=== PATIENT | female | born 1940 | race Caucasian/White ===

== ENCOUNTER 2020-11-23 16:35 | Inpatient (IN) ==
[2020-11-23] MEDS ORDERED: 0.9 % SODIUM CHLORIDE 1,000 ML IV ONE (16:55)
--- NOTE | 2020-11-23 17:03 | Emergency Department Note ---
HPI General Chief complaint: Cold/Flu Symptoms Stated complaint: covid symptoms, hypoxia Time Seen by Provider: 11/23/20 16:38 Source: patient Mode of arrival: ambulatory Limitations: no limitations History of Present Illness HPI Narrative: Narrative: 80-year-old female presents emergency department with concerns of shortness of breath. She was seen by her primary care provider today who performed a CT of her chest which showed disseminated groundglass opacities. She had received her 1st COVID-19 vaccination on 11/07/2020. Patient reports that since then she has feels that she is slowly declining more and more and getting progressively short of breath. And the shortness of breath is worse with exertion. She endorses nonproductive cough. She denies headache, changes in vision(although she has been treated by Dr. Garcia for quite some time for some changes to her vision but nothing acute in the last 2 weeks) fever, abdominal pain, nausea, vomiting, chest pain, diarrhea. Related Data Previous Rx's Medication Instructions Recorded ascorbate calcium (vitamin C) 500 500 mg PO QDAY #90 tab 11/19/20 mg tablet ferrous sulfate 325 mg (65 mg 325 mg PO QDAY #90 tab 11/19/20 iron) tablet Allergies Allergy/AdvReac Type Severity Reaction Status Date / Time No Known Drug Allergies Allergy Verified 11/16/20 13:30 Review of Systems ROS ROS Narrative: Narrative: She denies headache, fever change in vision, chest pain, abdominal pain, nausea, vomiting, diarrhea. All systems ED: reviewed and negative except as stated. [facility] Narrative Patient History Narrative: Narrative: Medical/Surgical/Family History All Active Problems (Updated 11/23/20 @ 19:43 by Rashad Menchaca PA-C) Hypoxia (Acute) Viral pneumonia (Acute) Elevated TSH (Acute) Bilateral pulmonary infiltrates on chest x-ray (Acute) Memory impairment (Acute) Low oxygen saturation (Acute) Depression (Acute) Encounter for post surgical wound check (Acute) Cellulitis of left hand (Acute) Sprain of collateral ligament of right knee (Acute) Closed fracture of tibial plateau (Acute) Medical History Cellulitis of left hand Encounter for post surgical wound check Surgical History H/O heart surgery (~1963) Family History Father , age 55 Lung cancer, Onset Age: 55 smoker Social History Smoking Status: Never smoker Alcohol Intake Frequency: does not drink Substance Use: does not use Exam Narrative Narrative: Narrative: General Limitations: no limitations Head Head: Present atraumatic, normocephalic and normal inspection Eye Eye: Present normal appearance and EOMI ENT ENT: Present other (Oropharynx normal. Patient has dry mucous membranes.) Respiratory Respiratory: Present other (Diffuse Rales. While on 2 L O2 she has normal respiratory rate and is not in any acute respiratory distress.) Cardiovascular Cardiovascular: Present regular rate, normal rhythm and normal heart sounds Adbominal Abdominal: Present soft and other (Nondistended, no organomegaly no rebound tenderness no guarding.) Neurological Neurological: Present alert and oriented X3 Psychiatric Psychiatric: Present anxious Skin Skin: Present warm (WNL), dry and normal color Course Vital Signs Vital signs: Vital Signs Temperature 98.6 F 11/23/20 16:36 Pulse Rate 75 11/23/20 16:36 Respiratory Rate 22 11/23/20 16:36 Blood Pressure 138/80 11/23/20 16:36 Pulse Oximetry (%) 55 L 11/23/20 16:36 Temperature 98.6 F 11/23/20 16:36 Pulse Rate 53 L 11/23/20 19:16 Respiratory Rate 25 H 11/23/20 19:16 Blood Pressure 120/57 11/23/20 19:16 Pulse Oximetry (%) 98 11/23/20 19:16 [facility] MDM Narrative Medical decision making narrative: Narrative: CT of the chest today showed:IMPRESSION: Disseminated severe groundglass opacities throughout both lungs concerning for multifocal infection i.e. viral pneumonia (cannot exclude COVID infection). Above findings are superimposed on mild pulmonary edema and moderate symmetric bronchiectasis. Cardiomegaly is noted. 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 Interpreted and Authenticated by: Serg Casiano M.D. Labs reviewed, no sign of bacterial infection, rapid Covid negative. A respiratory panel 1 and 2 and a PCR Covid send outs ordered. Normal pro-BMP. This still could be Covid pneumonia but along with the patient's severe hypoxia patient will be admitted for further evaluation and treatment. I have started remdesivir and dexamethasone here in the emergency department. Dr. Barnett has agreed to admit the patient. Lab Data Result diagrams: 11/23/20 17:17 11/23/20 17:17 Labs: Lab Results 11/23/20 11/23/20 11/23/20 Range/Units 17:17 17:17 17:17 WBC (4.5-11.0) K/mcL RBC (4.00-5.20) M/mcL Hgb (12.0-15.0) g/dL Hct (36.0-48.0) % MCV (80.0-100.0) fL MCH (26.0-34.0) pg MCHC (31.0-36.0) g/dL RDW (11.5-14.5) % Plt Count (140-440) K/mcL MPV (7.4-10.4) fL Neut % (Auto) (38.0-78.0) % Lymph % (Auto) (15.0-49.0) % Henderson % (Auto) (1.0-12.0) % Eos % (Auto) (0.0-7.0) % Baso % (Auto) (0.0-2.0) % Lymph # (Auto) (1.50-4.80) K/mcL Henderson # (Auto) (0.10-0.90) K/mcL Eos # (Auto) (0.00-0.70) K/mcL Baso # (Auto) (0.00-0.20) K/mcL Absolute Neutrophils (1.80-8.00) K/mcL ABG Methemoglobin (0.4-1.5) % VBG pH U VBG pCO2 mmHg VBG pO2 mmHg VBG HCO3 mmol/L VBG Total CO2 mmol/L VBG O2 Saturation % VBG Base Excess (-2-3) VBG Lactic Acid 1.4 (0.5-2.0) mmol/L Carboxyhemoglobin (0.0-1.5) % THgb Total Hemoglobin (13.5-16.5) gm/Dl Sodium 137 (133-145) mmol/L Potassium 3.8 (3.3-5.1) mmol/L Chloride 101 (96-108) mmol/L Carbon Dioxide 28 (22-30) mmol/L Anion Gap 8.0 (8.0-16.0) BUN 24 H (8-23) mg/dL Creatinine 0.9 (0.6-1.1) mg/dL GFR Calculation 60 Glucose 116 H (70-105) mg/dL Calcium 8.9 (8.6-10.4) mg/dL Magnesium 2.2 (1.6-2.5) mg/dL Total Bilirubin 0.3 (0.1-1.0) mg/dL AST 19 (<32) U/L ALT < 5 (<40) U/L Alkaline Phosphatase 45 (39-117) U/L Total Creatine Kinase 167 (24-170) U/L NT-Pro-B Natriuret Pep 229.2 (<450.0) pg/mL Total Protein 6.9 (5.9-8.4) gm/dL Albumin 3.1 L (3.2-5.2) gm/dL Globulin 3.8 H (2.2-3.7) gm/dL Albumin/Globulin Ratio 0.8 L (1.0-2.3) Lipase 38 (7-60) U/L Procalcitonin 0.14 H (<0.10) ng/mL 11/23/20 11/23/20 Range/Units 17:17 17:17 WBC 7.7 (4.5-11.0) K/mcL RBC 3.11 L (4.00-5.20) M/mcL Hgb 9.9 L (12.0-15.0) g/dL Hct 31.4 L (36.0-48.0) % MCV 101.0 H (80.0-100.0) fL MCH 31.8 (26.0-34.0) pg MCHC 31.5 (31.0-36.0) g/dL RDW 14.2 (11.5-14.5) % Plt Count 346 (140-440) K/mcL MPV 9.4 (7.4-10.4) fL Neut % (Auto) 82.2 H (38.0-78.0) % Lymph % (Auto) 8.3 L (15.0-49.0) % Henderson % (Auto) 6.5 (1.0-12.0) % Eos % (Auto) 2.6 (0.0-7.0) % Baso % (Auto) 0.4 (0.0-2.0) % Lymph # (Auto) 0.64 L (1.50-4.80) K/mcL Henderson # (Auto) 0.50 (0.10-0.90) K/mcL Eos # (Auto) 0.20 (0.00-0.70) K/mcL Baso # (Auto) 0.03 (0.00-0.20) K/mcL Absolute Neutrophils 6.35 (1.80-8.00) K/mcL ABG Methemoglobin 0.3 L (0.4-1.5) % VBG pH 7.43 U VBG pCO2 44.6 mmHg VBG pO2 41.1 mmHg VBG HCO3 28.9 mmol/L VBG Total CO2 30.3 mmol/L VBG O2 Saturation 67.6 % VBG Base Excess 4 H (-2-3) VBG Lactic Acid (0.5-2.0) mmol/L Carboxyhemoglobin 6.7 H (0.0-1.5) % THgb Total Hemoglobin 10.0 L (13.5-16.5) gm/Dl Sodium (133-145) mmol/L Potassium (3.3-5.1) mmol/L Chloride (96-108) mmol/L Carbon Dioxide (22-30) mmol/L Anion Gap (8.0-16.0) BUN (8-23) mg/dL Creatinine (0.6-1.1) mg/dL GFR Calculation Glucose (70-105) mg/dL Calcium (8.6-10.4) mg/dL Magnesium (1.6-2.5) mg/dL Total Bilirubin (0.1-1.0) mg/dL AST (<32) U/L ALT (<40) U/L Alkaline Phosphatase (39-117) U/L Total Creatine Kinase (24-170) U/L NT-Pro-B Natriuret Pep (<450.0) pg/mL Total Protein (5.9-8.4) gm/dL Albumin (3.2-5.2) gm/dL Globulin (2.2-3.7) gm/dL Albumin/Globulin Ratio (1.0-2.3) Lipase (7-60) U/L Procalcitonin (<0.10) ng/mL ED POC Tests ED POC Tests: ALICJA - SARS Antigen Negative EKG Data EKG #1: EKG results narrative: ECG shows possible sinus rhythm at 62 beats a minute. Normal axis, cannot determine FL interval, narrow QRS normal QTC. There are no signs of gout, Quctm-Dodhcjtom-Kllgk or HOCM. No dagger Q waves. There is no ST segment deviations or hyperacute T waves. Interpretation is possible sinus rhythm but low voltage. EKG #2: EKG results narrative: Second ECG is a slow down to the millimeters a second. Sinus bradycardia at 58 beats a minute. There is identifiable P waves with borderline first-degree AV block. Normal axis, otherwise there is no ST segment deviations or hyperacute T waves or other signs of ischemia. My interpretation is sinus bradycardia. Discharge Plan Patient/Caregiver Discharge Instructions Pt seen by STREET SUPERVISOR/PA only: Yes Clinical Impression: Hypoxia, Viral pneumonia Patient Disposition: Xfer As Inpt ([facility]) Condition: Fair Follow up with: Zita Forde PA-C [Primary Care Provider] - Prescriptions: No Action ferrous sulfate [Feosol] 325 mg (65 mg iron) tablet 325 mg PO QDAY Qty: 90 RF: 1 ascorbate calcium (vitamin C) 500 mg tablet 500 mg PO QDAY Qty: 90 RF: 1
[2020-11-23 17:56] LABS: ABG Methemoglobin 0.3 % (0.4-1.5); VBG Base Excess 4 (-2-3); VBG HCO3 28.9 mmol/L; VBG Oxygen Saturation 67.6 %; VBG PCO2 44.6 mmHg; VBG PH 7.43 U; VBG PO2 41.1 mmHg; VBG Total CO2 30.3 mmol/L
[2020-11-23 18:04] LABS: Basophils # (Auto) 0.03 K/mcL (0.00-0.20); Basophils % (Auto) 0.4 % (0.0-2.0); Eosinophils % (Auto) 2.6 % (0.0-7.0); Hematocrit 31.4 % (36.0-48.0); Hemoglobin 9.9 g/dL (12.0-15.0); Lymphocytes # (Auto) 0.64 K/mcL (1.50-4.80); Lymphocytes % (Auto) 8.3 % (15.0-49.0); Mean Corpuscular HGB Conc 31.5 g/dL (31.0-36.0); Mean Platelet Volume 9.4 fL (7.4-10.4); Monocytes % (Auto) 6.5 % (1.0-12.0); Neutrophils % (Auto) 82.2 % (38.0-78.0); Platelet Count 346 K/mcL (140-440); RBC 3.11 M/mcL (4.00-5.20); Red Cell Distribution Width 14.2 % (11.5-14.5); WBC 7.7 K/mcL (4.5-11.0)
[2020-11-23 18:22] LABS: proBNP 229.2 pg/mL (<450.0)
[2020-11-23 18:25] LABS: ALT/SGPT < 5 U/L (<40); AST/SGOT 19 U/L (<32); Albumin 3.1 gm/dL (3.2-5.2); Albumin/Globulin Ratio 0.8 (1.0-2.3); Alkaline Phosphatase 45 U/L (39-117); Bilirubin,Total 0.3 mg/dL (0.1-1.0); Blood Urea Nitrogen 24 mg/dL (8-23); Calcium 8.9 mg/dL (8.6-10.4); Carbon Dioxide 28 mmol/L (22-30); Chloride 101 mmol/L (96-108); Creatine Kinase 167 U/L (24-170); Globulin 3.8 gm/dL (2.2-3.7); Glomerular Filtration Rate 60; Glucose 116 mg/dL (70-105)
[2020-11-23] MEDS ORDERED: DEXAMETHASONE 10 MG/ML VIAL IV ONE (19:27)
[2020-11-23] MEDS ORDERED: REMDESIVIR 200 MG in 0.9 % SODIUM CHLORIDE 250 ML IV ONE ×2 (19:27→20:57)
--- NOTE | 2020-11-23 20:15 | Internal Med History&Physical ---
HPI History of Present Illness Patient information: Note initiated : 11/23/20 at 8:10 pm Service Date, if different from initiated Date: [] Patient: Mouna Jorgensen a 80 y/o F admitted on for covid symptoms, hypoxia. Chief Complaint: Shortness of breath History of present illness: Ms. Jorgensen is a 80 year old F with no significant prior medical history who presents to the ER with 3 weeks onset of worsening shortness of breath, malaise, weakness and loss of appetite. Patient had a short of Covid vaccine 3 weeks ago and following that she has noticed increasing malaise and a gradual decline in general functionality. 2 weeks prior to presentation started experiencing exertional shortness of breath which has progressed very and even minimal activity would lead to dyspnea. She was evaluated at primary care physician's office with a CT chest that showed multifocal chest infiltrates. She was directed to the ER for further evaluation Initial work-up was consistent with hypoxia spray failure requiring 6 L oxygen. Patient was started on remdesivir/dexamethasone after Covid test was ordered. Hospitalist service was consulted At the time of my evaluation patient is alert and was able to answer most the questions. She denies hemoptysis/diarrhea, dysuria endorses to myalgia weakness and generalized malaise and loss of appetite. She denies dysuria, diarrhea, headache, neck stiffness or photophobia. Review of systems A 10 point review system was performed and is negative except for ones discussed above PFSH PFSH All Active Problems (Updated 11/23/20 @ 19:43 by Rashad Menchaca PA-C) Hypoxia (Acute) Viral pneumonia (Acute) Elevated TSH (Acute) Bilateral pulmonary infiltrates on chest x-ray (Acute) Memory impairment (Acute) Low oxygen saturation (Acute) Depression (Acute) Encounter for post surgical wound check (Acute) Cellulitis of left hand (Acute) Sprain of collateral ligament of right knee (Acute) Closed fracture of tibial plateau (Acute) Medical History Cellulitis of left hand Encounter for post surgical wound check Surgical History H/O heart surgery (~1963) Family History Father , age 55 Lung cancer, Onset Age: 55 smoker Social History adopted: No caregiver/support person: No foster care: No household members: spouse lives independently: Yes marital status: education level: college smoking status: Never smoker alcohol intake frequency: does not drink substance use type: does not use MEDS/ALLERGIES Home Medications and Allergies Home Medications Medication Instructions Recorded Confirmed Type ascorbate calcium (vitamin C) 500 500 mg PO QDAY #90 tab 11/19/20 11/23/20 Rx mg tablet ferrous sulfate 325 mg (65 mg 325 mg PO QDAY #90 tab 11/19/20 11/23/20 Rx iron) tablet Allergies Allergy/AdvReac Type Severity Reaction Status Date / Time No Known Drug Allergies Allergy Verified 11/16/20 13:30 EXAM Constitutional Vitals: Temp Pulse Resp BP Pulse Ox 98.6 F 58 L 22 137/60 96 11/23/20 16:36 11/23/20 19:46 11/23/20 19:46 11/23/20 19:46 11/23/20 19:46 Thin and frail elderly Head normocephalic Oral cavity moist No ear nose discharge Eye movement symmetrical Neck supple no lymphadenopathy S1-S2 occasionally irregular Minimally labored breathing Nondistended nontender abdomen Lower extremity no cyanosis clubbing or joint swelling Skin no suspicious lesion Psych anxious but alert cooperative Neuro normal higher function DATA Data Completed and Pending Labs: Labs from last 24 hours 11/23/20 11/23/20 11/23/20 17:17 17:17 17:17 WBC 7.7 RBC 3.11 L Hgb 9.9 L Hct 31.4 L MCV 101.0 H MCH 31.8 MCHC 31.5 RDW 14.2 Plt Count 346 MPV 9.4 Neut % (Auto) 82.2 H Lymph % (Auto) 8.3 L Park % (Auto) 6.5 Eos % (Auto) 2.6 Baso % (Auto) 0.4 Lymph # (Auto) 0.64 L [place] # (Auto) 0.50 Eos # (Auto) 0.20 Baso # (Auto) 0.03 Absolute Neutrophils 6.35 ABG Methemoglobin 0.3 L VBG pH 7.43 VBG pCO2 44.6 VBG pO2 41.1 VBG HCO3 28.9 VBG Total CO2 30.3 VBG O2 Saturation 67.6 VBG Base Excess 4 H VBG Lactic Acid Carboxyhemoglobin 6.7 H Total Hemoglobin 10.0 L Sodium Potassium Chloride Carbon Dioxide Anion Gap BUN Creatinine GFR Calculation Glucose Calcium Magnesium Total Bilirubin AST ALT Alkaline Phosphatase Total Creatine Kinase NT-Pro-B Natriuret Pep Total Protein Albumin Globulin Albumin/Globulin Ratio Lipase Procalcitonin 0.14 H 11/23/20 11/23/20 17:17 17:17 WBC RBC Hgb Hct MCV MCH MCHC RDW Plt Count MPV Neut % (Auto) Lymph % (Auto) Park % (Auto) Eos % (Auto) Baso % (Auto) Lymph # (Auto) [place] # (Auto) Eos # (Auto) Baso # (Auto) Absolute Neutrophils ABG Methemoglobin VBG pH VBG pCO2 VBG pO2 VBG HCO3 VBG Total CO2 VBG O2 Saturation VBG Base Excess VBG Lactic Acid 1.4 Carboxyhemoglobin Total Hemoglobin Sodium 137 Potassium 3.8 Chloride 101 Carbon Dioxide 28 Anion Gap 8.0 BUN 24 H Creatinine 0.9 GFR Calculation 60 Glucose 116 H Calcium 8.9 Magnesium 2.2 Total Bilirubin 0.3 AST 19 ALT < 5 Alkaline Phosphatase 45 Total Creatine Kinase 167 NT-Pro-B Natriuret Pep 229.2 Total Protein 6.9 Albumin 3.1 L Globulin 3.8 H Albumin/Globulin Ratio 0.8 L Lipase 38 Procalcitonin A/P Narrative A/P Narrative: * Acute hypoxic respiratory failure-start supplemental oxygen and treatment of primary etiology. * Multifocal pneumonia possibly atypical, rule out Covid/bacterial pneumonia. Start empiric antibiotics/remdesivir/dexamethasone. * Protein calorie malnutrition/weakness and loss of appetite likely secondary to acute viral infection. Type intervention * Full code * Prophylaxis Heparin Plan * Inpatient admission * Noninvasive ventilation if indicated * Remdesivir dexamethasone/thrombosis prophylaxis/empiric antibiotics * Serial inflammatory markers * PT OT nutrition support Time Spent With Patient Time: Total time spent is greater than 50% in coordination of care (as documented) at patient's floor/unit and/or counseling patient:
[2020-11-23] MEDS ORDERED: MAGNESIUM SULFATE 2 GM/50 ML BAG IV PRN (20:57)
[2020-11-23] MEDS ORDERED: ALBUTEROL SULFATE 200 PUFF INHALER INH PRN (20:57)
[2020-11-23] MEDS ORDERED: POTASSIUM CHLORIDE 40 MEQ in DEXTROSE 5% IN WATER 500 ML IV PRN (20:57)
[2020-11-23] MEDS ORDERED: ONDANSETRON 4 MG/2 ML VIAL IV PRN (20:57)
[2020-11-23] MEDS ORDERED: guaiFENesin/CODEINE 10 ML UDC PO PRN (20:57)
[2020-11-23] MEDS ORDERED: ACETAMINOPHEN 325 MG TABLET PO PRN (20:57)
[2020-11-23] MEDS ORDERED: BISACODYL 10 MG SUPP.RECT PR PRN (20:57)
[2020-11-23] MEDS ORDERED: POTASSIUM CHLORIDE 20 MEQ PACKET PO PRN (20:57)
[2020-11-23] MEDS ORDERED: ONDANSETRON 4 MG ODT TABLET SL PRN (20:57)
[2020-11-23] MEDS ORDERED: MELATONIN 3 MG TABLET PO PRN (20:57)
[2020-11-23] MEDS ORDERED: ACETAMINOPHEN 650 MG/65 ML BAG IV PRN (20:57)
[2020-11-23] MEDS ORDERED: NEUTRA PHOS 1 PACKET PO PRN (20:57)
[2020-11-23] MEDS ORDERED: POLYETHYLENE GLYCOL 3350 17 GM PACKET PO PRN (20:57)
[2020-11-23] MEDS: DOCUSATE SODIUM 100 MG CAPSULE PO SCH (21:47)
[2020-11-23] MEDS: SENNOSIDES/DOCUSATE SODIUM 1 TAB TABLET PO SCH (21:48)
[2020-11-23] MEDS: cefTRIAXone 2 GM in DEXTROSE 5% IN WATER 50 ML IV SCH (22:25)
[2020-11-23] MEDS: 0.9 % SODIUM CHLORIDE 1,000 ML IV SCH (22:26)
[2020-11-23] MEDS: 0.9 % SODIUM CHLORIDE 10 ML SYRINGE IV SCH (22:30)
[2020-11-23] MEDS: HEPARIN 5,000 UNIT/ML VIAL SQ SCH (22:30)
[2020-11-23] MEDS ORDERED: cefTRIAXone 2 GM VIAL ONE (22:31)
[2020-11-23] MEDS: AZITHROMYCIN 500 MG in DEXTROSE 5% IN WATER 250 ML IV SCH (23:59)
[2020-11-24] MEDS: 0.9 % SODIUM CHLORIDE 10 ML SYRINGE IV SCH ×3 (05:55→21:41)
[2020-11-24 06:23] LABS: Basophils # (Auto) 0.02 K/mcL (0.00-0.20); Basophils % (Auto) 0.3 % (0.0-2.0); Eosinophils # (Auto) 0.01 K/mcL (0.00-0.70); Eosinophils % (Auto) 0.2 % (0.0-7.0); Hematocrit 31.9 % (36.0-48.0); Hemoglobin 9.9 g/dL (12.0-15.0); Lymphocytes # (Auto) 0.44 K/mcL (1.50-4.80); Lymphocytes % (Auto) 7.5 % (15.0-49.0); Mean Cell Volume 101.3 fL (80.0-100.0); Mean Platelet Volume 9.8 fL (7.4-10.4); Monocytes # (Auto) 0.08 K/mcL (0.10-0.90); Monocytes % (Auto) 1.4 % (1.0-12.0); Neutrophils % (Auto) 90.6 % (38.0-78.0); Platelet Count 315 K/mcL (140-440); RBC 3.15 M/mcL (4.00-5.20); Red Cell Distribution Width 14.1 % (11.5-14.5); WBC 5.9 K/mcL (4.5-11.0)
[2020-11-24 06:48] LABS: ALT/SGPT < 5 U/L (<40); AST/SGOT 17 U/L (<32); Albumin 2.8 gm/dL (3.2-5.2); Albumin/Globulin Ratio 0.8 (1.0-2.3); Alkaline Phosphatase 43 U/L (39-117); Bilirubin,Direct < 0.2 mg/dL (0-0.3); Bilirubin,Total 0.2 mg/dL (0.1-1.0); Blood Urea Nitrogen 19 mg/dL (8-23); Calcium 8.2 mg/dL (8.6-10.4); Carbon Dioxide 28 mmol/L (22-30); Chloride 108 mmol/L (96-108); Globulin 3.5 gm/dL (2.2-3.7); Glomerular Filtration Rate 81; Glucose 122 mg/dL (70-105); Lactate Dehydrogenase 409 U/L (135-225); Phosphorous 3.4 mg/dL (2.5-4.5); Triglycerides 93 mg/dL (<150); Uric Acid 3.3 mg/dL (2.5-8.0)
[2020-11-24 06:58] LABS: Appearance,Urine Clear (Clear); Bilirubin,Urine Negative (Negative); Color,Urine Yellow; Culture Indicated,Urine No; Glucose,Urine (UA) Negative (Negative); Ketones,Urine Negative (Negative); Leukocyte Esterase,Urine Negative /ug (Negative); Mucus,Urine MANY /hpf; Nitrate,Urine Negative (Negative); Specific Gravity,Urine >= 1.030 (1.000-1.035); Urine Amorphous Crystals FEW /hpf; Urine Blood Negative ery/mcL (Negative); Urine Hyaline Cast 4 /lph (0-2); Urine RBC 1 /hpf (0-3); Urine Squamous Epithelial Cell 5 /hpf (0-4); Urine Transitional Epi Cells < 1 /hpf (0-2); Urine WBC 3 /hpf (0-4); Urobilinogen,Urine Normal
[2020-11-24] MEDS: HEPARIN 5,000 UNIT/ML VIAL SQ SCH ×2 (08:31→21:40)
[2020-11-24] MEDS: MULTIVIT,THER IRON,CA,FA & MIN 1 TABLET PO SCH (08:31)
[2020-11-24] MEDS: ASCORBIC ACID 500 MG TABLET PO SCH (08:31)
[2020-11-24] MEDS: DOCUSATE SODIUM 100 MG CAPSULE PO SCH ×2 (08:32→21:40)
[2020-11-24] MEDS: DEXAMETHASONE 4 MG TABLET PO SCH (08:32)
[2020-11-24] MEDS: FERROUS SULFATE 325 MG TABLET PO SCH (08:35)
--- NOTE | 2020-11-24 08:57 | Internal Med Progress Note ---
SUBJECTIVE Subjective Patient information: Note initiated : 11/24/20 at 8:53 am Service Date, if different from initiated Date: [] Patient: Mouna Jorgensen 80 y/o F admitted on 11/23/20 for covid symptoms, hypoxia. Chief Complaint: Interval history: History of present illness: Ms. Jorgensen is a 80 year old F with no significant prior medical history who presents to the ER with 3 weeks onset of worsening shortness of breath, malaise, weakness and loss of appetite. Patient had a short of Covid vaccine 3 weeks ago and following that she has noticed increasing malaise and a gradual decline in general functionality. 2 weeks prior to presentation started experiencing exertional shortness of breath which has progressed very and even minimal activity would lead to dyspnea. She was evaluated at primary care physician's office with a CT chest that showed multifocal chest infiltrates. She was directed to the ER for further evaluation Initial work-up was consistent with hypoxia spray failure requiring 6 L oxygen. Patient was started on remdesivir/dexamethasone after Covid test was ordered. Hospitalist service was consulted At the time of my evaluation patient is alert and was able to answer most the questions. She denies hemoptysis/diarrhea, dysuria endorses to myalgia weakness and generalized malaise and loss of appetite. She denies dysuria, diarrhea, headache, neck stiffness or photophobia. 11/24-patient seen in room this morning. No overnight events. Looks a lot better. Denies fever chills nausea vomiting. No additional concerns per nursing staff. Down from 6 to 3 L oxygen this morning. No overnight telemetry events. Afebrile. On remdesivir/dexamethasone. Covid PCR pending. Continue contact precaution. Constitutional Vitals: Vital Signs Temp Pulse Resp BP Pulse Ox 98 F 44 L 18 92/52 95 11/24/20 08:01 11/24/20 06:01 11/24/20 08:01 11/24/20 08:01 11/24/20 08:01 Period Temp Pulse Resp BP Sys/Landeros Pulse Ox Last 24 Hr 97.0 F-99.3 F 44-75 13-26 92-157/50-85 55-100 Intake and Output 11/23/20 11/24/20 11/24/20 21:59 05:59 13:59 Intake Total 1250 50 250 Output Total 100 150 Balance 1150 -100 250 Weight 43.409 kg Feels a lot better, nonlabored breathing On status oxygen Frail and thin elderly No telemetry events Intake & Output: Intake & Output 11/23/20 11/24/20 11/24/20 21:59 05:59 13:59 Intake Total 1250 50 250 Output Total 100 150 Balance 1150 -100 250 Weight 43.409 kg Intake: IV 1250 50 250 Sodium Chloride 0.9% 1,000 ml @ 1000 Wide Open IV .Q0M ONE Rx#: [id number] Zithromax 500 mg In Dextrose 5% 250 in Water 250 ml @ 250 mls/hr IV Q24H [facility] Rx#:[id number] Veklury 200 mg In Sodium 250 Chloride 0.9% 250 ml @ 500 mls/ hr IV ONCE ONE Rx#:[id number] Rocephin 2 gm In Dextrose 5% in 50 Water 50 ml @ 100 mls/hr IV Q24H [facility] Rx#:[id number] Output: Void Amount 100 150 Other: Urine Appearance Clear Clear Urine Color Bright Yellow Dark Yellow Urine Odor Normal Strong OBJ DATA Labs CBC & Chem 7: 11/24/20 05:31 11/24/20 05:31 Labs: Abnormal Lab Results 11/24/20 11/24/20 11/24/20 06:00 05:32 05:31 RBC Hgb Hct MCV Neut % (Auto) Lymph % (Auto) Lymph # (Auto) [place] # (Auto) ABG Methemoglobin VBG Base Excess Carboxyhemoglobin Total Hemoglobin BUN Glucose 122 H Calcium 8.2 L Lactate Dehydrogenase 409 H Albumin 2.8 L Globulin Albumin/Globulin Ratio 0.8 L Procalcitonin 0.15 H Urine Protein 30 mg/dl A Ur Squamous Epith Cells 5 H Amorphous Crystals Few A Hyaline Casts 4 H Urine Mucus Many A 11/24/20 11/23/20 11/23/20 05:31 17:17 17:17 RBC 3.15 L 3.11 L Hgb 9.9 L 9.9 L Hct 31.9 L 31.4 L MCV 101.3 H 101.0 H Neut % (Auto) 90.6 H 82.2 H Lymph % (Auto) 7.5 L 8.3 L Lymph # (Auto) 0.44 L 0.64 L [place] # (Auto) 0.08 L ABG Methemoglobin 0.3 L VBG Base Excess 4 H Carboxyhemoglobin 6.7 H Total Hemoglobin 10.0 L BUN Glucose Calcium Lactate Dehydrogenase Albumin Globulin Albumin/Globulin Ratio Procalcitonin Urine Protein Ur Squamous Epith Cells Amorphous Crystals Hyaline Casts Urine Mucus 11/23/20 11/23/20 17:17 17:17 RBC Hgb Hct MCV Neut % (Auto) Lymph % (Auto) Lymph # (Auto) [place] # (Auto) ABG Methemoglobin VBG Base Excess Carboxyhemoglobin Total Hemoglobin BUN 24 H Glucose 116 H Calcium Lactate Dehydrogenase Albumin 3.1 L Globulin 3.8 H Albumin/Globulin Ratio 0.8 L Procalcitonin 0.14 H Urine Protein Ur Squamous Epith Cells Amorphous Crystals Hyaline Casts Urine Mucus Meds: Medications Acetaminophen (Acetaminophen 325 Mg Tablet) 650 mg PO Q4-6HP PRN; Protocol PRN Reason: Per Pain Protocol/Fever > 101 Albuterol Sulfate (Albuterol Sulfate 200 Puff Inhaler) 1 - 2 puff INH Q4HP PRN PRN Reason: Shortness Of Breath Ascorbic Acid (Ascorbic Acid 500 Mg Tablet) 500 mg PO DAILY [facility] Last Admin: 11/24/20 08:31 Dose: 500 mg Documented by: Bisacodyl (Bisacodyl 10 Mg Supp.Rect) 10 mg [place] Q2-3DAYS PRN PRN Reason: Constipation Dexamethasone (Dexamethasone 4 Mg Tablet) 6 mg PO DAILY [facility] Last Admin: 11/24/20 08:32 Dose: 6 mg Documented by: Docusate Sodium (Docusate Sodium 100 Mg Capsule) 100 mg PO BID [facility] Last Admin: 11/24/20 08:32 Dose: Not Given Documented by: Ferrous Sulfate (Ferrous Sulfate 325 Mg Tablet) 325 mg PO QDAY [facility] Last Admin: 11/24/20 08:35 Dose: 325 mg Documented by: Guaifenesin/Codeine Phosphate (Guaifenesin/Codeine 10 Ml Udc) 10 ml PO Q4HP PRN PRN Reason: Cough Heparin Sodium (Porcine) (Heparin 5,000 Unit/Ml Vial) 5,000 unit SQ Q12 [facility] Last Admin: 11/24/20 08:31 Dose: 5,000 unit Documented by: Azithromycin 500 mg/ Dextrose 250 mls @ 250 mls/hr IV Q24H [facility]; Protocol Stop: 11/25/20 23:59 Last Infusion: 11/24/20 08:33 Dose: Infused Documented by: Potassium Chloride 40 meq/ (Dextrose) 520 mls @ 130 mls/hr IV UD PRN PRN Reason: K+ = or < 3.5 Acetaminophen (Ofirmev) 650 mg in 65 mls @ 130 mls/hr IV Q6HP PRN; Protocol PRN Reason: Per Pain Protocol/Fever > 101 Magnesium Sulfate (Magnesium Sulfate) 2 gm in 50 mls @ 50 mls/hr IV UD PRN PRN Reason: MG = or < 1.7 Sodium Chloride (Sodium Chloride 0.9%) 1,000 mls @ 50 mls/hr IV .Q20H [facility] Stop: 11/26/20 08:56 Last Admin: 11/23/20 22:26 Dose: 50 mls/hr Documented by: Ceftriaxone Sodium 2 gm/ (Dextrose) 50 mls @ 100 mls/hr IV Q24H [facility]; Protocol Last Infusion: 11/23/20 22:55 Dose: Infused Documented by: Iron Carb/Multivit/[place]/Folic Acid (Multivit,Ther Iron,Ca,Fa & Min 1 Tablet) 1 tab PO DAILY [facility] Last Admin: 11/24/20 08:31 Dose: 1 tab Documented by: Melatonin (Melatonin 3 Mg Tablet) 3 mg PO HSP PRN PRN Reason: Insomnia Ondansetron HCl (Ondansetron 4 Mg Odt Tablet) 4 mg SL Q4-6HP PRN; Protocol PRN Reason: Nausea And Vomiting Ondansetron HCl (Ondansetron 4 Mg/2 Ml Vial) 4 mg IV Q4-6HP PRN; Protocol PRN Reason: Nausea And Vomiting Polyethylene Glycol (Polyethylene Glycol 3350 17 Gm Packet) 17 gm PO DAILYP PRN PRN Reason: Constipation Potassium Chloride (Potassium Chloride 20 Meq Packet) 40 meq PO DAILYP PRN PRN Reason: K+ < 3.5 Potassium/Phosphorus/Sodium (Neutra Phos 1 Packet) 2 packet PO DAILY PRN PRN Reason: PHOS <2.5 Senna/Docusate Sodium (Sennosides/Docusate Sodium 1 Tab Tablet) 1 tab PO HS [facility] Last Admin: 11/23/20 21:48 Dose: Not Given Documented by: Sodium Chloride (0.9 % Sodium Chloride 10 Ml Syringe) 10 ml IV Q8 [facility] Last Admin: 11/24/20 05:55 Dose: 10 ml Documented by: ABG Interpretation ABG results: 11/23/20 17:17 ABG Methemoglobin 0.3 L VBG pH 7.43 VBG pCO2 44.6 VBG pO2 41.1 VBG HCO3 28.9 VBG Total CO2 30.3 VBG O2 Saturation 67.6 VBG Base Excess 4 H A/P Narrative A/P Narrative: * Acute hypoxic respiratory failure-clinically improving now down to 3 L oxygen from 6. Multifocal bilateral infiltrates consistent with viral pneumonia. Continue treatment of primary etiology. * Multifocal pneumonia possibly atypical versus viral. Await COVID-19 testing. On remdesivir day 2/atypical bacterial coverage * Protein calorie malnutrition/weakness and loss of appetite likely secondary to acute viral infection. Type intervention * Full code * Prophylaxis Heparin Plan * Continue supplemental oxygen and wean as tolerated * await COVID-19 testing * Remdesivir dexamethasone/thrombosis prophylaxis/empiric antibiotics * Serial inflammatory markers * PT OT nutrition support * Thrombosis prophylaxis * Discharge planning Time Spent With Patient Time: Total time spent is greater than 50% in coordination of care (as documented) at patient's floor/unit and/or counseling patient: QUALITY VTE Deep Vein Thrombosis/Pulmonary Embolism Present on Admission: No
[2020-11-24] MEDS ORDERED: REMDESIVIR 100 MG in 0.9 % SODIUM CHLORIDE 250 ML IV SCH ×2 (11:00→21:00)
[2020-11-24] MEDS: cefTRIAXone 2 GM in DEXTROSE 5% IN WATER 50 ML IV SCH (14:00)
[2020-11-24] MEDS: AZITHROMYCIN 500 MG in DEXTROSE 5% IN WATER 250 ML IV SCH (16:35)
[2020-11-24] MEDS: 0.9 % SODIUM CHLORIDE 1,000 ML IV SCH (16:36)
[2020-11-24] MEDS: SENNOSIDES/DOCUSATE SODIUM 1 TAB TABLET PO SCH (21:40)
[2020-11-25] MEDS: 0.9 % SODIUM CHLORIDE 10 ML SYRINGE IV SCH ×3 (04:59→21:40)
[2020-11-25 07:03] LABS: Basophils # (Auto) 0.03 K/mcL (0.00-0.20); Basophils % (Auto) 0.3 % (0.0-2.0); Eosinophils # (Auto) 0.05 K/mcL (0.00-0.70); Eosinophils % (Auto) 0.5 % (0.0-7.0); Hematocrit 29.7 % (36.0-48.0); Hemoglobin 9.3 g/dL (12.0-15.0); Lymphocytes # (Auto) 0.91 K/mcL (1.50-4.80); Lymphocytes % (Auto) 8.8 % (15.0-49.0); Mean Cell Volume 101.7 fL (80.0-100.0); Mean Corpuscular HGB Conc 31.3 g/dL (31.0-36.0); Mean Platelet Volume 9.9 fL (7.4-10.4); Monocytes # (Auto) 0.55 K/mcL (0.10-0.90); Monocytes % (Auto) 5.3 % (1.0-12.0); Neutrophils % (Auto) 85.1 % (38.0-78.0); Platelet Count 346 K/mcL (140-440); RBC 2.92 M/mcL (4.00-5.20); Red Cell Distribution Width 14.1 % (11.5-14.5); WBC 10.4 K/mcL (4.5-11.0)
[2020-11-25 07:14] LABS: ALT/SGPT < 5 U/L (<40); AST/SGOT 20 U/L (<32); Alkaline Phosphatase 40 U/L (39-117); Bilirubin,Direct < 0.2 mg/dL (0-0.3); Bilirubin,Total < 0.2 mg/dL (0.1-1.0); Blood Urea Nitrogen 22 mg/dL (8-23); Calcium 8.6 mg/dL (8.6-10.4); Carbon Dioxide 28 mmol/L (22-30); Chloride 106 mmol/L (96-108); Globulin 3.1 gm/dL (2.2-3.7); Glomerular Filtration Rate 81; Glucose 80 mg/dL (70-105); Lactate Dehydrogenase 381 U/L (135-225); Phosphorous 2.5 mg/dL (2.5-4.5); Triglycerides 85 mg/dL (<150); Uric Acid 3.4 mg/dL (2.5-8.0)
--- NOTE | 2020-11-25 07:58 | XRay Report ---
CLINICAL INFORMATION: Dyspnea COMPARISON: Two view chest 11/16/2020 FINDINGS: Moderate cardiomegaly show slight progression. Mediastinum is unremarkable. Pulmonary vessels are now moderately congested. There is marked diffuse interstitial /alveolar edema or, less likely, infiltrate throughout both lungs with right midlung sparing. No effusion IMPRESSION: Moderate diffuse airspace disease throughout both lungs likely represents atypically distributed edema from CHF. This has progressed considerably since exam over one week ago. Underlying aspiration, pneumonia or ARDS is possible but less likely Interpreted and Authenticated by: Felipe Juarez 11/25/20
[2020-11-25] MEDS: DOCUSATE SODIUM 100 MG CAPSULE PO SCH ×2 (08:14→21:40)
[2020-11-25] MEDS: ASCORBIC ACID 500 MG TABLET PO SCH (08:14)
[2020-11-25] MEDS: DEXAMETHASONE 4 MG TABLET PO SCH (08:14)
[2020-11-25] MEDS: MULTIVIT,THER IRON,CA,FA & MIN 1 TABLET PO SCH (08:14)
[2020-11-25] MEDS: cefTRIAXone 2 GM in DEXTROSE 5% IN WATER 50 ML IV SCH (08:14)
[2020-11-25] MEDS: HEPARIN 5,000 UNIT/ML VIAL SQ SCH ×2 (08:14→21:44)
[2020-11-25] MEDS: FERROUS SULFATE 325 MG TABLET PO SCH (08:16)
[2020-11-25] MEDS: AZITHROMYCIN 500 MG in DEXTROSE 5% IN WATER 250 ML IV SCH (09:01)
--- NOTE | 2020-11-25 12:40 | Internal Med Progress Note ---
SUBJECTIVE Subjective Patient information: Note initiated : 11/25/20 at 12:37 pm Service Date, if different from initiated Date: [] Patient: Mouna Jorgensen 80 y/o F admitted on 11/23/20 for covid symptoms, hypoxia. Chief Complaint: [] Interval history: History of present illness: Ms. Jorgensen is a 80 year old F with no significant prior medical history who presents to the ER with 3 weeks onset of worsening shortness of breath, malaise, weakness and loss of appetite. Patient had a short of Covid vaccine 3 weeks ago and following that she has noticed increasing malaise and a gradual decline in general functionality. 2 weeks prior to presentation started experiencing exertional shortness of breath which has progressed very and even minimal activity would lead to dyspnea. She was evaluated at primary care physician's office with a CT chest that showed multifocal chest infiltrates. She was directed to the ER for further evaluation Initial work-up was consistent with hypoxia spray failure requiring 6 L oxygen. Patient was started on remdesivir/dexamethasone after Covid test was ordered. Hospitalist service was consulted At the time of my evaluation patient is alert and was able to answer most the questions. She denies hemoptysis/diarrhea, dysuria endorses to myalgia weakness and generalized malaise and loss of appetite. She denies dysuria, diarrhea, headache, neck stiffness or photophobia. 11/24-patient seen in room this morning. No overnight events. Looks a lot better. Denies fever chills nausea vomiting. No additional concerns per nursing staff. Down from 6 to 3 L oxygen this morning. No overnight telemetry events. Afebrile. On remdesivir/dexamethasone. Covid PCR pending. Continue contact precaution. 11/25-patient doing well. Improved shortness of breath. T-max 99.4. White count 10.4 Covid negative. Remdesivir discontinued. Continuing antibiotics for pneumonia. On 5 L oxygen. Constitutional Vitals: Vital Signs Temp Pulse Resp BP Pulse Ox 97.6 F 48 L 16 114/78 100 11/25/20 12:01 11/25/20 12:15 11/25/20 12:01 11/25/20 12:01 11/25/20 12:15 Period Temp Pulse Resp BP Sys/Landeros Pulse Ox Last 24 Hr 97.2 F-99.1 F 44-58 15-24 93-125/49-78 87-100 Intake and Output 11/24/20 11/25/20 11/25/20 20:59 05:59 13:59 Intake Total 0 Output Total Balance 0 Weight alert oriented, Nonlabored breathing currently on 5 L oxygen thin and frail elderly BMI 18 No lymphedema Intake & Output: Intake & Output 11/24/20 11/25/20 11/25/20 20:59 05:59 13:59 Intake Total 0 Output Total Balance 0 Weight Intake: IV Sodium Chloride 0.9% 1,000 ml @ 50 mls/hr IV .Q20H PAT Rx#: [id number] Zithromax 500 mg In Dextrose 5% in Water 250 ml @ 250 mls/hr IV Q24H PAT Rx#:[id number] Rocephin 2 gm In Dextrose 5% in Water 50 ml @ 100 mls/hr IV Q24H PAT Rx#:[id number] Oral 0 Output: Void Amount Other: Urine Appearance Urine Color Urine Odor # Voids 1 # Bowel Movements 1 OBJ DATA Labs CBC & Chem 7: 11/25/20 05:04 11/25/20 05:04 Labs: Abnormal Lab Results 11/25/20 11/25/20 11/24/20 05:04 05:04 06:00 RBC 2.92 L Hgb 9.3 L Hct 29.7 L MCV 101.7 H Neut % (Auto) 85.1 H Lymph % (Auto) 8.8 L Lymph # (Auto) 0.91 L [place] # (Auto) Absolute Neutrophils 8.83 H ABG Methemoglobin VBG Base Excess Carboxyhemoglobin Total Hemoglobin BUN Glucose Calcium Lactate Dehydrogenase 381 H Albumin 3.0 L Globulin Albumin/Globulin Ratio Procalcitonin Urine Protein 30 mg/dl A Ur Squamous Epith Cells 5 H Amorphous Crystals Few A Hyaline Casts 4 H Urine Mucus Many A 11/24/20 11/24/20 11/24/20 05:32 05:31 05:31 RBC 3.15 L Hgb 9.9 L Hct 31.9 L MCV 101.3 H Neut % (Auto) 90.6 H Lymph % (Auto) 7.5 L Lymph # (Auto) 0.44 L [place] # (Auto) 0.08 L Absolute Neutrophils ABG Methemoglobin VBG Base Excess Carboxyhemoglobin Total Hemoglobin BUN Glucose 122 H Calcium 8.2 L Lactate Dehydrogenase 409 H Albumin 2.8 L Globulin Albumin/Globulin Ratio 0.8 L Procalcitonin 0.15 H Urine Protein Ur Squamous Epith Cells Amorphous Crystals Hyaline Casts Urine Mucus 11/23/20 11/23/20 11/23/20 17:17 17:17 17:17 RBC 3.11 L Hgb 9.9 L Hct 31.4 L MCV 101.0 H Neut % (Auto) 82.2 H Lymph % (Auto) 8.3 L Lymph # (Auto) 0.64 L [place] # (Auto) Absolute Neutrophils ABG Methemoglobin 0.3 L VBG Base Excess 4 H Carboxyhemoglobin 6.7 H Total Hemoglobin 10.0 L BUN Glucose Calcium Lactate Dehydrogenase Albumin Globulin Albumin/Globulin Ratio Procalcitonin 0.14 H Urine Protein Ur Squamous Epith Cells Amorphous Crystals Hyaline Casts Urine Mucus 11/23/20 17:17 RBC Hgb Hct MCV Neut % (Auto) Lymph % (Auto) Lymph # (Auto) [place] # (Auto) Absolute Neutrophils ABG Methemoglobin VBG Base Excess Carboxyhemoglobin Total Hemoglobin BUN 24 H Glucose 116 H Calcium Lactate Dehydrogenase Albumin 3.1 L Globulin 3.8 H Albumin/Globulin Ratio 0.8 L Procalcitonin Urine Protein Ur Squamous Epith Cells Amorphous Crystals Hyaline Casts Urine Mucus Meds: Medications Acetaminophen (Acetaminophen 325 Mg Tablet) 650 mg PO Q4-6HP PRN; Protocol PRN Reason: Per Pain Protocol/Fever > 101 Albuterol Sulfate (Albuterol Sulfate 200 Puff Inhaler) 1 - 2 puff INH Q4HP PRN PRN Reason: Shortness Of Breath Ascorbic Acid (Ascorbic Acid 500 Mg Tablet) 500 mg PO DAILY ON LICENSE OF [facility] Last Admin: 11/25/20 08:14 Dose: 500 mg Documented by: Bisacodyl (Bisacodyl 10 Mg Supp.Rect) 10 mg AR Q2-3DAYS PRN PRN Reason: Constipation Docusate Sodium (Docusate Sodium 100 Mg Capsule) 100 mg PO BID ON LICENSE OF [facility] Last Admin: 11/25/20 08:14 Dose: 100 mg Documented by: Ferrous Sulfate (Ferrous Sulfate 325 Mg Tablet) 325 mg PO QDAY ON LICENSE OF [facility] Last Admin: 11/25/20 08:16 Dose: 325 mg Documented by: Guaifenesin/Codeine Phosphate (Guaifenesin/Codeine 10 Ml Udc) 10 ml PO Q4HP PRN PRN Reason: Cough Heparin Sodium (Porcine) (Heparin 5,000 Unit/Ml Vial) 5,000 unit SQ Q12 ON LICENSE OF [facility] Last Admin: 11/25/20 08:14 Dose: 5,000 unit Documented by: Azithromycin 500 mg/ Dextrose 250 mls @ 250 mls/hr IV Q24H ON LICENSE OF [facility]; Protocol Stop: 11/25/20 23:59 Last Admin: 11/25/20 09:01 Dose: 100 mls/hr Documented by: Potassium Chloride 40 meq/ (Dextrose) 520 mls @ 130 mls/hr IV UD PRN PRN Reason: K+ = or < 3.5 Acetaminophen (Ofirmev) 650 mg in 65 mls @ 130 mls/hr IV Q6HP PRN; Protocol PRN Reason: Per Pain Protocol/Fever > 101 Magnesium Sulfate (Magnesium Sulfate) 2 gm in 50 mls @ 50 mls/hr IV UD PRN PRN Reason: MG = or < 1.7 Sodium Chloride (Sodium Chloride 0.9%) 1,000 mls @ 50 mls/hr IV .Q20H ON LICENSE OF [facility] Stop: 11/26/20 08:56 Last Admin: 11/24/20 16:36 Dose: 50 mls/hr Documented by: Ceftriaxone Sodium 2 gm/ (Dextrose) 50 mls @ 100 mls/hr IV Q24H ON LICENSE OF [facility]; Protocol Last Admin: 11/25/20 08:14 Dose: 100 mls/hr Documented by: Iron Carb/Multivit/Research Assistant Member/Folic Acid (Multivit,Ther Iron,Ca,Fa & Min 1 Tablet) 1 tab PO DAILY ON LICENSE OF [facility] Last Admin: 11/25/20 08:14 Dose: 1 tab Documented by: Melatonin (Melatonin 3 Mg Tablet) 3 mg PO HSP PRN PRN Reason: Insomnia Ondansetron HCl (Ondansetron 4 Mg Odt Tablet) 4 mg SL Q4-6HP PRN; Protocol PRN Reason: Nausea And Vomiting Ondansetron HCl (Ondansetron 4 Mg/2 Ml Vial) 4 mg IV Q4-6HP PRN; Protocol PRN Reason: Nausea And Vomiting Polyethylene Glycol (Polyethylene Glycol 3350 17 Gm Packet) 17 gm PO DAILYP PRN PRN Reason: Constipation Potassium Chloride (Potassium Chloride 20 Meq Packet) 40 meq PO DAILYP PRN PRN Reason: K+ < 3.5 Potassium/Phosphorus/Sodium (Neutra Phos 1 Packet) 2 packet PO DAILY PRN PRN Reason: PHOS <2.5 Senna/Docusate Sodium (Sennosides/Docusate Sodium 1 Tab Tablet) 1 tab PO HS ON LICENSE OF [facility] Last Admin: 11/24/20 21:40 Dose: Not Given Documented by: Sodium Chloride (0.9 % Sodium Chloride 10 Ml Syringe) 10 ml IV Q8 ON LICENSE OF [facility] Last Admin: 11/25/20 04:59 Dose: Not Given Documented by: ABG Interpretation ABG results: 11/23/20 17:17 ABG Methemoglobin 0.3 L VBG pH 7.43 VBG pCO2 44.6 VBG pO2 41.1 VBG HCO3 28.9 VBG Total CO2 30.3 VBG O2 Saturation 67.6 VBG Base Excess 4 H A/P Narrative A/P Narrative: * Acute hypoxic respiratory failure- Multifocal bilateral infiltrates consistent with viral pneumonia. On 5 L oxygen * Multifocal pneumonia likely community-acquired. Covid negative. DC remdesivir dexamethasone. Continue antibiotic coverage. * Protein calorie malnutrition/weakness with BMI 18-continue dietary interventions * Full code * Prophylaxis Heparin Plan * Continue supplemental oxygen and wean as tolerated * DC'd remdesivir/dexamethasone and continue antibiotics * PT OT nutrition support * Thrombosis prophylaxis * Discharge planning per case management Time Spent With Patient Time: Total time spent is greater than 50% in coordination of care (as documented) at patient's floor/unit and/or counseling patient: QUALITY VTE Deep Vein Thrombosis/Pulmonary Embolism Present on Admission: No
[2020-11-25] MEDS: 0.9 % SODIUM CHLORIDE 1,000 ML IV SCH (17:22)
[2020-11-25] MEDS: SENNOSIDES/DOCUSATE SODIUM 1 TAB TABLET PO SCH (21:40)
[2020-11-26] MEDS: 0.9 % SODIUM CHLORIDE 10 ML SYRINGE IV SCH ×3 (05:34→20:27)
[2020-11-26 06:29] LABS: Basophils # (Auto) 0.01 K/mcL (0.00-0.20); Basophils % (Auto) 0.1 % (0.0-2.0); Eosinophils # (Auto) 0.03 K/mcL (0.00-0.70); Eosinophils % (Auto) 0.3 % (0.0-7.0); Hematocrit 32.4 % (36.0-48.0); Hemoglobin 10.1 g/dL (12.0-15.0); Lymphocytes # (Auto) 0.72 K/mcL (1.50-4.80); Lymphocytes % (Auto) 7.4 % (15.0-49.0); Mean Cell Volume 100.9 fL (80.0-100.0); Mean Corpuscular HGB Conc 31.2 g/dL (31.0-36.0); Mean Platelet Volume 9.8 fL (7.4-10.4); Monocytes # (Auto) 0.47 K/mcL (0.10-0.90); Monocytes % (Auto) 4.9 % (1.0-12.0); Neutrophils % (Auto) 87.3 % (38.0-78.0); Platelet Count 355 K/mcL (140-440); RBC 3.21 M/mcL (4.00-5.20); Red Cell Distribution Width 14.4 % (11.5-14.5); WBC 9.7 K/mcL (4.5-11.0)
[2020-11-26 06:55] LABS: ALT/SGPT < 5 U/L (<40); AST/SGOT 22 U/L (<32); Albumin 2.6 gm/dL (3.2-5.2); Albumin/Globulin Ratio 0.8 (1.0-2.3); Alkaline Phosphatase 43 U/L (39-117); Bilirubin,Direct < 0.2 mg/dL (0-0.3); Bilirubin,Total < 0.2 mg/dL (0.1-1.0); Blood Urea Nitrogen 16 mg/dL (8-23); Calcium 8.2 mg/dL (8.6-10.4); Carbon Dioxide 29 mmol/L (22-30); Chloride 106 mmol/L (96-108); Globulin 3.2 gm/dL (2.2-3.7); Glomerular Filtration Rate 85; Glucose 80 mg/dL (70-105); Lactate Dehydrogenase 350 U/L (135-225); Phosphorous 2.5 mg/dL (2.5-4.5); Triglycerides 114 mg/dL (<150)
[2020-11-26] MEDS: HEPARIN 5,000 UNIT/ML VIAL SQ SCH ×2 (08:42→20:27)
[2020-11-26] MEDS: FERROUS SULFATE 325 MG TABLET PO SCH (08:42)
[2020-11-26] MEDS: cefTRIAXone 2 GM in DEXTROSE 5% IN WATER 50 ML IV SCH (08:42)
[2020-11-26] MEDS: ASCORBIC ACID 500 MG TABLET PO SCH (08:42)
[2020-11-26] MEDS: MULTIVIT,THER IRON,CA,FA & MIN 1 TABLET PO SCH (08:42)
[2020-11-26] MEDS: DOCUSATE SODIUM 100 MG CAPSULE PO SCH ×2 (08:42→20:27)
[2020-11-26] MEDS ORDERED: NEUTRA PHOS 1 PACKET PO PRN (12:32)
[2020-11-26] MEDS ORDERED: ONDANSETRON 4 MG/2 ML VIAL IV PRN (12:32)
[2020-11-26] MEDS ORDERED: POTASSIUM CHLORIDE 20 MEQ PACKET PO PRN (12:32)
[2020-11-26] MEDS ORDERED: guaiFENesin/CODEINE 10 ML UDC PO PRN (12:32)
[2020-11-26] MEDS ORDERED: ONDANSETRON 4 MG ODT TABLET SL PRN (12:32)
[2020-11-26] MEDS ORDERED: ALBUTEROL SULFATE 200 PUFF INHALER INH PRN (12:32)
[2020-11-26] MEDS ORDERED: BISACODYL 10 MG SUPP.RECT PR PRN (12:32)
[2020-11-26] MEDS ORDERED: MELATONIN 3 MG TABLET PO PRN (12:32)
[2020-11-26] MEDS ORDERED: POTASSIUM CHLORIDE 40 MEQ in DEXTROSE 5% IN WATER 500 ML IV PRN (12:32)
[2020-11-26] MEDS ORDERED: ACETAMINOPHEN 325 MG TABLET PO PRN (12:32)
[2020-11-26] MEDS ORDERED: MAGNESIUM SULFATE 2 GM/50 ML BAG IV PRN (12:32)
[2020-11-26] MEDS ORDERED: POLYETHYLENE GLYCOL 3350 17 GM PACKET PO PRN (12:32)
[2020-11-26] MEDS ORDERED: ACETAMINOPHEN 650 MG/65 ML BAG IV PRN (12:32)
--- NOTE | 2020-11-26 13:45 | Internal Med Progress Note ---
SUBJECTIVE Subjective Patient information: Note initiated : 11/26/20 at 1:42 pm Service Date, if different from initiated Date: [] Patient: Mouna Jorgensen 80 y/o F admitted on 11/23/20 for covid symptoms, hypoxia. Chief Complaint: [] Interval history: History of present illness: Ms. Jorgensen is a 80 year old F with no significant prior medical history who presents to the ER with 3 weeks onset of worsening shortness of breath, malaise, weakness and loss of appetite. Patient had a short of Covid vaccine 3 weeks ago and following that she has noticed increasing malaise and a gradual decline in general functionality. 2 weeks prior to presentation started experiencing exertional shortness of breath which has progressed very and even minimal activity would lead to dyspnea. She was evaluated at primary care physician's office with a CT chest that showed multifocal chest infiltrates. She was directed to the ER for further evaluation Initial work-up was consistent with hypoxia spray failure requiring 6 L oxygen. Patient was started on remdesivir/dexamethasone after Covid test was ordered. Hospitalist service was consulted At the time of my evaluation patient is alert and was able to answer most the questions. She denies hemoptysis/diarrhea, dysuria endorses to myalgia weakness and generalized malaise and loss of appetite. She denies dysuria, diarrhea, headache, neck stiffness or photophobia. 11/24-patient seen in room this morning. No overnight events. Looks a lot better. Denies fever chills nausea vomiting. No additional concerns per nursing staff. Down from 6 to 3 L oxygen this morning. No overnight telemetry events. Afebrile. On remdesivir/dexamethasone. Covid PCR pending. Continue contact precaution. 11/25-patient doing well. Improved shortness of breath. T-max 99.4. White count 10.4 Covid negative. Remdesivir discontinued. Continuing antibiotics for pneumonia. On 5 L oxygen. 11/26-patient required up to 8 L oxygen yesterday however down to 2.5 this morning. Feels a lot better. On antibiotic coverage. Continue therapies. White count 9.7, echocardiogram results pending. Continuing dietary intervention. Transfer to medical floor today. Constitutional Vitals: Vital Signs Temp Pulse Resp BP Pulse Ox 97.6 F 43 L 22 135/54 96 11/26/20 04:01 11/26/20 13:00 11/26/20 13:00 11/26/20 13:00 11/26/20 13:00 Period Temp Pulse Resp BP Sys/Landeros Pulse Ox Last 24 Hr 97.6 F-98.6 F 42-55 16-22 102-135/50-58 91-100 Intake and Output 11/25/20 11/26/20 11/26/20 21:59 05:59 13:59 Intake Total 540 Output Total 150 150 50 Balance 390 -150 -50 Weight 44.815 kg alert oriented Nonlabored breathing Telemetry no events On 2.5 L oxygen Intake & Output: Intake & Output 11/25/20 11/26/20 11/26/20 21:59 05:59 13:59 Intake Total 540 Output Total 150 150 50 Balance 390 -150 -50 Weight 44.815 kg Intake: IV 300 Zithromax 500 mg In Dextrose 5% 250 in Water 250 ml @ 250 mls/hr IV Q24H PAT Rx#:[id number] Rocephin 2 gm In Dextrose 5% in 50 Water 50 ml @ 100 mls/hr IV Q24H PAT Rx#:[id number] Oral 240 Output: Void Amount 150 150 50 Other: Meal Lunch Percent of Meal Consumed 0% Urine Appearance Clear Clear Urine Color Dark Yellow Dark Yellow Light [place] Urine Odor Strong Strong Normal OBJ DATA Labs CBC & Chem 7: 11/26/20 05:12 11/26/20 05:12 Labs: Abnormal Lab Results 11/26/20 11/26/20 11/25/20 05:12 05:12 05:04 RBC 3.21 L Hgb 10.1 L Hct 32.4 L MCV 100.9 H Neut % (Auto) 87.3 H Lymph % (Auto) 7.4 L Lymph # (Auto) 0.72 L [place] # (Auto) Absolute Neutrophils 8.44 H ABG Methemoglobin VBG Base Excess Carboxyhemoglobin Total Hemoglobin Anion Gap 4.0 L BUN Glucose Calcium 8.2 L Lactate Dehydrogenase 350 H 381 H Total Protein 5.8 L Albumin 2.6 L 3.0 L Globulin Albumin/Globulin Ratio 0.8 L Procalcitonin Urine Protein Ur Squamous Epith Cells Amorphous Crystals Hyaline Casts Urine Mucus 11/25/20 11/24/20 11/24/20 05:04 06:00 05:32 RBC 2.92 L Hgb 9.3 L Hct 29.7 L MCV 101.7 H Neut % (Auto) 85.1 H Lymph % (Auto) 8.8 L Lymph # (Auto) 0.91 L [place] # (Auto) Absolute Neutrophils 8.83 H ABG Methemoglobin VBG Base Excess Carboxyhemoglobin Total Hemoglobin Anion Gap BUN Glucose Calcium Lactate Dehydrogenase Total Protein Albumin Globulin Albumin/Globulin Ratio Procalcitonin 0.15 H Urine Protein 30 mg/dl A Ur Squamous Epith Cells 5 H Amorphous Crystals Few A Hyaline Casts 4 H Urine Mucus Many A 11/24/20 11/24/20 11/23/20 05:31 05:31 17:17 RBC 3.15 L Hgb 9.9 L Hct 31.9 L MCV 101.3 H Neut % (Auto) 90.6 H Lymph % (Auto) 7.5 L Lymph # (Auto) 0.44 L [place] # (Auto) 0.08 L Absolute Neutrophils ABG Methemoglobin 0.3 L VBG Base Excess 4 H Carboxyhemoglobin 6.7 H Total Hemoglobin 10.0 L Anion Gap BUN Glucose 122 H Calcium 8.2 L Lactate Dehydrogenase 409 H Total Protein Albumin 2.8 L Globulin Albumin/Globulin Ratio 0.8 L Procalcitonin Urine Protein Ur Squamous Epith Cells Amorphous Crystals Hyaline Casts Urine Mucus 11/23/20 11/23/20 11/23/20 17:17 17:17 17:17 RBC 3.11 L Hgb 9.9 L Hct 31.4 L MCV 101.0 H Neut % (Auto) 82.2 H Lymph % (Auto) 8.3 L Lymph # (Auto) 0.64 L [place] # (Auto) Absolute Neutrophils ABG Methemoglobin VBG Base Excess Carboxyhemoglobin Total Hemoglobin Anion Gap BUN 24 H Glucose 116 H Calcium Lactate Dehydrogenase Total Protein Albumin 3.1 L Globulin 3.8 H Albumin/Globulin Ratio 0.8 L Procalcitonin 0.14 H Urine Protein Ur Squamous Epith Cells Amorphous Crystals Hyaline Casts Urine Mucus Meds: Medications Acetaminophen (Acetaminophen 325 Mg Tablet) 650 mg PO Q4-6HP PRN; Protocol PRN Reason: Per Pain Protocol/Fever > 101 Albuterol Sulfate (Albuterol Sulfate 200 Puff Inhaler) 1 - 2 puff INH Q4HP PRN PRN Reason: Shortness Of Breath Ascorbic Acid (Ascorbic Acid 500 Mg Tablet) 500 mg PO DAILY [facility] Bisacodyl (Bisacodyl 10 Mg Supp.Rect) 10 mg MS Q2-3DAYS PRN PRN Reason: Constipation Docusate Sodium (Docusate Sodium 100 Mg Capsule) 100 mg PO BID [facility] Ferrous Sulfate (Ferrous Sulfate 325 Mg Tablet) 325 mg PO QDAY [facility] Guaifenesin/Codeine Phosphate (Guaifenesin/Codeine 10 Ml Udc) 10 ml PO Q4HP PRN PRN Reason: Cough Heparin Sodium (Porcine) (Heparin 5,000 Unit/Ml Vial) 5,000 unit SQ Q12 PAT Ceftriaxone Sodium 2 gm/ (Dextrose) 50 mls @ 100 mls/hr IV Q24H PAT; Protocol Acetaminophen (Ofirmev) 650 mg in 65 mls @ 130 mls/hr IV Q6HP PRN; Protocol PRN Reason: Per Pain Protocol/Fever > 101 Magnesium Sulfate (Magnesium Sulfate) 2 gm in 50 mls @ 50 mls/hr IV UD PRN PRN Reason: MG = or < 1.7 Potassium Chloride 40 meq/ (Dextrose) 520 mls @ 130 mls/hr IV UD PRN PRN Reason: K+ = or < 3.5 Iron Carb/Multivit/Sprinkler Fitter Apprentice/Folic Acid (Multivit,Ther Iron,Ca,Fa & Min 1 Tablet) 1 tab PO DAILY [facility] Melatonin (Melatonin 3 Mg Tablet) 3 mg PO HSP PRN PRN Reason: Insomnia Ondansetron HCl (Ondansetron 4 Mg Odt Tablet) 4 mg SL Q4-6HP PRN; Protocol PRN Reason: Nausea And Vomiting Ondansetron HCl (Ondansetron 4 Mg/2 Ml Vial) 4 mg IV Q4-6HP PRN; Protocol PRN Reason: Nausea And Vomiting Polyethylene Glycol (Polyethylene Glycol 3350 17 Gm Packet) 17 gm PO DAILYP PRN PRN Reason: Constipation Potassium Chloride (Potassium Chloride 20 Meq Packet) 40 meq PO DAILYP PRN PRN Reason: K+ < 3.5 Potassium/Phosphorus/Sodium (Neutra Phos 1 Packet) 2 packet PO DAILY PRN PRN Reason: PHOS <2.5 Senna/Docusate Sodium (Sennosides/Docusate Sodium 1 Tab Tablet) 1 tab PO HS [facility] Sodium Chloride (0.9 % Sodium Chloride 10 Ml Syringe) 10 ml IV Q8 PAT ABG Interpretation ABG results: 11/23/20 17:17 ABG Methemoglobin 0.3 L VBG pH 7.43 VBG pCO2 44.6 VBG pO2 41.1 VBG HCO3 28.9 VBG Total CO2 30.3 VBG O2 Saturation 67.6 VBG Base Excess 4 H A/P Narrative A/P Narrative: * Acute hypoxic respiratory failure-secondary to multifoca pneumonia. Weaning oxygen as tolerated. Currently on 2.5 L nasal cannula * Multifocal pneumonia likely community-acquired. Covid negative. Continuing antibiotic coverage. Clinically improving. * Protein calorie malnutrition/weakness with BMI 18-continue dietary interventions * Full code * Prophylaxis Heparin Plan * Wean oxygen as tolerated * Antibiotic coverage * PT OT nutrition support * Thrombosis prophylaxis * Discharge planning per case management likely in 24 to 48 hours pending clinical improvement * Transfer to medical floor Time Spent With Patient Time: Total time spent is greater than 50% in coordination of care (as documented) at patient's floor/unit and/or counseling patient: QUALITY VTE Deep Vein Thrombosis/Pulmonary Embolism Present on Admission: No
[2020-11-26] MEDS: SENNOSIDES/DOCUSATE SODIUM 1 TAB TABLET PO SCH (20:27)
[2020-11-27] MEDS: 0.9 % SODIUM CHLORIDE 10 ML SYRINGE IV SCH ×3 (04:43→20:00)
[2020-11-27 07:03] LABS: Basophils # (Auto) 0.02 K/mcL (0.00-0.20); Basophils % (Auto) 0.2 % (0.0-2.0); Eosinophils # (Auto) 0.46 K/mcL (0.00-0.70); Eosinophils % (Auto) 5.7 % (0.0-7.0); Hematocrit 33.1 % (36.0-48.0); Hemoglobin 10.4 g/dL (12.0-15.0); Lymphocytes # (Auto) 0.82 K/mcL (1.50-4.80); Lymphocytes % (Auto) 10.1 % (15.0-49.0); Mean Cell Volume 100.6 fL (80.0-100.0); Mean Corpuscular HGB Conc 31.4 g/dL (31.0-36.0); Monocytes # (Auto) 0.42 K/mcL (0.10-0.90); Monocytes % (Auto) 5.2 % (1.0-12.0); Neutrophils % (Auto) 78.8 % (38.0-78.0); Platelet Count 356 K/mcL (140-440); RBC 3.29 M/mcL (4.00-5.20); Red Cell Distribution Width 14.3 % (11.5-14.5); WBC 8.1 K/mcL (4.5-11.0)
[2020-11-27 07:44] LABS: ALT/SGPT 5 U/L (<40); AST/SGOT 27 U/L (<32); Albumin 2.8 gm/dL (3.2-5.2); Albumin/Globulin Ratio 0.8 (1.0-2.3); Alkaline Phosphatase 51 U/L (39-117); Bilirubin,Direct < 0.2 mg/dL (0-0.3); Bilirubin,Total < 0.2 mg/dL (0.1-1.0); Blood Urea Nitrogen 12 mg/dL (8-23); Calcium 8.3 mg/dL (8.6-10.4); Carbon Dioxide 28 mmol/L (22-30); Chloride 103 mmol/L (96-108); Globulin 3.3 gm/dL (2.2-3.7); Glomerular Filtration Rate 85; Glucose 70 mg/dL (70-105); Lactate Dehydrogenase 362 U/L (135-225); Phosphorous 1.8 mg/dL (2.5-4.5); Triglycerides 136 mg/dL (<150); Uric Acid 2.7 mg/dL (2.5-8.0)
[2020-11-27] MEDS: DOCUSATE SODIUM 100 MG CAPSULE PO SCH ×2 (09:01→19:59)
[2020-11-27] MEDS: MULTIVIT,THER IRON,CA,FA & MIN 1 TABLET PO SCH (09:02)
[2020-11-27] MEDS: FERROUS SULFATE 325 MG TABLET PO SCH (09:02)
[2020-11-27] MEDS: ASCORBIC ACID 500 MG TABLET PO SCH (09:02)
[2020-11-27] MEDS: HEPARIN 5,000 UNIT/ML VIAL SQ SCH ×2 (09:03→19:59)
[2020-11-27] MEDS: cefTRIAXone 2 GM in DEXTROSE 5% IN WATER 50 ML IV SCH (09:05)
--- NOTE | 2020-11-27 11:23 | Internal Med Progress Note ---
SUBJECTIVE Subjective Patient information: Note initiated : 11/27/20 at 11:17 am Service Date, if different from initiated Date: [] Patient: Mouna Jorgensen 80 y/o F admitted on 11/23/20 for covid symptoms, hypoxia. Chief Complaint: [] Interval history: History of present illness: Ms. Jorgensen is a 80 year old F with no significant prior medical history who presents to the ER with 3 weeks onset of worsening shortness of breath, malaise, weakness and loss of appetite. Patient had a short of Covid vaccine 3 weeks ago and following that she has noticed increasing malaise and a gradual decline in general functionality. 2 weeks prior to presentation started experiencing exertional shortness of breath which has progressed very and even minimal activity would lead to dyspnea. She was evaluated at primary care physician's office with a CT chest that showed multifocal chest infiltrates. She was directed to the ER for further evaluation Initial work-up was consistent with hypoxia spray failure requiring 6 L oxygen. Patient was started on remdesivir/dexamethasone after Covid test was ordered. Hospitalist service was consulted At the time of my evaluation patient is alert and was able to answer most the questions. She denies hemoptysis/diarrhea, dysuria endorses to myalgia weakness and generalized malaise and loss of appetite. She denies dysuria, diarrhea, headache, neck stiffness or photophobia. 11/24-patient seen in room this morning. No overnight events. Looks a lot better. Denies fever chills nausea vomiting. No additional concerns per nursing staff. Down from 6 to 3 L oxygen this morning. No overnight telemetry events. Afebrile. On remdesivir/dexamethasone. Covid PCR pending. Continue contact precaution. 11/25-patient doing well. Improved shortness of breath. T-max 99.4. White count 10.4 Covid negative. Remdesivir discontinued. Continuing antibiotics for pneumonia. On 5 L oxygen. 11/26-patient required up to 8 L oxygen yesterday however down to 2.5 this morning. Feels a lot better. On antibiotic coverage. Continue therapies. White count 9.7, echocardiogram results pending. Continuing dietary intervention. Transfer to medical floor today. 11/27-patient profoundly hypoxic requiring 9 L oxygen and desaturates with minimal exertion or even conversation. Start diuresis. Await echocardiogram. Continuing antibiotic coverage including azithromycin/Rocephin. Constitutional Vitals: Vital Signs Temp Pulse Resp BP Pulse Ox 98.4 F 55 L 14 139/59 97 11/27/20 07:25 11/27/20 07:25 11/27/20 07:25 11/27/20 07:25 11/27/20 07:25 Period Temp Pulse Resp BP Sys/Landeros Pulse Ox Last 24 Hr 97.6 F-98.4 F 43-95 14-22 122-150/54-61 84-100 Intake and Output 11/26/20 11/27/20 11/27/20 21:59 05:59 13:59 Intake Total 1000 375 Output Total 50 450 450 Balance 950 -75 -450 Weight 44.225 kg Alert oriented, Labored breathing on 9 L oxygen Anxious No lymphedema Intake & Output: Intake & Output 11/26/20 11/27/20 11/27/20 21:59 05:59 13:59 Intake Total 1000 375 Output Total 50 450 450 Balance 950 -75 -450 Weight 44.225 kg Intake: IV 1000 Sodium Chloride 0.9% 1,000 ml @ 1000 50 mls/hr IV .Q20H [facility] Rx#: [id number] Oral 0 375 Output: Urine Catheter Amount 150 Void Amount 50 300 Urine/Stool Mix 450 Other: Urine Appearance Clear Urine Color Bright Yellow Pale Urine Odor Normal Stool Size Large Stool Color Brown Stool Consistency Liquid OBJ DATA Labs CBC & Chem 7: 11/27/20 05:32 11/27/20 05:32 Labs: Abnormal Lab Results 11/27/20 11/27/20 11/26/20 05:32 05:32 05:12 RBC 3.29 L Hgb 10.4 L Hct 33.1 L MCV 100.6 H Neut % (Auto) 78.8 H Lymph % (Auto) 10.1 L Lymph # (Auto) 0.82 L Absolute Neutrophils Anion Gap 7.0 L 4.0 L Calcium 8.3 L 8.2 L Phosphorus 1.8 L Lactate Dehydrogenase 362 H 350 H Total Protein 5.8 L Albumin 2.8 L 2.6 L Albumin/Globulin Ratio 0.8 L 0.8 L 11/26/20 11/25/20 11/25/20 05:12 05:04 05:04 RBC 3.21 L 2.92 L Hgb 10.1 L 9.3 L Hct 32.4 L 29.7 L MCV 100.9 H 101.7 H Neut % (Auto) 87.3 H 85.1 H Lymph % (Auto) 7.4 L 8.8 L Lymph # (Auto) 0.72 L 0.91 L Absolute Neutrophils 8.44 H 8.83 H Anion Gap Calcium Phosphorus Lactate Dehydrogenase 381 H Total Protein Albumin 3.0 L Albumin/Globulin Ratio Meds: Medications Acetaminophen (Acetaminophen 325 Mg Tablet) 650 mg PO Q4-6HP PRN; Protocol PRN Reason: Per Pain Protocol/Fever > 101 Albuterol Sulfate (Albuterol Sulfate 200 Puff Inhaler) 1 - 2 puff INH Q4HP PRN PRN Reason: Shortness Of Breath Ascorbic Acid (Ascorbic Acid 500 Mg Tablet) 500 mg PO DAILY [facility] Last Admin: 11/27/20 09:02 Dose: 500 mg Documented by: Bisacodyl (Bisacodyl 10 Mg Supp.Rect) 10 mg [place] Q2-3DAYS PRN PRN Reason: Constipation Docusate Sodium (Docusate Sodium 100 Mg Capsule) 100 mg PO BID [facility] Last Admin: 11/27/20 09:01 Dose: 100 mg Documented by: Ferrous Sulfate (Ferrous Sulfate 325 Mg Tablet) 325 mg PO QDAY [facility] Last Admin: 11/27/20 09:02 Dose: 325 mg Documented by: Guaifenesin/Codeine Phosphate (Guaifenesin/Codeine 10 Ml Udc) 10 ml PO Q4HP PRN PRN Reason: Cough Heparin Sodium (Porcine) (Heparin 5,000 Unit/Ml Vial) 5,000 unit SQ Q12 [facility] Last Admin: 11/27/20 09:03 Dose: 5,000 unit Documented by: Ceftriaxone Sodium 2 gm/ (Dextrose) 50 mls @ 100 mls/hr IV Q24H [facility]; Protocol Last Admin: 11/27/20 09:05 Dose: 100 mls/hr Documented by: Acetaminophen (Ofirmev) 650 mg in 65 mls @ 130 mls/hr IV Q6HP PRN; Protocol PRN Reason: Per Pain Protocol/Fever > 101 Magnesium Sulfate (Magnesium Sulfate) 2 gm in 50 mls @ 50 mls/hr IV UD PRN PRN Reason: MG = or < 1.7 Potassium Chloride 40 meq/ (Dextrose) 520 mls @ 130 mls/hr IV UD PRN PRN Reason: K+ = or < 3.5 Iron Carb/Multivit/Tower Helper/Folic Acid (Multivit,Ther Iron,Ca,Fa & Min 1 Tablet) 1 tab PO DAILY [facility] Last Admin: 11/27/20 09:02 Dose: 1 tab Documented by: Melatonin (Melatonin 3 Mg Tablet) 3 mg PO HSP PRN PRN Reason: Insomnia Ondansetron HCl (Ondansetron 4 Mg Odt Tablet) 4 mg SL Q4-6HP PRN; Protocol PRN Reason: Nausea And Vomiting Ondansetron HCl (Ondansetron 4 Mg/2 Ml Vial) 4 mg IV Q4-6HP PRN; Protocol PRN Reason: Nausea And Vomiting Polyethylene Glycol (Polyethylene Glycol 3350 17 Gm Packet) 17 gm PO DAILYP PRN PRN Reason: Constipation Potassium Chloride (Potassium Chloride 20 Meq Packet) 40 meq PO DAILYP PRN PRN Reason: K+ < 3.5 Potassium/Phosphorus/Sodium (Neutra Phos 1 Packet) 2 packet PO DAILY PRN PRN Reason: PHOS <2.5 Senna/Docusate Sodium (Sennosides/Docusate Sodium 1 Tab Tablet) 1 tab PO HS [facility] Last Admin: 11/26/20 20:27 Dose: Not Given Documented by: Sodium Chloride (0.9 % Sodium Chloride 10 Ml Syringe) 10 ml IV Q8 [facility] Last Admin: 11/27/20 04:43 Dose: Not Given Documented by: ABG Interpretation ABG results: 11/23/20 17:17 ABG Methemoglobin 0.3 L VBG pH 7.43 VBG pCO2 44.6 VBG pO2 41.1 VBG HCO3 28.9 VBG Total CO2 30.3 VBG O2 Saturation 67.6 VBG Base Excess 4 H A/P Narrative A/P Narrative: * Acute hypoxic respiratory failure-currently on 9 L oxygen. Large AA gradient. Start gradual diuresis, transition to noninvasive ventilation if indicated * Multifocal pneumonia likely community-acquired. Covid negative. Continuing antibiotic coverage. Radiological deterioration noted * Protein calorie malnutrition/weakness with BMI 18-continue dietary interventions * Full code * Prophylaxis Heparin Plan * Continue supplemental oxygen and start noninvasive ventilation if indicated * Continue antibiotic coverage * PT OT nutrition support * Thrombosis prophylaxi * Hold discharge until clinically stable Time Spent With Patient Time: Total time spent is greater than 50% in coordination of care (as jason orozco) at patient's floor/unit and/or counseling patient: QUALITY VTE Deep Vein Thrombosis/Pulmonary Embolism Present on Admission: No
[2020-11-27] MEDS: SENNOSIDES/DOCUSATE SODIUM 1 TAB TABLET PO SCH (19:59)
[2020-11-28] MEDS: 0.9 % SODIUM CHLORIDE 10 ML SYRINGE IV SCH ×3 (05:21→22:32)
[2020-11-28 07:43] LABS: Basophils # (Auto) 0.02 K/mcL (0.00-0.20); Basophils % (Auto) 0.3 % (0.0-2.0); Eosinophils # (Auto) 0.45 K/mcL (0.00-0.70); Hematocrit 31.8 % (36.0-48.0); Hemoglobin 10.1 g/dL (12.0-15.0); Lymphocytes # (Auto) 0.72 K/mcL (1.50-4.80); Lymphocytes % (Auto) 9.5 % (15.0-49.0); Mean Cell Volume 99.1 fL (80.0-100.0); Mean Corpuscular HGB Conc 31.8 g/dL (31.0-36.0); Mean Platelet Volume 9.9 fL (7.4-10.4); Monocytes # (Auto) 0.34 K/mcL (0.10-0.90); Monocytes % (Auto) 4.5 % (1.0-12.0); Neutrophils % (Auto) 79.7 % (38.0-78.0); Platelet Count 349 K/mcL (140-440); RBC 3.21 M/mcL (4.00-5.20); Red Cell Distribution Width 14.5 % (11.5-14.5); WBC 7.5 K/mcL (4.5-11.0)
[2020-11-28 08:02] LABS: ALT/SGPT < 5 U/L (<40); AST/SGOT 26 U/L (<32); Albumin 2.7 gm/dL (3.2-5.2); Albumin/Globulin Ratio 0.9 (1.0-2.3); Alkaline Phosphatase 52 U/L (39-117); Bilirubin,Direct < 0.2 mg/dL (0-0.3); Bilirubin,Total 0.2 mg/dL (0.1-1.0); Blood Urea Nitrogen 10 mg/dL (8-23); Calcium 8.3 mg/dL (8.6-10.4); Carbon Dioxide 31 mmol/L (22-30); Chloride 102 mmol/L (96-108); Globulin 3.1 gm/dL (2.2-3.7); Glomerular Filtration Rate 85; Glucose 82 mg/dL (70-105); Lactate Dehydrogenase 344 U/L (135-225); Phosphorous 2.5 mg/dL (2.5-4.5); Triglycerides 95 mg/dL (<150); Uric Acid 2.6 mg/dL (2.5-8.0)
[2020-11-28] MEDS: MULTIVIT,THER IRON,CA,FA & MIN 1 TABLET PO SCH (08:42)
[2020-11-28] MEDS: DOCUSATE SODIUM 100 MG CAPSULE PO SCH ×2 (08:42→22:31)
[2020-11-28] MEDS: ASCORBIC ACID 500 MG TABLET PO SCH (08:42)
[2020-11-28] MEDS: HEPARIN 5,000 UNIT/ML VIAL SQ SCH ×2 (08:42→22:31)
[2020-11-28] MEDS: FERROUS SULFATE 325 MG TABLET PO SCH (08:43)
[2020-11-28] MEDS: cefTRIAXone 2 GM in DEXTROSE 5% IN WATER 50 ML IV SCH (08:43)
--- NOTE | 2020-11-28 14:40 | Internal Med Progress Note ---
SUBJECTIVE Subjective Patient information: Note initiated : 11/28/20 at 2:37 pm Service Date, if different from initiated Date: [] Patient: Mouna Jorgensen 80 y/o F admitted on 11/23/20 for covid symptoms, hypoxia. Chief Complaint: [] Interval history: History of present illness: Ms. Jorgensen is a 80 year old F with no significant prior medical history who presents to the ER with 3 weeks onset of worsening shortness of breath, malaise, weakness and loss of appetite. Patient had a short of Covid vaccine 3 weeks ago and following that she has noticed increasing malaise and a gradual decline in general functionality. 2 weeks prior to presentation started experiencing exertional shortness of breath which has progressed very and even minimal activity would lead to dyspnea. She was evaluated at primary care physician's office with a CT chest that showed multifocal chest infiltrates. She was directed to the ER for further evaluation Initial work-up was consistent with hypoxia spray failure requiring 6 L oxygen. Patient was started on remdesivir/dexamethasone after Covid test was ordered. Hospitalist service was consulted At the time of my evaluation patient is alert and was able to answer most the questions. She denies hemoptysis/diarrhea, dysuria endorses to myalgia weakness and generalized malaise and loss of appetite. She denies dysuria, diarrhea, headache, neck stiffness or photophobia. 11/24-patient seen in room this morning. No overnight events. Looks a lot better. Denies fever chills nausea vomiting. No additional concerns per nursing staff. Down from 6 to 3 L oxygen this morning. No overnight telemetry events. Afebrile. On remdesivir/dexamethasone. Covid PCR pending. Continue contact precaution. 11/25-patient doing well. Improved shortness of breath. T-max 99.4. White count 10.4 Covid negative. Remdesivir discontinued. Continuing antibiotics for pneumonia. On 5 L oxygen. 11/26-patient required up to 8 L oxygen yesterday however down to 2.5 this morning. Feels a lot better. On antibiotic coverage. Continue therapies. White count 9.7, echocardiogram results pending. Continuing dietary intervention. Transfer to medical floor today. 11/27-patient profoundly hypoxic requiring 9 L oxygen and desaturates with minimal exertion or even conversation. Start diuresis. Await echocardiogram. Continuing antibiotic coverage including azithromycin/Rocephin. 11/28-patient responding to treatment. Echocardiogram preserved EF 55%. Grade 2 diastolic dysfunction. Currently on 5 L oxygen. Dropped down to mid 50s on minimal exertion. Continue empiric antibiotic coverage. Continue therapies as tolerated. Continue gentle diuresis/interval imaging Constitutional Vitals: Vital Signs Temp Pulse Resp BP Pulse Ox 97.9 F 56 L 18 135/65 93 11/28/20 12:00 11/28/20 12:00 11/28/20 12:00 11/28/20 12:00 11/28/20 12:00 Period Temp Pulse Resp BP Sys/Landeros Pulse Ox Last 24 Hr 96.9 F-98.6 F 49-61 16-18 106-147/56-67 91-95 Intake and Output 11/28/20 11/28/20 11/28/20 05:59 13:59 21:59 Intake Total 150 1010 Output Total 470 300 Balance -320 710 Alert but anxious Nonlabored breathing On 5 L oxygen, minimally labored breathing Intake & Output: Intake & Output 11/28/20 11/28/20 11/28/20 05:59 13:59 21:59 Intake Total 150 1010 Output Total 470 300 Balance -320 710 Intake: IV 50 Rocephin 2 gm In Dextrose 5% in 50 Water 50 ml @ 100 mls/hr IV Q24H [facility] Rx#:[id number] Oral 150 960 Output: Void Amount 470 300 Other: Meal Lunch Percent of Meal Consumed 75% Feeding Ability Independent Urine Appearance Clear Urine Color Pale Stool Size Small Stool Color Brown Stool Consistency Soft # Bowel Movements 1 OBJ DATA Labs CBC & Chem 7: 11/28/20 05:22 11/28/20 05:21 Labs: Abnormal Lab Results 11/28/20 11/28/20 11/27/20 05:22 05:21 05:32 RBC 3.21 L Hgb 10.1 L Hct 31.8 L MCV Neut % (Auto) 79.7 H Lymph % (Auto) 9.5 L Lymph # (Auto) 0.72 L Absolute Neutrophils Carbon Dioxide 31 H Anion Gap 5.0 L 7.0 L Calcium 8.3 L 8.3 L Phosphorus 1.8 L Lactate Dehydrogenase 344 H 362 H Total Protein 5.8 L Albumin 2.7 L 2.8 L Albumin/Globulin Ratio 0.9 L 0.8 L 11/27/20 11/26/20 11/26/20 05:32 05:12 05:12 RBC 3.29 L 3.21 L Hgb 10.4 L 10.1 L Hct 33.1 L 32.4 L MCV 100.6 H 100.9 H Neut % (Auto) 78.8 H 87.3 H Lymph % (Auto) 10.1 L 7.4 L Lymph # (Auto) 0.82 L 0.72 L Absolute Neutrophils 8.44 H Carbon Dioxide Anion Gap 4.0 L Calcium 8.2 L Phosphorus Lactate Dehydrogenase 350 H Total Protein 5.8 L Albumin 2.6 L Albumin/Globulin Ratio 0.8 L Meds: Medications Acetaminophen (Acetaminophen 325 Mg Tablet) 650 mg PO Q4-6HP PRN; Protocol PRN Reason: Per Pain Protocol/Fever > 101 Albuterol Sulfate (Albuterol Sulfate 200 Puff Inhaler) 1 - 2 puff INH Q4HP PRN PRN Reason: Shortness Of Breath Ascorbic Acid (Ascorbic Acid 500 Mg Tablet) 500 mg PO DAILY [facility] Last Admin: 11/28/20 08:42 Dose: 500 mg Documented by: Bisacodyl (Bisacodyl 10 Mg Supp.Rect) 10 mg [place] Q2-3DAYS PRN PRN Reason: Constipation Docusate Sodium (Docusate Sodium 100 Mg Capsule) 100 mg PO BID [facility] Last Admin: 11/28/20 08:42 Dose: 100 mg Documented by: Ferrous Sulfate (Ferrous Sulfate 325 Mg Tablet) 325 mg PO QDAY [facility] Last Admin: 11/28/20 08:43 Dose: 325 mg Documented by: Guaifenesin/Codeine Phosphate (Guaifenesin/Codeine 10 Ml Udc) 10 ml PO Q4HP PRN PRN Reason: Cough Heparin Sodium (Porcine) (Heparin 5,000 Unit/Ml Vial) 5,000 unit SQ Q12 [facility] Last Admin: 11/28/20 08:42 Dose: 5,000 unit Documented by: Ceftriaxone Sodium 2 gm/ (Dextrose) 50 mls @ 100 mls/hr IV Q24H [facility]; Protocol Last Infusion: 11/28/20 09:15 Dose: Infused Documented by: Acetaminophen (Ofirmev) 650 mg in 65 mls @ 130 mls/hr IV Q6HP PRN; Protocol PRN Reason: Per Pain Protocol/Fever > 101 Magnesium Sulfate (Magnesium Sulfate) 2 gm in 50 mls @ 50 mls/hr IV UD PRN PRN Reason: MG = or < 1.7 Potassium Chloride 40 meq/ (Dextrose) 520 mls @ 130 mls/hr IV UD PRN PRN Reason: K+ = or < 3.5 Iron Carb/Multivit/Genes[place]/Folic Acid (Multivit,Ther Iron,Ca,Fa & Min 1 Tablet) 1 tab PO DAILY [facility] Last Admin: 11/28/20 08:42 Dose: 1 tab Documented by: Melatonin (Melatonin 3 Mg Tablet) 3 mg PO HSP PRN PRN Reason: Insomnia Ondansetron HCl (Ondansetron 4 Mg Odt Tablet) 4 mg SL Q4-6HP PRN; Protocol PRN Reason: Nausea And Vomiting Ondansetron HCl (Ondansetron 4 Mg/2 Ml Vial) 4 mg IV Q4-6HP PRN; Protocol PRN Reason: Nausea And Vomiting Polyethylene Glycol (Polyethylene Glycol 3350 17 Gm Packet) 17 gm PO DAILYP PRN PRN Reason: Constipation Potassium Chloride (Potassium Chloride 20 Meq Packet) 40 meq PO DAILYP PRN PRN Reason: K+ < 3.5 Potassium/Phosphorus/Sodium (Neutra Phos 1 Packet) 2 packet PO DAILY PRN PRN Reason: PHOS <2.5 Senna/Docusate Sodium (Sennosides/Docusate Sodium 1 Tab Tablet) 1 tab PO HS [facility] Last Admin: 11/27/20 19:59 Dose: Not Given Documented by: Sodium Chloride (0.9 % Sodium Chloride 10 Ml Syringe) 10 ml IV Q8 [facility] Last Admin: 11/28/20 13:33 Dose: 10 ml Documented by: ABG Interpretation ABG results: 11/23/20 17:17 ABG Methemoglobin 0.3 L VBG pH 7.43 VBG pCO2 44.6 VBG pO2 41.1 VBG HCO3 28.9 VBG Total CO2 30.3 VBG O2 Saturation 67.6 VBG Base Excess 4 H A/P Narrative A/P Narrative: * Acute hypoxic respiratory failure-weaning oxygen as tolerated. Currently on 5 L, large AA gradient. Continue gentle diuresis * Multifocal pneumonia likely community-acquired. Covid negative. Clinically improving on antibiotic coverage. * Protein calorie malnutrition/weakness with BMI 18-ongoing dietary interventions * Full code * Prophylaxis Heparin Plan * Wean oxygen as tolerated * Continue antibiotic coverage * Gentle diuresis * Interval chest imaging * PT OT nutrition support * Thrombosis prophylaxis Time Spent With Patient Time: Total time spent is greater than 50% in coordination of care (as documented) at patient's floor/unit and/or counseling patient: QUALITY VTE Deep Vein Thrombosis/Pulmonary Embolism Present on Admission: No
[2020-11-28] MEDS: FUROSEMIDE 20 MG TABLET PO SCH (15:04)
[2020-11-28] MEDS: SENNOSIDES/DOCUSATE SODIUM 1 TAB TABLET PO SCH (22:31)
[2020-11-29] MEDS: 0.9 % SODIUM CHLORIDE 10 ML SYRINGE IV SCH ×3 (06:28→21:22)
[2020-11-29] MEDS: HEPARIN 5,000 UNIT/ML VIAL SQ SCH ×2 (09:01→21:22)
[2020-11-29] MEDS: cefTRIAXone 2 GM in DEXTROSE 5% IN WATER 50 ML IV SCH (09:01)
[2020-11-29] MEDS: DOCUSATE SODIUM 100 MG CAPSULE PO SCH ×2 (09:02→21:22)
[2020-11-29] MEDS: ASCORBIC ACID 500 MG TABLET PO SCH (09:02)
[2020-11-29] MEDS: FERROUS SULFATE 325 MG TABLET PO SCH (09:02)
[2020-11-29] MEDS: MULTIVIT,THER IRON,CA,FA & MIN 1 TABLET PO SCH (09:02)
[2020-11-29] MEDS: FUROSEMIDE 20 MG TABLET PO SCH (09:02)
--- NOTE | 2020-11-29 13:42 | Internal Med Progress Note ---
SUBJECTIVE Subjective Patient information: Note initiated : 11/29/20 at 1:38 pm Service Date, if different from initiated Date: [] Patient: Mouna Jorgensen 80 y/o F admitted on 11/23/20 for covid symptoms, hypoxia. Chief Complaint: [] Interval history: History of present illness: Ms. Jorgensen is a 80 year old F with no significant prior medical history who presents to the ER with 3 weeks onset of worsening shortness of breath, malaise, weakness and loss of appetite. Patient had a short of Covid vaccine 3 weeks ago and following that she has noticed increasing malaise and a gradual decline in general functionality. 2 weeks prior to presentation started experiencing exertional shortness of breath which has progressed very and even minimal activity would lead to dyspnea. She was evaluated at primary care physician's office with a CT chest that showed multifocal chest infiltrates. She was directed to the ER for further evaluation Initial work-up was consistent with hypoxia spray failure requiring 6 L oxygen. Patient was started on remdesivir/dexamethasone after Covid test was ordered. Hospitalist service was consulted At the time of my evaluation patient is alert and was able to answer most the questions. She denies hemoptysis/diarrhea, dysuria endorses to myalgia weakness and generalized malaise and loss of appetite. She denies dysuria, diarrhea, headache, neck stiffness or photophobia. 11/24-patient seen in room this morning. No overnight events. Looks a lot better. Denies fever chills nausea vomiting. No additional concerns per nursing staff. Down from 6 to 3 L oxygen this morning. No overnight telemetry events. Afebrile. On remdesivir/dexamethasone. Covid PCR pending. Continue contact precaution. 11/25-patient doing well. Improved shortness of breath. T-max 99.4. White count 10.4 Covid negative. Remdesivir discontinued. Continuing antibiotics for pneumonia. On 5 L oxygen. 11/26-patient required up to 8 L oxygen yesterday however down to 2.5 this morning. Feels a lot better. On antibiotic coverage. Continue therapies. White count 9.7, echocardiogram results pending. Continuing dietary intervention. Transfer to medical floor today. 11/27-patient profoundly hypoxic requiring 9 L oxygen and desaturates with minimal exertion or even conversation. Start diuresis. Await echocardiogram. Continuing antibiotic coverage including azithromycin/Rocephin. 11/28-patient responding to treatment. Echocardiogram preserved EF 55%. Grade 2 diastolic dysfunction. Currently on 5 L oxygen. Dropped down to mid 50s on minimal exertion. Continue empiric antibiotic coverage. Continue therapies as tolerated. Continue gentle diuresis/interval imaging 11/29-patient seen in room. On 3 L oxygen. Desaturates during exertion requiring fires oxygen. Does not qualify for home oxygen per RT. Continuing antibiotic coverage. Remarkable improvement in 48 hours with gradual weaning oxygen. Feels a lot better. Able to talk in full sentences. Anticipate discharge in 48 hours once able to wean off oxygen. Continue daily therapy/nutrition support/antibiotic coverage. White count 7.5 Constitutional Vitals: Vital Signs Temp Pulse Resp BP Pulse Ox 97.2 F 58 L 16 121/58 94 11/29/20 11:46 11/29/20 11:46 11/29/20 11:46 11/29/20 11:46 11/29/20 11:46 Period Temp Pulse Resp BP Sys/Landeros Pulse Ox Last 24 Hr 97.2 F-98.1 F 51-60 16-20 121-155/58-67 92-97 Intake and Output 11/28/20 11/29/20 11/29/20 21:59 05:59 13:59 Intake Total 250 950 Output Total 550 750 Balance -300 200 Weight 50.462 kg Alert oriented Nonlabored breathing On 3 L oxygen at rest Thin and frail Intake & Output: Intake & Output 11/28/20 11/29/20 11/29/20 21:59 05:59 13:59 Intake Total 250 950 Output Total 550 750 Balance -300 200 Weight 50.462 kg Intake: Nourishment/Supplement quantity 240 (ml) IV 50 Rocephin 2 gm In Dextrose 5% in 50 Water 50 ml @ 100 mls/hr IV Q24H [facility] Rx#:[id number] Oral 250 660 Output: Void Amount 350 750 Urine/Stool Mix 200 Other: Meal Lunch Percent of Meal Consumed 75% Feeding Ability Independent Urine Appearance Clear Clear Clear Urine Color Bright Yellow Bright Yellow Bright Yellow Straw Urine Odor Normal Stool Size Small Moderate Stool Color Brown Green Brown Stool Consistency Liquid Liquid Loose Loose Watery Loose # Bowel Movements 1 1 OBJ DATA Labs CBC & Chem 7: 11/28/20 05:22 11/28/20 05:21 Labs: Abnormal Lab Results 11/28/20 11/28/20 11/27/20 05:22 05:21 05:32 RBC 3.21 L Hgb 10.1 L Hct 31.8 L MCV Neut % (Auto) 79.7 H Lymph % (Auto) 9.5 L Lymph # (Auto) 0.72 L Carbon Dioxide 31 H Anion Gap 5.0 L 7.0 L Calcium 8.3 L 8.3 L Phosphorus 1.8 L Lactate Dehydrogenase 344 H 362 H Total Protein 5.8 L Albumin 2.7 L 2.8 L Albumin/Globulin Ratio 0.9 L 0.8 L 11/27/20 05:32 RBC 3.29 L Hgb 10.4 L Hct 33.1 L MCV 100.6 H Neut % (Auto) 78.8 H Lymph % (Auto) 10.1 L Lymph # (Auto) 0.82 L Carbon Dioxide Anion Gap Calcium Phosphorus Lactate Dehydrogenase Total Protein Albumin Albumin/Globulin Ratio Meds: Medications Acetaminophen (Acetaminophen 325 Mg Tablet) 650 mg PO Q4-6HP PRN; Protocol PRN Reason: Per Pain Protocol/Fever > 101 Albuterol Sulfate (Albuterol Sulfate 200 Puff Inhaler) 1 - 2 puff INH Q4HP PRN PRN Reason: Shortness Of Breath Ascorbic Acid (Ascorbic Acid 500 Mg Tablet) 500 mg PO DAILY [facility] Last Admin: 11/29/20 09:02 Dose: 500 mg Documented by: Bisacodyl (Bisacodyl 10 Mg Supp.Rect) 10 mg MN Q2-3DAYS PRN PRN Reason: Constipation Docusate Sodium (Docusate Sodium 100 Mg Capsule) 100 mg PO BID [facility] Last Admin: 11/29/20 09:02 Dose: Not Given Documented by: Ferrous Sulfate (Ferrous Sulfate 325 Mg Tablet) 325 mg PO QDAY [facility] Last Admin: 11/29/20 09:02 Dose: 325 mg Documented by: Furosemide (Furosemide 20 Mg Tablet) 20 mg PO DAILY [facility] Last Admin: 11/29/20 09:02 Dose: 20 mg Documented by: Guaifenesin/Codeine Phosphate (Guaifenesin/Codeine 10 Ml Udc) 10 ml PO Q4HP PRN PRN Reason: Cough Heparin Sodium (Porcine) (Heparin 5,000 Unit/Ml Vial) 5,000 unit SQ Q12 [facility] Last Admin: 11/29/20 09:01 Dose: 5,000 unit Documented by: Ceftriaxone Sodium 2 gm/ (Dextrose) 50 mls @ 100 mls/hr IV Q24H [facility]; Protocol Last Infusion: 11/29/20 09:35 Dose: Infused Documented by: Acetaminophen (Ofirmev) 650 mg in 65 mls @ 130 mls/hr IV Q6HP PRN; Protocol PRN Reason: Per Pain Protocol/Fever > 101 Magnesium Sulfate (Magnesium Sulfate) 2 gm in 50 mls @ 50 mls/hr IV UD PRN PRN Reason: MG = or < 1.7 Potassium Chloride 40 meq/ (Dextrose) 520 mls @ 130 mls/hr IV UD PRN PRN Reason: K+ = or < 3.5 Iron Carb/Multivit/[employer]/Folic Acid (Multivit,Ther Iron,Ca,Fa & Min 1 Tablet) 1 tab PO DAILY [facility] Last Admin: 11/29/20 09:02 Dose: 1 tab Documented by: Melatonin (Melatonin 3 Mg Tablet) 3 mg PO HSP PRN PRN Reason: Insomnia Ondansetron HCl (Ondansetron 4 Mg Odt Tablet) 4 mg SL Q4-6HP PRN; Protocol PRN Reason: Nausea And Vomiting Ondansetron HCl (Ondansetron 4 Mg/2 Ml Vial) 4 mg IV Q4-6HP PRN; Protocol PRN Reason: Nausea And Vomiting Polyethylene Glycol (Polyethylene Glycol 3350 17 Gm Packet) 17 gm PO DAILYP PRN PRN Reason: Constipation Potassium Chloride (Potassium Chloride 20 Meq Packet) 40 meq PO DAILYP PRN PRN Reason: K+ < 3.5 Potassium/Phosphorus/Sodium (Neutra Phos 1 Packet) 2 packet PO DAILY PRN PRN Reason: PHOS <2.5 Senna/Docusate Sodium (Sennosides/Docusate Sodium 1 Tab Tablet) 1 tab PO HS [facility] Last Admin: 11/28/20 22:31 Dose: Not Given Documented by: Sodium Chloride (0.9 % Sodium Chloride 10 Ml Syringe) 10 ml IV Q8 [facility] Last Admin: 11/29/20 13:36 Dose: 10 ml Documented by: ABG Interpretation ABG results: 11/23/20 17:17 ABG Methemoglobin 0.3 L VBG pH 7.43 VBG pCO2 44.6 VBG pO2 41.1 VBG HCO3 28.9 VBG Total CO2 30.3 VBG O2 Saturation 67.6 VBG Base Excess 4 H A/P Narrative A/P Narrative: * Acute hypoxic respiratory failure-weaning oxygen as tolerated. Currently on 3 L. Echocardiogram EF 55% with severe concentric LVH/diastolic dysfunction * Multifocal pneumonia community-acquired. Covid negative. Clinically improving on antibiotic coverage. * Protein calorie malnutrition/weakness with BMI 18 on presentation-ongoing dietary interventions * Diastolic CHF EF 55%-responding well to diuresis. Concentric LVH on echo. Start low-dose CAROLE inhibitor * Full code * Prophylaxis Heparin Plan * Wean oxygen as tolerated * Continue antibiotic coverage * Continue diuresis, low-dose CAROLE inhibitor * PT OT nutrition support * Thrombosis prophylaxis Time Spent With Patient Time: Total time spent is greater than 50% in coordination of care (as documented) at patient's floor/unit and/or counseling patient: QUALITY VTE Deep Vein Thrombosis/Pulmonary Embolism Present on Admission: No
[2020-11-29] MEDS: LISINOPRIL 2.5 MG TABLET PO SCH (15:29)
[2020-11-29] MEDS: SENNOSIDES/DOCUSATE SODIUM 1 TAB TABLET PO SCH (21:22)
[2020-11-30] MEDS: 0.9 % SODIUM CHLORIDE 10 ML SYRINGE IV SCH ×3 (07:58→21:19)
[2020-11-30] MEDS: DOCUSATE SODIUM 100 MG CAPSULE PO SCH ×2 (08:51→21:19)
--- NOTE | 2020-11-30 08:51 | XRay Report ---
HISTORY: Respiratory failure, follow-up pulmonary infiltrates FINDINGS: Severe widespread infiltrates are present throughout both lungs. This has become worse, most notably in the middle third of the left lung, since the prior exam done on 11/25/20. Lung volumes are normal. There is no pleural effusion or pneumothorax. The heart remains moderately enlarged. The pulmonary vessels are obscured by the infiltrates. The aorta is tortuous. The sary are obscured by surrounding consolidated lung parenchyma. IMPRESSION: Worsening pulmonary infiltrates. This could be due to pneumonia, edema, ARDS or a noninfectious inflammatory process. Interpreted and Authenticated by: Jose Proctor 11/30/20
[2020-11-30] MEDS: cefTRIAXone 2 GM in DEXTROSE 5% IN WATER 50 ML IV SCH (08:52)
[2020-11-30] MEDS: FUROSEMIDE 20 MG TABLET PO SCH (08:52)
[2020-11-30] MEDS: FERROUS SULFATE 325 MG TABLET PO SCH (08:52)
[2020-11-30] MEDS: HEPARIN 5,000 UNIT/ML VIAL SQ SCH ×2 (08:52→21:20)
[2020-11-30] MEDS: ASCORBIC ACID 500 MG TABLET PO SCH (08:53)
[2020-11-30] MEDS: LISINOPRIL 2.5 MG TABLET PO SCH (08:56)
[2020-11-30] MEDS: MULTIVIT,THER IRON,CA,FA & MIN 1 TABLET PO SCH (09:26)
[2020-11-30] MEDS ORDERED: IPRATROPIUM/ALBUTEROL 3 ML AMPUL.NEB NEB PRN (10:48)
--- NOTE | 2020-11-30 10:51 | Internal Med Progress Note ---
SUBJECTIVE Subjective Patient information: Note initiated : 11/30/20 at 10:49 am Service Date, if different from initiated Date: [] Patient: Mouna Jorgensen 80 y/o F admitted on 11/23/20 for covid symptoms, hypoxia. Chief Complaint: [] Interval history: History of present illness: Ms. Jorgensen is a 80 year old F with no significant prior medical history who presents to the ER with 3 weeks onset of worsening shortness of breath, malaise, weakness and loss of appetite. Patient had a short of Covid vaccine 3 weeks ago and following that she has noticed increasing malaise and a gradual decline in general functionality. 2 weeks prior to presentation started experiencing exertional shortness of breath which has progressed very and even minimal activity would lead to dyspnea. She was evaluated at primary care physician's office with a CT chest that showed multifocal chest infiltrates. She was directed to the ER for further evaluation Initial work-up was consistent with hypoxia spray failure requiring 6 L oxygen. Patient was started on remdesivir/dexamethasone after Covid test was ordered. Hospitalist service was consulted At the time of my evaluation patient is alert and was able to answer most the questions. She denies hemoptysis/diarrhea, dysuria endorses to myalgia weakness and generalized malaise and loss of appetite. She denies dysuria, diarrhea, headache, neck stiffness or photophobia. 11/24-patient seen in room this morning. No overnight events. Looks a lot better. Denies fever chills nausea vomiting. No additional concerns per nursing staff. Down from 6 to 3 L oxygen this morning. No overnight telemetry events. Afebrile. On remdesivir/dexamethasone. Covid PCR pending. Continue contact precaution. 11/25-patient doing well. Improved shortness of breath. T-max 99.4. White count 10.4 Covid negative. Remdesivir discontinued. Continuing antibiotics for pneumonia. On 5 L oxygen. 11/26-patient required up to 8 L oxygen yesterday however down to 2.5 this morning. Feels a lot better. On antibiotic coverage. Continue therapies. White count 9.7, echocardiogram results pending. Continuing dietary intervention. Transfer to medical floor today. 11/27-patient profoundly hypoxic requiring 9 L oxygen and desaturates with minimal exertion or even conversation. Start diuresis. Await echocardiogram. Continuing antibiotic coverage including azithromycin/Rocephin. 11/28-patient responding to treatment. Echocardiogram preserved EF 55%. Grade 2 diastolic dysfunction. Currently on 5 L oxygen. Dropped down to mid 50s on minimal exertion. Continue empiric antibiotic coverage. Continue therapies as tolerated. Continue gentle diuresis/interval imaging 11/29-patient seen in room. On 3 L oxygen. Desaturates during exertion requiring fires oxygen. Does not qualify for home oxygen per RT. Continuing antibiotic coverage. Remarkable improvement in 48 hours with gradual weaning oxygen. Feels a lot better. Able to talk in full sentences. Anticipate discharge in 48 hours once able to wean off oxygen. Continue daily therapy/nutrition support/antibiotic coverage. White count 7.5 11/30-patient clinically improving. Now on 2 L oxygen. Overnight on 3 L. Minimal desaturation on exertion. Feels a lot better. Echocardiogram EF 55%. On antibiotic coverage. Anticipate discharge in 24 hours. Per RT does not qualify for home oxygen at this time. Constitutional Vitals: Vital Signs Temp Pulse Resp BP Pulse Ox 97.6 F 47 L 16 96/59 94 11/30/20 06:46 11/30/20 06:46 11/30/20 06:46 11/30/20 06:46 11/30/20 09:05 Period Temp Pulse Resp BP Sys/Landeros Pulse Ox Last 24 Hr 97.2 F-98.8 F 47-65 16-20 96-131/56-61 94-97 Intake and Output 11/29/20 11/30/20 11/30/20 21:59 05:59 13:59 Intake Total 240 100 120 Output Total 245 200 Balance -5 -100 120 Weight 46.629 kg Alert oriented Slightly anxious Nonlabored breathing on 2 L oxygen No lymphedema Intake & Output: Intake & Output 11/29/20 11/30/20 11/30/20 21:59 05:59 13:59 Intake Total 240 100 120 Output Total 245 200 Balance -5 -100 120 Weight 46.629 kg Intake: Oral 240 100 120 Output: Void Amount 245 200 Other: Meal Dinner Breakfast Percent of Meal Consumed 75% 25% Feeding Ability Independent Independent Urine Appearance Clear Clear Urine Color Bright Yellow Bright Yellow OBJ DATA Labs CBC & Chem 7: 11/28/20 05:22 11/28/20 05:21 Labs: Abnormal Lab Results 11/28/20 11/28/20 05:22 05:21 RBC 3.21 L Hgb 10.1 L Hct 31.8 L Neut % (Auto) 79.7 H Lymph % (Auto) 9.5 L Lymph # (Auto) 0.72 L Carbon Dioxide 31 H Anion Gap 5.0 L Calcium 8.3 L Lactate Dehydrogenase 344 H Total Protein 5.8 L Albumin 2.7 L Albumin/Globulin Ratio 0.9 L Meds: Medications Acetaminophen (Acetaminophen 325 Mg Tablet) 650 mg PO Q4-6HP PRN; Protocol PRN Reason: Per Pain Protocol/Fever > 101 Albuterol Sulfate (Albuterol Sulfate 200 Puff Inhaler) 1 - 2 puff INH Q4HP PRN PRN Reason: Shortness Of Breath Albuterol/Ipratropium (Ipratropium/Albuterol 3 Ml Ampul.Neb) 3 ml NEB Q4HP PRN PRN Reason: Shortness Of Breath Ascorbic Acid (Ascorbic Acid 500 Mg Tablet) 500 mg PO DAILY [facility] Last Admin: 11/30/20 08:53 Dose: 500 mg Documented by: Bisacodyl (Bisacodyl 10 Mg Supp.Rect) 10 mg SD Q2-3DAYS PRN PRN Reason: Constipation Docusate Sodium (Docusate Sodium 100 Mg Capsule) 100 mg PO BID [facility] Last Admin: 11/30/20 08:51 Dose: 100 mg Documented by: Ferrous Sulfate (Ferrous Sulfate 325 Mg Tablet) 325 mg PO QDAY [facility] Last Admin: 11/30/20 08:52 Dose: 325 mg Documented by: Furosemide (Furosemide 20 Mg Tablet) 20 mg PO DAILY [facility] Last Admin: 11/30/20 08:52 Dose: 20 mg Documented by: Guaifenesin/Codeine Phosphate (Guaifenesin/Codeine 10 Ml Udc) 10 ml PO Q4HP PRN PRN Reason: Cough Heparin Sodium (Porcine) (Heparin 5,000 Unit/Ml Vial) 5,000 unit SQ Q12 [facility] Last Admin: 11/30/20 08:52 Dose: 5,000 unit Documented by: Ceftriaxone Sodium 2 gm/ (Dextrose) 50 mls @ 100 mls/hr IV Q24H [facility]; Protocol Last Admin: 11/30/20 08:52 Dose: 100 mls/hr Documented by: Acetaminophen (Ofirmev) 650 mg in 65 mls @ 130 mls/hr IV Q6HP PRN; Protocol PRN Reason: Per Pain Protocol/Fever > 101 Magnesium Sulfate (Magnesium Sulfate) 2 gm in 50 mls @ 50 mls/hr IV UD PRN PRN Reason: MG = or < 1.7 Potassium Chloride 40 meq/ (Dextrose) 520 mls @ 130 mls/hr IV UD PRN PRN Reason: K+ = or < 3.5 Iron Carb/Multivit/[place]/Folic Acid (Multivit,Ther Iron,Ca,Fa & Min 1 Tablet) 1 tab PO DAILY [facility] Last Admin: 11/30/20 09:26 Dose: 1 tab Documented by: Lisinopril (Lisinopril 2.5 Mg Tablet) 2.5 mg PO DAILY [facility] Last Admin: 11/30/20 08:56 Dose: Not Given Documented by: Melatonin (Melatonin 3 Mg Tablet) 3 mg PO HSP PRN PRN Reason: Insomnia Ondansetron HCl (Ondansetron 4 Mg Odt Tablet) 4 mg SL Q4-6HP PRN; Protocol PRN Reason: Nausea And Vomiting Ondansetron HCl (Ondansetron 4 Mg/2 Ml Vial) 4 mg IV Q4-6HP PRN; Protocol PRN Reason: Nausea And Vomiting Polyethylene Glycol (Polyethylene Glycol 3350 17 Gm Packet) 17 gm PO DAILYP PRN PRN Reason: Constipation Potassium Chloride (Potassium Chloride 20 Meq Packet) 40 meq PO DAILYP PRN PRN Reason: K+ < 3.5 Potassium/Phosphorus/Sodium (Neutra Phos 1 Packet) 2 packet PO DAILY PRN PRN Reason: PHOS <2.5 Senna/Docusate Sodium (Sennosides/Docusate Sodium 1 Tab Tablet) 1 tab PO HS [facility] Last Admin: 11/29/20 21:22 Dose: Not Given Documented by: Sodium Chloride (0.9 % Sodium Chloride 10 Ml Syringe) 10 ml IV Q8 [facility] Last Admin: 11/30/20 07:58 Dose: 10 ml Documented by: ABG Interpretation ABG results: 11/23/20 17:17 ABG Methemoglobin 0.3 L VBG pH 7.43 VBG pCO2 44.6 VBG pO2 41.1 VBG HCO3 28.9 VBG Total CO2 30.3 VBG O2 Saturation 67.6 VBG Base Excess 4 H A/P Narrative A/P Narrative: * Acute hypoxic respiratory failure-continue to wean supplemental oxygen as tolerated. Echocardiogram EF 55% with severe concentric LVH/diastolic dysfunction * Multifocal pneumonia community-acquired. Covid negative. Clinically improving on antibiotic coverage. * Protein calorie malnutrition/weakness with BMI 18 on presentation-ongoing dietary interventions * Diastolic CHF EF 55%-responding well to diuresis. Concentric LVH on echo. Continue low-dose CAROLE inhibitor * Full code * Prophylaxis Heparin Plan * Wean oxygen as tolerated * Continue antibiotic coverage * Continue diuresis * low-dose CAROLE inhibitor * PT OT nutrition support * Thrombosis prophylaxis Time Spent With Patient Time: Total time spent is greater than 50% in coordination of care (as documented) at patient's floor/unit and/or counseling patient: QUALITY VTE Deep Vein Thrombosis/Pulmonary Embolism Present on Admission: No
[2020-11-30] MEDS: SENNOSIDES/DOCUSATE SODIUM 1 TAB TABLET PO SCH (21:19)
[2020-12-01] MEDS: 0.9 % SODIUM CHLORIDE 10 ML SYRINGE IV SCH ×3 (04:41→21:25)
[2020-12-01] MEDS: FERROUS SULFATE 325 MG TABLET PO SCH (09:00)
[2020-12-01] MEDS: FUROSEMIDE 20 MG TABLET PO SCH (09:00)
[2020-12-01] MEDS: MULTIVIT,THER IRON,CA,FA & MIN 1 TABLET PO SCH (09:00)
[2020-12-01] MEDS: DOCUSATE SODIUM 100 MG CAPSULE PO SCH ×2 (09:00→22:07)
[2020-12-01] MEDS: LISINOPRIL 2.5 MG TABLET PO SCH (09:00)
[2020-12-01] MEDS: ASCORBIC ACID 500 MG TABLET PO SCH (09:00)
[2020-12-01] MEDS: cefTRIAXone 2 GM in DEXTROSE 5% IN WATER 50 ML IV SCH ×2 (09:00→12:10)
[2020-12-01] MEDS: HEPARIN 5,000 UNIT/ML VIAL SQ SCH ×2 (12:09→21:25)
--- NOTE | 2020-12-01 15:19 | Internal Med Progress Note ---
SUBJECTIVE Subjective Patient information: Note initiated : 12/01/20 at 3:15 pm Service Date, if different from initiated Date: [] Patient: Mouna Jorgensen 80 y/o F admitted on 11/23/20 for covid symptoms, hypoxia. Chief Complaint: [] Interval history: History of present illness: Ms. Jorgensen is a 80 year old F with no significant prior medical history who presents to the ER with 3 weeks onset of worsening shortness of breath, malaise, weakness and loss of appetite. Patient had a short of Covid vaccine 3 weeks ago and following that she has noticed increasing malaise and a gradual decline in general functionality. 2 weeks prior to presentation started experiencing exertional shortness of breath which has progressed very and even minimal activity would lead to dyspnea. She was evaluated at primary care physician's office with a CT chest that showed multifocal chest infiltrates. She was directed to the ER for further evaluation Initial work-up was consistent with hypoxia spray failure requiring 6 L oxygen. Patient was started on remdesivir/dexamethasone after Covid test was ordered. Hospitalist service was consulted At the time of my evaluation patient is alert and was able to answer most the questions. She denies hemoptysis/diarrhea, dysuria endorses to myalgia weakness and generalized malaise and loss of appetite. She denies dysuria, diarrhea, headache, neck stiffness or photophobia. 11/24-patient seen in room this morning. No overnight events. Looks a lot better. Denies fever chills nausea vomiting. No additional concerns per nursing staff. Down from 6 to 3 L oxygen this morning. No overnight telemetry events. Afebrile. On remdesivir/dexamethasone. Covid PCR pending. Continue contact precaution. 11/25-patient doing well. Improved shortness of breath. T-max 99.4. White count 10.4 Covid negative. Remdesivir discontinued. Continuing antibiotics for pneumonia. On 5 L oxygen. 11/26-patient required up to 8 L oxygen yesterday however down to 2.5 this morning. Feels a lot better. On antibiotic coverage. Continue therapies. White count 9.7, echocardiogram results pending. Continuing dietary intervention. Transfer to medical floor today. 11/27-patient profoundly hypoxic requiring 9 L oxygen and desaturates with minimal exertion or even conversation. Start diuresis. Await echocardiogram. Continuing antibiotic coverage including azithromycin/Rocephin. 11/28-patient responding to treatment. Echocardiogram preserved EF 55%. Grade 2 diastolic dysfunction. Currently on 5 L oxygen. Dropped down to mid 50s on minimal exertion. Continue empiric antibiotic coverage. Continue therapies as tolerated. Continue gentle diuresis/interval imaging 11/29-patient seen in room. On 3 L oxygen. Desaturates during exertion requiring fires oxygen. Does not qualify for home oxygen per RT. Continuing antibiotic coverage. Remarkable improvement in 48 hours with gradual weaning oxygen. Feels a lot better. Able to talk in full sentences. Anticipate discharge in 48 hours once able to wean off oxygen. Continue daily therapy/nutrition support/antibiotic coverage. White count 7.5 11/30-patient clinically improving. Now on 2 L oxygen. Overnight on 3 L. Minimal desaturation on exertion. Feels a lot better. Echocardiogram EF 55%. On antibiotic coverage. Anticipate discharge in 24 hours. Per RT does not qualify for home oxygen at this time. 12/01 patient on 5 L O2. Frequently desaturates. Continue to antibiotic coverage. Worsening bilateral chest infiltrates on interval imaging. No clinical improvement since previous day Constitutional Vitals: Vital Signs Temp Pulse Resp BP Pulse Ox 97.3 F 62 20 124/55 94 12/01/20 11:30 12/01/20 11:30 12/01/20 11:30 12/01/20 11:30 12/01/20 11:30 Period Temp Pulse Resp BP Sys/Landeros Pulse Ox Last 24 Hr 97.3 F-99.0 F 45-62 13-22 94-124/49-70 87-99 Intake and Output 12/01/20 12/01/20 12/01/20 05:59 13:59 21:59 Intake Total 200 50 Output Total 400 450 Balance 200 -350 -450 on 5 L oxygen Anxious Desats on minimal exertion No lymphedema Intake & Output: Intake & Output 12/01/20 12/01/20 12/01/20 05:59 13:59 21:59 Intake Total 200 50 Output Total 400 450 Balance 200 -350 -450 Intake: IV 50 Rocephin 2 gm In Dextrose 5% in 50 Water 50 ml @ 100 mls/hr IV Q24H [facility] Rx#:[id number] Oral 200 Output: Void Amount 400 450 Other: Meal Breakfast Percent of Meal Consumed 100% Feeding Ability Independent Urine Appearance Clear Clear Urine Color Bright Yellow Bright Yellow Stool Size Large Large Stool Color Brown Brown Stool Consistency Soft Soft OBJ DATA Labs CBC & Chem 7: 11/28/20 05:22 11/28/20 05:21 Meds: Medications Acetaminophen (Acetaminophen 325 Mg Tablet) 650 mg PO Q4-6HP PRN; Protocol PRN Reason: Per Pain Protocol/Fever > 101 Albuterol Sulfate (Albuterol Sulfate 200 Puff Inhaler) 1 - 2 puff INH Q4HP PRN PRN Reason: Shortness Of Breath Albuterol/Ipratropium (Ipratropium/Albuterol 3 Ml Ampul.Neb) 3 ml NEB Q4HP PRN PRN Reason: Shortness Of Breath Ascorbic Acid (Ascorbic Acid 500 Mg Tablet) 500 mg PO DAILY [facility] Last Admin: 12/01/20 09:00 Dose: 500 mg Documented by: Bisacodyl (Bisacodyl 10 Mg Supp.Rect) 10 mg [place] Q2-3DAYS PRN PRN Reason: Constipation Docusate Sodium (Docusate Sodium 100 Mg Capsule) 100 mg PO BID [facility] Last Admin: 12/01/20 09:00 Dose: 100 mg Documented by: Ferrous Sulfate (Ferrous Sulfate 325 Mg Tablet) 325 mg PO QDAY [facility] Last Admin: 12/01/20 09:00 Dose: 325 mg Documented by: Furosemide (Furosemide 20 Mg Tablet) 20 mg PO DAILY [facility] Last Admin: 12/01/20 09:00 Dose: 20 mg Documented by: Guaifenesin/Codeine Phosphate (Guaifenesin/Codeine 10 Ml Udc) 10 ml PO Q4HP PRN PRN Reason: Cough Heparin Sodium (Porcine) (Heparin 5,000 Unit/Ml Vial) 5,000 unit SQ Q12 [facility] Last Admin: 12/01/20 12:09 Dose: 5,000 unit Documented by: Ceftriaxone Sodium 2 gm/ (Dextrose) 50 mls @ 100 mls/hr IV Q24H [facility]; Protocol Last Infusion: 12/01/20 12:14 Dose: Infused Documented by: Acetaminophen (Ofirmev) 650 mg in 65 mls @ 130 mls/hr IV Q6HP PRN; Protocol PRN Reason: Per Pain Protocol/Fever > 101 Magnesium Sulfate (Magnesium Sulfate) 2 gm in 50 mls @ 50 mls/hr IV UD PRN PRN Reason: MG = or < 1.7 Potassium Chloride 40 meq/ (Dextrose) 520 mls @ 130 mls/hr IV UD PRN PRN Reason: K+ = or < 3.5 Iron Carb/Multivit/Bailey/Folic Acid (Multivit,Ther Iron,Ca,Fa & Min 1 Tablet) 1 tab PO DAILY [facility] Last Admin: 12/01/20 09:00 Dose: 1 tab Documented by: Lisinopril (Lisinopril 2.5 Mg Tablet) 2.5 mg PO DAILY [facility] Last Admin: 12/01/20 09:00 Dose: 2.5 mg Documented by: Melatonin (Melatonin 3 Mg Tablet) 3 mg PO HSP PRN PRN Reason: Insomnia Ondansetron HCl (Ondansetron 4 Mg Odt Tablet) 4 mg SL Q4-6HP PRN; Protocol PRN Reason: Nausea And Vomiting Ondansetron HCl (Ondansetron 4 Mg/2 Ml Vial) 4 mg IV Q4-6HP PRN; Protocol PRN Reason: Nausea And Vomiting Polyethylene Glycol (Polyethylene Glycol 3350 17 Gm Packet) 17 gm PO DAILYP PRN PRN Reason: Constipation Potassium Chloride (Potassium Chloride 20 Meq Packet) 40 meq PO DAILYP PRN PRN Reason: K+ < 3.5 Potassium/Phosphorus/Sodium (Neutra Phos 1 Packet) 2 packet PO DAILY PRN PRN Reason: PHOS <2.5 Senna/Docusate Sodium (Sennosides/Docusate Sodium 1 Tab Tablet) 1 tab PO HS [facility] Last Admin: 11/30/20 21:19 Dose: Not Given Documented by: Sodium Chloride (0.9 % Sodium Chloride 10 Ml Syringe) 10 ml IV Q8 [facility] Last Admin: 12/01/20 14:11 Dose: 10 ml Documented by: ABG Interpretation ABG results: 11/23/20 17:17 ABG Methemoglobin 0.3 L VBG pH 7.43 VBG pCO2 44.6 VBG pO2 41.1 VBG HCO3 28.9 VBG Total CO2 30.3 VBG O2 Saturation 67.6 VBG Base Excess 4 H A/P Narrative A/P Narrative: * Acute hypoxic respiratory failure-continue to wean supplemental oxygen as tolerated. Echocardiogram EF 55% with severe concentric LVH/diastolic dysfunction * Multifocal pneumonia community-acquired. Worsening on interval imaging. Covid negative. Continue antibiotic coverage * Protein calorie malnutrition/weakness with BMI 18 on presentation-continue dietary interventions * Diastolic CHF WITH PRESERVED EF 55%-responding well to diuresis. Concentric LVH on echo. Continue low-dose CAROLE inhibitor * Full code * Prophylaxis Heparin Plan * Wean oxygen as tolerated * Continue antibiotic coverage * low-dose CAROLE inhibitor * PT OT nutrition support * Thrombosis prophylaxis Time Spent With Patient Time: Total time spent is greater than 50% in coordination of care (as documented) at patient's floor/unit and/or counseling patient: QUALITY VTE Deep Vein Thrombosis/Pulmonary Embolism Present on Admission: No
[2020-12-01] MEDS: DEXAMETHASONE 4 MG TABLET PO SCH (15:55)
[2020-12-01] MEDS: SENNOSIDES/DOCUSATE SODIUM 1 TAB TABLET PO SCH (22:07)
[2020-12-02] MEDS: 0.9 % SODIUM CHLORIDE 10 ML SYRINGE IV SCH ×3 (05:30→21:17)
[2020-12-02] MEDS: DEXAMETHASONE 4 MG TABLET PO SCH (08:00)
[2020-12-02] MEDS: DOCUSATE SODIUM 100 MG CAPSULE PO SCH ×2 (08:01→21:17)
[2020-12-02] MEDS: FUROSEMIDE 20 MG TABLET PO SCH (08:01)
[2020-12-02] MEDS: HEPARIN 5,000 UNIT/ML VIAL SQ SCH ×2 (08:01→21:16)
[2020-12-02] MEDS: ASCORBIC ACID 500 MG TABLET PO SCH (08:01)
[2020-12-02] MEDS: MULTIVIT,THER IRON,CA,FA & MIN 1 TABLET PO SCH (08:01)
[2020-12-02] MEDS: FERROUS SULFATE 325 MG TABLET PO SCH (08:01)
--- NOTE | 2020-12-02 09:30 | Internal Med Progress Note ---
SUBJECTIVE Subjective Patient information: Note initiated : 12/02/20 at 9:28 am Service Date, if different from initiated Date: [] Patient: Mouna Jorgensen 80 y/o F admitted on 11/23/20 for covid symptoms, hypoxia. Chief Complaint: [] Interval history: History of present illness: Ms. Jorgensen is a 80 year old F with no significant prior medical history who presents to the ER with 3 weeks onset of worsening shortness of breath, malaise, weakness and loss of appetite. Patient had a short of Covid vaccine 3 weeks ago and following that she has noticed increasing malaise and a gradual decline in general functionality. 2 weeks prior to presentation started experiencing exertional shortness of breath which has progressed very and even minimal activity would lead to dyspnea. She was evaluated at primary care physician's office with a CT chest that showed multifocal chest infiltrates. She was directed to the ER for further evaluation Initial work-up was consistent with hypoxia spray failure requiring 6 L oxygen. Patient was started on remdesivir/dexamethasone after Covid test was ordered. Hospitalist service was consulted At the time of my evaluation patient is alert and was able to answer most the questions. She denies hemoptysis/diarrhea, dysuria endorses to myalgia weakness and generalized malaise and loss of appetite. She denies dysuria, diarrhea, headache, neck stiffness or photophobia. 11/24-patient seen in room this morning. No overnight events. Looks a lot better. Denies fever chills nausea vomiting. No additional concerns per nursing staff. Down from 6 to 3 L oxygen this morning. No overnight telemetry events. Afebrile. On remdesivir/dexamethasone. Covid PCR pending. Continue contact precaution. 11/25-patient doing well. Improved shortness of breath. T-max 99.4. White count 10.4 Covid negative. Remdesivir discontinued. Continuing antibiotics for pneumonia. On 5 L oxygen. 11/26-patient required up to 8 L oxygen yesterday however down to 2.5 this morning. Feels a lot better. On antibiotic coverage. Continue therapies. White count 9.7, echocardiogram results pending. Continuing dietary intervention. Transfer to medical floor today. 11/27-patient profoundly hypoxic requiring 9 L oxygen and desaturates with minimal exertion or even conversation. Start diuresis. Await echocardiogram. Continuing antibiotic coverage including azithromycin/Rocephin. 11/28-patient responding to treatment. Echocardiogram preserved EF 55%. Grade 2 diastolic dysfunction. Currently on 5 L oxygen. Dropped down to mid 50s on minimal exertion. Continue empiric antibiotic coverage. Continue therapies as tolerated. Continue gentle diuresis/interval imaging 11/29-patient seen in room. On 3 L oxygen. Desaturates during exertion requiring fires oxygen. Does not qualify for home oxygen per RT. Continuing antibiotic coverage. Remarkable improvement in 48 hours with gradual weaning oxygen. Feels a lot better. Able to talk in full sentences. Anticipate discharge in 48 hours once able to wean off oxygen. Continue daily therapy/nutrition support/antibiotic coverage. White count 7.5 11/30-patient clinically improving. Now on 2 L oxygen. Overnight on 3 L. Minimal desaturation on exertion. Feels a lot better. Echocardiogram EF 55%. On antibiotic coverage. Anticipate discharge in 24 hours. Per RT does not qualify for home oxygen at this time. 12/01 patient on 5 L O2. Frequently desaturates. Continue to antibiotic coverage. Worsening bilateral chest infiltrates on interval imaging. No clinical improvement since previous day 12/02-patient continues to be on 4 to 5 L oxygen. Responding well to steroids. Antibiotics day 03/21 DC in 24 hours. No overnight fever chills. Doing well. Tolerating diet. Ongoing physical therapy but desats to mid 60s to 70s on exertion. Constitutional Vitals: Vital Signs Temp Pulse Resp BP Pulse Ox 97.5 F 46 L 18 119/55 97 12/02/20 07:48 12/02/20 07:48 12/02/20 07:48 12/02/20 07:48 12/02/20 07:48 Period Temp Pulse Resp BP Sys/Landeros Pulse Ox Last 24 Hr 97.3 F-98.7 F 46-80 -20 101-124/53-55 92-98 Intake and Output 12/01/20 12/02/20 12/02/20 21:59 05:59 13:59 Output Total 450 150 150 Balance -450 -150 -150 Weight 46.13 kg Alert oriented Nonlabored breathing currently on 4 L oxygen No anxiety Hard of hearing/hearing aids Intake & Output: Intake & Output 12/01/20 12/02/20 12/02/20 21:59 05:59 13:59 Output Total 450 150 150 Balance -450 -150 -150 Weight 46.13 kg Output: Void Amount 450 150 150 Other: Urine Appearance Clear Clear Clear Urine Color Bright Yellow Bright Yellow Bright Yellow Urine Odor Normal Stool Size Large Stool Color Brown Stool Consistency Soft OBJ DATA Labs CBC & Chem 7: 11/28/20 05:22 11/28/20 05:21 Meds: Medications Acetaminophen (Acetaminophen 325 Mg Tablet) 650 mg PO Q4-6HP PRN; Protocol PRN Reason: Per Pain Protocol/Fever > 101 Albuterol Sulfate (Albuterol Sulfate 200 Puff Inhaler) 1 - 2 puff INH Q4HP PRN PRN Reason: Shortness Of Breath Albuterol/Ipratropium (Ipratropium/Albuterol 3 Ml Ampul.Neb) 3 ml NEB Q4HP PRN PRN Reason: Shortness Of Breath Ascorbic Acid (Ascorbic Acid 500 Mg Tablet) 500 mg PO DAILY [facility] Last Admin: 12/02/20 08:01 Dose: 500 mg Documented by: Bisacodyl (Bisacodyl 10 Mg Supp.Rect) 10 mg [place] Q2-3DAYS PRN PRN Reason: Constipation Dexamethasone (Dexamethasone 4 Mg Tablet) 6 mg PO DAILY [facility] Last Admin: 12/02/20 08:00 Dose: 6 mg Documented by: Docusate Sodium (Docusate Sodium 100 Mg Capsule) 100 mg PO BID [facility] Last Admin: 12/02/20 08:01 Dose: 100 mg Documented by: Ferrous Sulfate (Ferrous Sulfate 325 Mg Tablet) 325 mg PO QDAY [facility] Last Admin: 12/02/20 08:01 Dose: 325 mg Documented by: Furosemide (Furosemide 20 Mg Tablet) 20 mg PO DAILY [facility] Last Admin: 12/02/20 08:01 Dose: 20 mg Documented by: Guaifenesin/Codeine Phosphate (Guaifenesin/Codeine 10 Ml Udc) 10 ml PO Q4HP PRN PRN Reason: Cough Heparin Sodium (Porcine) (Heparin 5,000 Unit/Ml Vial) 5,000 unit SQ Q12 [facility] Last Admin: 12/02/20 08:01 Dose: 5,000 unit Documented by: Ceftriaxone Sodium 2 gm/ (Dextrose) 50 mls @ 100 mls/hr IV Q24H [facility]; Protocol Last Infusion: 12/01/20 12:14 Dose: Infused Documented by: Acetaminophen (Ofirmev) 650 mg in 65 mls @ 130 mls/hr IV Q6HP PRN; Protocol PRN Reason: Per Pain Protocol/Fever > 101 Magnesium Sulfate (Magnesium Sulfate) 2 gm in 50 mls @ 50 mls/hr IV UD PRN PRN Reason: MG = or < 1.7 Potassium Chloride 40 meq/ (Dextrose) 520 mls @ 130 mls/hr IV UD PRN PRN Reason: K+ = or < 3.5 Iron Carb/Multivit/Product Engineering Manager/Folic Acid (Multivit,Ther Iron,Ca,Fa & Min 1 Tablet) 1 tab PO DAILY [facility] Last Admin: 12/02/20 08:01 Dose: 1 tab Documented by: Lisinopril (Lisinopril 2.5 Mg Tablet) 2.5 mg PO DAILY [facility] Last Admin: 12/01/20 09:00 Dose: 2.5 mg Documented by: Melatonin (Melatonin 3 Mg Tablet) 3 mg PO HSP PRN PRN Reason: Insomnia Ondansetron HCl (Ondansetron 4 Mg Odt Tablet) 4 mg SL Q4-6HP PRN; Protocol PRN Reason: Nausea And Vomiting Ondansetron HCl (Ondansetron 4 Mg/2 Ml Vial) 4 mg IV Q4-6HP PRN; Protocol PRN Reason: Nausea And Vomiting Polyethylene Glycol (Polyethylene Glycol 3350 17 Gm Packet) 17 gm PO DAILYP PRN PRN Reason: Constipation Potassium Chloride (Potassium Chloride 20 Meq Packet) 40 meq PO DAILYP PRN PRN Reason: K+ < 3.5 Potassium/Phosphorus/Sodium (Neutra Phos 1 Packet) 2 packet PO DAILY PRN PRN Reason: PHOS <2.5 Senna/Docusate Sodium (Sennosides/Docusate Sodium 1 Tab Tablet) 1 tab PO HS [facility] Last Admin: 12/01/20 22:07 Dose: Not Given Documented by: Sodium Chloride (0.9 % Sodium Chloride 10 Ml Syringe) 10 ml IV Q8 [facility] Last Admin: 12/02/20 05:30 Dose: 10 ml Documented by: ABG Interpretation ABG results: 11/23/20 17:17 ABG Methemoglobin 0.3 L VBG pH 7.43 VBG pCO2 44.6 VBG pO2 41.1 VBG HCO3 28.9 VBG Total CO2 30.3 VBG O2 Saturation 67.6 VBG Base Excess 4 H A/P Narrative A/P Narrative: * Acute hypoxic respiratory failure-secondary to multifocal pneumonia, Wean oxygen as tolerated. Echocardiogram EF 55% with severe concentric LVH/diastolic dysfunction. * Multifocal pneumonia community-acquired versus viral. Antibiotics day 03/21. On Decadron. DC antibiotics in 24 hours * Protein calorie malnutrition/weakness with BMI 18 on presentation-continue dietary interventions * Diastolic CHF with preserved EF 55%-responding well to diuresis. Concentric LVH on echo. Continue low-dose CAROLE inhibitor * Full code * Prophylaxis Heparin Plan * Wean oxygen as tolerated * Antibiotics day 03/21 DC in 24 hours * Decadron * low-dose CAROLE inhibitor * PT OT nutrition support * Thrombosis prophylaxis Time Spent With Patient Time: Total time spent is greater than 50% in coordination of care (as documented) at patient's floor/unit and/or counseling patient: QUALITY VTE Deep Vein Thrombosis/Pulmonary Embolism Present on Admission: No
[2020-12-02] MEDS: LISINOPRIL 2.5 MG TABLET PO SCH (10:02)
[2020-12-02] MEDS: cefTRIAXone 2 GM in DEXTROSE 5% IN WATER 50 ML IV SCH (10:02)
[2020-12-02] MEDS ORDERED: ALBUMIN HUMAN 12.5 GM/50 ML BAG IV ONE (13:18)
[2020-12-02] MEDS ORDERED: FUROSEMIDE 40 MG/4 ML VIAL IV ONE (13:18)
--- NOTE | 2020-12-02 13:19 | Internal Med Progress Note ---
SUBJECTIVE Subjective Patient information: Note initiated : 12/02/20 at 1:10 pm Service Date, if different from initiated Date: [] Patient: Mouna Jorgensen 80 y/o F admitted on 11/23/20 for covid symptoms, hypoxia. Chief Complaint: [] Interval history: History of present illness: Ms. Jorgensen is a 80 year old F with no significant prior medical history who presents to the ER with 3 weeks onset of worsening shortness of breath, malaise, weakness and loss of appetite. Patient had a short of Covid vaccine 3 weeks ago and following that she has noticed increasing malaise and a gradual decline in general functionality. 2 weeks prior to presentation started experiencing exertional shortness of breath which has progressed very and even minimal activity would lead to dyspnea. She was evaluated at primary care physician's office with a CT chest that showed multifocal chest infiltrates. She was directed to the ER for further evaluation Initial work-up was consistent with hypoxia spray failure requiring 6 L oxygen. Patient was started on remdesivir/dexamethasone after Covid test was ordered. Hospitalist service was consulted At the time of my evaluation patient is alert and was able to answer most the questions. She denies hemoptysis/diarrhea, dysuria endorses to myalgia weakness and generalized malaise and loss of appetite. She denies dysuria, diarrhea, headache, neck stiffness or photophobia. 11/24-patient seen in room this morning. No overnight events. Looks a lot better. Denies fever chills nausea vomiting. No additional concerns per nursing staff. Down from 6 to 3 L oxygen this morning. No overnight telemetry events. Afebrile. On remdesivir/dexamethasone. Covid PCR pending. Continue contact precaution. 11/25-patient doing well. Improved shortness of breath. T-max 99.4. White count 10.4 Covid negative. Remdesivir discontinued. Continuing antibiotics for pneumonia. On 5 L oxygen. 11/26-patient required up to 8 L oxygen yesterday however down to 2.5 this morning. Feels a lot better. On antibiotic coverage. Continue therapies. White count 9.7, echocardiogram results pending. Continuing dietary intervention. Transfer to medical floor today. 11/27-patient profoundly hypoxic requiring 9 L oxygen and desaturates with minimal exertion or even conversation. Start diuresis. Await echocardiogram. Continuing antibiotic coverage including azithromycin/Rocephin. 11/28-patient responding to treatment. Echocardiogram preserved EF 55%. Grade 2 diastolic dysfunction. Currently on 5 L oxygen. Dropped down to mid 50s on minimal exertion. Continue empiric antibiotic coverage. Continue therapies as tolerated. Continue gentle diuresis/interval imaging 11/29-patient seen in room. On 3 L oxygen. Desaturates during exertion requiring fires oxygen. Does not qualify for home oxygen per RT. Continuing antibiotic coverage. Remarkable improvement in 48 hours with gradual weaning oxygen. Feels a lot better. Able to talk in full sentences. Anticipate discharge in 48 hours once able to wean off oxygen. Continue daily therapy/nutrition support/antibiotic coverage. White count 7.5 11/30-patient clinically improving. Now on 2 L oxygen. Overnight on 3 L. Minimal desaturation on exertion. Feels a lot better. Echocardiogram EF 55%. On antibiotic coverage. Anticipate discharge in 24 hours. Per RT does not qualify for home oxygen at this time. 12/01 patient on 5 L O2. Frequently desaturates. Continue to antibiotic coverage. Worsening bilateral chest infiltrates on interval imaging. No clinical improvement since previous day 12/02-patient continues to be on 4 to 5 L oxygen. Responding well to steroids. Antibiotics day 03/21 DC in 24 hours. No overnight fever chills. Doing well. Tolerating diet. Ongoing physical therapy but desats to mid 60s to 70s on exertion. Constitutional Vitals: Vital Signs Temp Pulse Resp BP Pulse Ox 98.3 F 56 L 16 94/45 91 12/02/20 11:34 12/02/20 11:34 12/02/20 11:34 12/02/20 11:34 12/02/20 11:34 Period Temp Pulse Resp BP Sys/Landeros Pulse Ox Last 24 Hr 97.5 F-98.7 F 46-80 16-18 94-119/45-55 91-98 Intake and Output 12/01/20 12/02/20 12/02/20 21:59 05:59 13:59 Intake Total 50 Output Total 450 150 350 Balance -450 -150 -300 Weight 46.13 kg Intake & Output: Intake & Output 12/01/20 12/02/20 12/02/20 21:59 05:59 13:59 Intake Total 50 Output Total 450 150 350 Balance -450 -150 -300 Weight 46.13 kg Intake: IV 50 Rocephin 2 gm In Dextrose 5% in 50 Water 50 ml @ 100 mls/hr IV Q24H [facility] Rx#:[id number] Output: Void Amount 450 150 350 Other: Urine Appearance Clear Clear Clear Urine Color Bright Yellow Bright Yellow Bright Yellow Urine Odor Normal Stool Size Large Moderate Stool Color Brown Brown Stool Consistency Soft Soft Exam: General: Alert, Awake, No acute Distress Eyes/N/T: EOMI, Head/Neck: neck supple, CV: RRR, No murmurs, Pulm: b/l, no wheezing Abd: soft, nontender, +BS x4 Ext: no clubbing/cyanosis/edema Neuro: Alert, no focal deficits, moves all extremities, Skin: warm/dry OBJ DATA Labs CBC & Chem 7: 11/28/20 05:22 11/28/20 05:21 Meds: Medications Acetaminophen (Acetaminophen 325 Mg Tablet) 650 mg PO Q4-6HP PRN; Protocol PRN Reason: Per Pain Protocol/Fever > 101 Albuterol Sulfate (Albuterol Sulfate 200 Puff Inhaler) 1 - 2 puff INH Q4HP PRN PRN Reason: Shortness Of Breath Albuterol/Ipratropium (Ipratropium/Albuterol 3 Ml Ampul.Neb) 3 ml NEB Q4HP PRN PRN Reason: Shortness Of Breath Ascorbic Acid (Ascorbic Acid 500 Mg Tablet) 500 mg PO DAILY [facility] Last Admin: 12/02/20 08:01 Dose: 500 mg Documented by: Bisacodyl (Bisacodyl 10 Mg Supp.Rect) 10 mg CA Q2-3DAYS PRN PRN Reason: Constipation Dexamethasone (Dexamethasone 4 Mg Tablet) 6 mg PO DAILY [facility] Last Admin: 12/02/20 08:00 Dose: 6 mg Documented by: Docusate Sodium (Docusate Sodium 100 Mg Capsule) 100 mg PO BID [facility] Last Admin: 12/02/20 08:01 Dose: 100 mg Documented by: Ferrous Sulfate (Ferrous Sulfate 325 Mg Tablet) 325 mg PO QDAY [facility] Last Admin: 12/02/20 08:01 Dose: 325 mg Documented by: Furosemide (Furosemide 20 Mg Tablet) 20 mg PO DAILY [facility] Last Admin: 12/02/20 08:01 Dose: 20 mg Documented by: Guaifenesin/Codeine Phosphate (Guaifenesin/Codeine 10 Ml Udc) 10 ml PO Q4HP PRN PRN Reason: Cough Heparin Sodium (Porcine) (Heparin 5,000 Unit/Ml Vial) 5,000 unit SQ Q12 [facility] Last Admin: 12/02/20 08:01 Dose: 5,000 unit Documented by: Ceftriaxone Sodium 2 gm/ (Dextrose) 50 mls @ 100 mls/hr IV Q24H [facility]; Protocol Last Infusion: 12/02/20 10:35 Dose: Infused Documented by: Acetaminophen (Ofirmev) 650 mg in 65 mls @ 130 mls/hr IV Q6HP PRN; Protocol PRN Reason: Per Pain Protocol/Fever > 101 Magnesium Sulfate (Magnesium Sulfate) 2 gm in 50 mls @ 50 mls/hr IV UD PRN PRN Reason: MG = or < 1.7 Potassium Chloride 40 meq/ (Dextrose) 520 mls @ 130 mls/hr IV UD PRN PRN Reason: K+ = or < 3.5 Iron Carb/Multivit/Airborne Operations Superintendent/Folic Acid (Multivit,Ther Iron,Ca,Fa & Min 1 Tablet) 1 tab PO DAILY [facility] Last Admin: 12/02/20 08:01 Dose: 1 tab Documented by: Lisinopril (Lisinopril 2.5 Mg Tablet) 2.5 mg PO DAILY [facility] Last Admin: 12/02/20 10:02 Dose: 2.5 mg Documented by: Melatonin (Melatonin 3 Mg Tablet) 3 mg PO HSP PRN PRN Reason: Insomnia Ondansetron HCl (Ondansetron 4 Mg Odt Tablet) 4 mg SL Q4-6HP PRN; Protocol PRN Reason: Nausea And Vomiting Ondansetron HCl (Ondansetron 4 Mg/2 Ml Vial) 4 mg IV Q4-6HP PRN; Protocol PRN Reason: Nausea And Vomiting Polyethylene Glycol (Polyethylene Glycol 3350 17 Gm Packet) 17 gm PO DAILYP PRN PRN Reason: Constipation Potassium Chloride (Potassium Chloride 20 Meq Packet) 40 meq PO DAILYP PRN PRN Reason: K+ < 3.5 Potassium/Phosphorus/Sodium (Neutra Phos 1 Packet) 2 packet PO DAILY PRN PRN Reason: PHOS <2.5 Senna/Docusate Sodium (Sennosides/Docusate Sodium 1 Tab Tablet) 1 tab PO [facility] Last Admin: 12/01/20 22:07 Dose: Not Given Documented by: Sodium Chloride (0.9 % Sodium Chloride 10 Ml Syringe) 10 ml IV Q8 [facility] Last Admin: 12/02/20 05:30 Dose: 10 ml Documented by: ABG Interpretation ABG results: 11/23/20 17:17 ABG Methemoglobin 0.3 L VBG pH 7.43 VBG pCO2 44.6 VBG pO2 41.1 VBG HCO3 28.9 VBG Total CO2 30.3 VBG O2 Saturation 67.6 VBG Base Excess 4 H A/P Narrative A/P Narrative: A: *Acute hypoxic respiratory failure: secondary to multifocal pneumonia -Echocardiogram EF 55% with severe concentric LVH/diastolic dysfunction. -currently on 4LNC *Multifocal pneumonia community: acquired versus viral. -flu/covid/rvp neg *Protein calorie malnutrition/generalized weakness: with BMI 18 on presentation *acute on chronic Diastolic (II) CHF: -responding well to diuresis. Concentric LVH on echo, EF 55%. Continue low- dose CAROLE inhibitor Plan: -Wean oxygen as tolerated -Antibiotics day / DC in 24 hours -pending SC -low-dose CAROLE inhibitor -PT OT nutrition support -ppx: Heparin Full code Time Spent With Patient Time: Total time spent is greater than 50% in coordination of care (as documented) at patient's floor/unit and/or counseling patient: QUALITY VTE Deep Vein Thrombosis/Pulmonary Embolism Present on Admission: No
[2020-12-02] MEDS: SENNOSIDES/DOCUSATE SODIUM 1 TAB TABLET PO SCH (21:17)
[2020-12-03] MEDS: 0.9 % SODIUM CHLORIDE 10 ML SYRINGE IV SCH ×3 (04:32→22:00)
[2020-12-03] MEDS: DOCUSATE SODIUM 100 MG CAPSULE PO SCH (07:01)
--- NOTE | 2020-12-03 07:06 | Internal Med Progress Note ---
SUBJECTIVE Subjective Patient information: Note initiated : 12/03/20 at 7:02 am Service Date, if different from initiated Date: [] Patient: Mouna Jorgensen 80 y/o F admitted on 11/23/20 for covid symptoms, hypoxia. Chief Complaint: [] Interval history: History of present illness: Ms. Jorgensen is a 80 year old F with no significant prior medical history who presents to the ER with 3 weeks onset of worsening shortness of breath, malaise, weakness and loss of appetite. Patient had a short of Covid vaccine 3 weeks ago and following that she has noticed increasing malaise and a gradual decline in general functionality. 2 weeks prior to presentation started experiencing exertional shortness of breath which has progressed very and even minimal activity would lead to dyspnea. She was evaluated at primary care physician's office with a CT chest that showed multifocal chest infiltrates. She was directed to the ER for further evaluation Initial work-up was consistent with hypoxia spray failure requiring 6 L oxygen. Patient was started on remdesivir/dexamethasone after Covid test was ordered. Hospitalist service was consulted At the time of my evaluation patient is alert and was able to answer most the questions. She denies hemoptysis/diarrhea, dysuria endorses to myalgia weakness and generalized malaise and loss of appetite. She denies dysuria, diarrhea, headache, neck stiffness or photophobia. 11/24-patient seen in room this morning. No overnight events. Looks a lot better. Denies fever chills nausea vomiting. No additional concerns per nursing staff. Down from 6 to 3 L oxygen this morning. No overnight telemetry events. Afebrile. On remdesivir/dexamethasone. Covid PCR pending. Continue contact precaution. 11/25-patient doing well. Improved shortness of breath. T-max 99.4. White count 10.4 Covid negative. Remdesivir discontinued. Continuing antibiotics for pneumonia. On 5 L oxygen. 11/26-patient required up to 8 L oxygen yesterday however down to 2.5 this morning. Feels a lot better. On antibiotic coverage. Continue therapies. White count 9.7, echocardiogram results pending. Continuing dietary intervention. Transfer to medical floor today. 11/27-patient profoundly hypoxic requiring 9 L oxygen and desaturates with minimal exertion or even conversation. Start diuresis. Await echocardiogram. Continuing antibiotic coverage including azithromycin/Rocephin. 11/28-patient responding to treatment. Echocardiogram preserved EF 55%. Grade 2 diastolic dysfunction. Currently on 5 L oxygen. Dropped down to mid 50s on minimal exertion. Continue empiric antibiotic coverage. Continue therapies as tolerated. Continue gentle diuresis/interval imaging 11/29-patient seen in room. On 3 L oxygen. Desaturates during exertion requiring fires oxygen. Does not qualify for home oxygen per RT. Continuing antibiotic coverage. Remarkable improvement in 48 hours with gradual weaning oxygen. Feels a lot better. Able to talk in full sentences. Anticipate discharge in 48 hours once able to wean off oxygen. Continue daily therapy/nutrition support/antibiotic coverage. White count 7.5 11/30-patient clinically improving. Now on 2 L oxygen. Overnight on 3 L. Minimal desaturation on exertion. Feels a lot better. Echocardiogram EF 55%. On antibiotic coverage. Anticipate discharge in 24 hours. Per RT does not qualify for home oxygen at this time. 12/01 patient on 5 L O2. Frequently desaturates. Continue to antibiotic coverage. Worsening bilateral chest infiltrates on interval imaging. No clinical improvement since previous day 12/02-patient continues to be on 4 to 5 L oxygen. Responding well to steroids. Antibiotics day 03/21 DC in 24 hours. No overnight fever chills. Doing well. Tolerating diet. Ongoing physical therapy but desats to mid 60s to 70s on exertion. 12/03 On 2 L nasal cannula. Denies any shortness of breath or cough. Poor sleep. Does have diarrhea. hold stool softener Review of Systems: denies headache/fever/chills/nausea/vomiting/chest or abdominal pain. Otherwise see above. Constitutional Vitals: Vital Signs Temp Pulse Resp BP Pulse Ox 98.3 F 52 L 18 124/57 97 12/03/20 03:55 12/03/20 03:55 12/03/20 03:55 12/03/20 03:55 12/03/20 03:55 Period Temp Pulse Resp BP Sys/Landeros Pulse Ox Last 24 Hr 97.3 F-98.3 F 46-64 16-20 94-133/45-61 90-97 Intake and Output 12/02/20 12/03/20 12/03/20 21:59 05:59 13:59 Intake Total 0 Output Total 309 0 Balance -309 0 Weight 45.495 kg Intake & Output: Intake & Output 12/02/20 12/03/20 12/03/20 21:59 05:59 13:59 Intake Total 0 Output Total 309 0 Balance -309 0 Weight 45.495 kg Intake: Oral 0 Output: Void Amount 300 0 # of times incontinent of urine 9 Other: Urine Appearance Clear Urine Color Pale Urine Odor Normal # Voids 2 Exam: General: Alert, Awake, No acute Distress Eyes/N/T: EOMI, Head/Neck: neck supple, CV: RRR, No murmurs, Pulm: mild rales b/l R>L, no wheezing Abd: soft, nontender, +BS x4 Ext: no clubbing/cyanosis/edema Neuro: Alert, no focal deficits, moves all extremities, Skin: warm/dry OBJ DATA Labs CBC & Chem 7: 11/28/20 05:22 11/28/20 05:21 Meds: Medications Acetaminophen (Acetaminophen 325 Mg Tablet) 650 mg PO Q4-6HP PRN; Protocol PRN Reason: Per Pain Protocol/Fever > 101 Albuterol Sulfate (Albuterol Sulfate 200 Puff Inhaler) 1 - 2 puff INH Q4HP PRN PRN Reason: Shortness Of Breath Albuterol/Ipratropium (Ipratropium/Albuterol 3 Ml Ampul.Neb) 3 ml NEB Q4HP PRN PRN Reason: Shortness Of Breath Ascorbic Acid (Ascorbic Acid 500 Mg Tablet) 500 mg PO DAILY [facility] Last Admin: 12/02/20 08:01 Dose: 500 mg Documented by: Bisacodyl (Bisacodyl 10 Mg Supp.Rect) 10 mg [place] Q2-3DAYS PRN PRN Reason: Constipation Dexamethasone (Dexamethasone 4 Mg Tablet) 6 mg PO DAILY [facility] Last Admin: 12/02/20 08:00 Dose: 6 mg Documented by: Docusate Sodium (Docusate Sodium 100 Mg Capsule) 100 mg PO BID [facility] Last Admin: 12/03/20 07:01 Dose: Not Given Documented by: Ferrous Sulfate (Ferrous Sulfate 325 Mg Tablet) 325 mg PO QDAY [facility] Last Admin: 12/02/20 08:01 Dose: 325 mg Documented by: Furosemide (Furosemide 20 Mg Tablet) 20 mg PO DAILY [facility] Last Admin: 12/02/20 08:01 Dose: 20 mg Documented by: Guaifenesin/Codeine Phosphate (Guaifenesin/Codeine 10 Ml Udc) 10 ml PO Q4HP PRN PRN Reason: Cough Heparin Sodium (Porcine) (Heparin 5,000 Unit/Ml Vial) 5,000 unit SQ Q12 [facility] Last Admin: 12/02/20 21:16 Dose: 5,000 unit Documented by: Ceftriaxone Sodium 2 gm/ (Dextrose) 50 mls @ 100 mls/hr IV Q24H [facility]; Protocol Last Infusion: 12/02/20 10:35 Dose: Infused Documented by: Acetaminophen (Ofirmev) 650 mg in 65 mls @ 130 mls/hr IV Q6HP PRN; Protocol PRN Reason: Per Pain Protocol/Fever > 101 Magnesium Sulfate (Magnesium Sulfate) 2 gm in 50 mls @ 50 mls/hr IV UD PRN PRN Reason: MG = or < 1.7 Potassium Chloride 40 meq/ (Dextrose) 520 mls @ 130 mls/hr IV UD PRN PRN Reason: K+ = or < 3.5 Iron Carb/Multivit/Material Control Supervisor/Folic Acid (Multivit,Ther Iron,Ca,Fa & Min 1 Tablet) 1 tab PO DAILY [facility] Last Admin: 12/02/20 08:01 Dose: 1 tab Documented by: Lisinopril (Lisinopril 2.5 Mg Tablet) 2.5 mg PO DAILY [facility] Last Admin: 12/02/20 10:02 Dose: 2.5 mg Documented by: Melatonin (Melatonin 3 Mg Tablet) 3 mg PO HSP PRN PRN Reason: Insomnia Ondansetron HCl (Ondansetron 4 Mg Odt Tablet) 4 mg SL Q4-6HP PRN; Protocol PRN Reason: Nausea And Vomiting Ondansetron HCl (Ondansetron 4 Mg/2 Ml Vial) 4 mg IV Q4-6HP PRN; Protocol PRN Reason: Nausea And Vomiting Polyethylene Glycol (Polyethylene Glycol 3350 17 Gm Packet) 17 gm PO DAILYP PRN PRN Reason: Constipation Potassium Chloride (Potassium Chloride 20 Meq Packet) 40 meq PO DAILYP PRN PRN Reason: K+ < 3.5 Potassium/Phosphorus/Sodium (Neutra Phos 1 Packet) 2 packet PO DAILY PRN PRN Reason: PHOS <2.5 Senna/Docusate Sodium (Sennosides/Docusate Sodium 1 Tab Tablet) 1 tab PO HS [facility] Last Admin: 12/02/20 21:17 Dose: Not Given Documented by: Sodium Chloride (0.9 % Sodium Chloride 10 Ml Syringe) 10 ml IV Q8 [facility] Last Admin: 12/03/20 04:32 Dose: 10 ml Documented by: ABG Interpretation ABG results: 11/23/20 17:17 ABG Methemoglobin 0.3 L VBG pH 7.43 VBG pCO2 44.6 VBG pO2 41.1 VBG HCO3 28.9 VBG Total CO2 30.3 VBG O2 Saturation 67.6 VBG Base Excess 4 H A/P Narrative A/P Narrative: A: *Acute hypoxic respiratory failure: secondary to multifocal pneumonia -Echocardiogram EF 55% with severe concentric LVH/diastolic dysfunction. -currently on LNC *Multifocal pneumonia community: acquired versus viral. -flu/covid/rvp neg *Protein calorie malnutrition/generalized weakness: with BMI 18 on presentation *acute on chronic Diastolic (II) CHF: -responding well to diuresis. Concentric LVH on echo, EF 55%. Continue low- dose CAROLE inhibitor *Diarrhea: stop stool softeners, pending fecal wbc Plan: -Wean oxygen as tolerated -d/c abx after today -pending SC -low-dose CAROLE inhibitor -PT OT nutrition support -ppx: Heparin Full code Time Spent With Patient Time: Total time spent is greater than 50% in coordination of care (as documented) at patient's floor/unit and/or counseling patient: QUALITY VTE Deep Vein Thrombosis/Pulmonary Embolism Present on Admission: No
[2020-12-03] MEDS: LISINOPRIL 2.5 MG TABLET PO SCH (08:11)
[2020-12-03] MEDS: ASCORBIC ACID 500 MG TABLET PO SCH (08:12)
[2020-12-03] MEDS: FERROUS SULFATE 325 MG TABLET PO SCH (08:12)
[2020-12-03] MEDS: FUROSEMIDE 20 MG TABLET PO SCH (08:12)
[2020-12-03] MEDS: MULTIVIT,THER IRON,CA,FA & MIN 1 TABLET PO SCH (08:12)
[2020-12-03] MEDS: HEPARIN 5,000 UNIT/ML VIAL SQ SCH (08:12)
[2020-12-03] MEDS: cefTRIAXone 2 GM in DEXTROSE 5% IN WATER 50 ML IV SCH (08:22)
[2020-12-03] MEDS ORDERED: ALBUMIN HUMAN 12.5 GM/50 ML BAG IV ONE (09:04)
[2020-12-03] MEDS ORDERED: FUROSEMIDE 40 MG/4 ML VIAL IV ONE ×2 (09:04→10:11)
--- NOTE | 2020-12-03 10:32 | XRay Report ---
CLINICAL INFORMATION: f/u infiltrate COMPARISON: 11/16/2020 and 11/30/2020 FINDINGS: Moderate cardiomegaly is unchanged. Mediastinum is unremarkable. Marked diffuse mixed interstitial alveolar airspace disease throughout both lungs show slight improvement since comparison exam three days prior. There are no effusions. IMPRESSION: Diffuse infiltrates or edema throughout both lungs show slight improvement from exam three days. This may be due to edema from CHF, underlying ARDS pneumonia or noninfectious inflammatory process Interpreted and Authenticated by: Felipe Juarez 12/03/20
--- NOTE | 2020-12-03 10:58 | Discharge Summary ---
Discharge Provider Provider Patient information: Note initiated : 12/03/20 at 10:57 am Service Date, if different from initiated Date: [] Patient: Mouna Jorgensen 80 y/o F admitted on 11/23/20 for covid symptoms, hypoxia. Chief Complaint: [] Date of admission: 11/23/20 20:54 Discharge date: 12/06/20 Primary care physician: Zita Forde PA-C Consults: 11/23/20 Consult to Physician [CONS] Stat Comment: Consulting Provider: Trent Jeffers Reason For Exam: Physician to Consult Discharge Meds Discharge Medications Home Medications ascorbate calcium (vitamin C) 500 mg tablet 500 mg PO QDAY #90 tab 11/19/20 [Rx Confirmed 11/23/20 Last Taken Unknown] ferrous sulfate 325 mg (65 mg iron) tablet 325 mg PO QDAY #90 tab 11/19/20 [Rx Confirmed 11/23/20 Last Taken Unknown] lisinopril 2.5 mg PO DAILY #30 tab 12/03/20 [Rx Last Taken Unknown] COURSE Hospital Course Hospital course: History of present illness: Ms. Jorgensen is a 80 year old F with no significant prior medical history who presents to the ER with 3 weeks onset of worsening shortness of breath, malaise, weakness and loss of appetite. Patient had a short of Covid vaccine 3 weeks ago and following that she has noticed increasing malaise and a gradual decline in general functionality. 2 weeks prior to presentation started experiencing exertional shortness of breath which has progressed very and even minimal activity would lead to dyspnea. She was evaluated at primary care physician's office with a CT chest that showed multifocal chest infiltrates. She was directed to the ER for further evaluation Initial work-up was consistent with hypoxia spray failure requiring 6 L oxygen. Patient was started on remdesivir/dexamethasone after Covid test was ordered. Hospitalist service was consulted At the time of my evaluation patient is alert and was able to answer most the questions. She denies hemoptysis/diarrhea, dysuria endorses to myalgia weakness and generalized malaise and loss of appetite. She denies dysuria, diarrhea, headache, neck stiffness or photophobia. 11/24-patient seen in room this morning. No overnight events. Looks a lot bet ter. Denies fever chills nausea vomiting. No additional concerns per nursing staff. Down from 6 to 3 L oxygen this morning. No overnight telemetry events. Afebrile. On remdesivir/dexamethasone. Covid PCR pending. Continue contact precaution. 11/25-patient doing well. Improved shortness of breath. T-max 99.4. White count 10.4 Covid negative. Remdesivir discontinued. Continuing antibiotics for pneumonia. On 5 L oxygen. 11/26-patient required up to 8 L oxygen yesterday however down to 2.5 this morning. Feels a lot better. On antibiotic coverage. Continue therapies. White count 9.7, echocardiogram results pending. Continuing dietary intervention. Transfer to medical floor today. 11/27-patient profoundly hypoxic requiring 9 L oxygen and desaturates with minimal exertion or even conversation. Start diuresis. Await echocardiogram. Continuing antibiotic coverage including azithromycin/Rocephin. 11/28-patient responding to treatment. Echocardiogram preserved EF 55%. Grade 2 diastolic dysfunction. Currently on 5 L oxygen. Dropped down to mid 50s on minimal exertion. Continue empiric antibiotic coverage. Continue therapies as tolerated. Continue gentle diuresis/interval imaging 11/29-patient seen in room. On 3 L oxygen. Desaturates during exertion requiring fires oxygen. Does not qualify for home oxygen per RT. Continuing antibiotic coverage. Remarkable improvement in 48 hours with gradual weaning oxygen. Feels a lot better. Able to talk in full sentences. Anticipate discharge in 48 hours once able to wean off oxygen. Continue daily therapy/nutrition support/antibiotic coverage. White count 7.5 11/30-patient clinically improving. Now on 2 L oxygen. Overnight on 3 L. Minimal desaturation on exertion. Feels a lot better. Echocardiogram EF 55%. On antibiotic coverage. Anticipate discharge in 24 hours. Per RT does not qualify for home oxygen at this time. 12/01 patient on 5 L O2. Frequently desaturates. Continue to antibiotic cover age. Worsening bilateral chest infiltrates on interval imaging. No clinical improvement since previous day 12/02-patient continues to be on 4 to 5 L oxygen. Responding well to steroids. Antibiotics day 03/21 DC in 24 hours. No overnight fever chills. Doing well. Tolerating diet. Ongoing physical therapy but desats to mid 60s to 70s on exertion. 12/03 On 2 L nasal cannula. Denies any shortness of breath or cough. Poor sleep. Does have diarrhea. hold stool softener 12/04 This morning patient found to be quite hypoxic and required a nonrebreather actually placing on on high flow Chest x-ray still consistent with ARDS. She did not particularly feel short of breath. diarrhea improved 12/05 Now down to 1 L while at rest or when she exerts oxygen drops 70's. She feels her shortness of breath is improved especially past couple days. No cough. 12/06 Doing better, is on half liter of oxygen in bed. Requires 3-4 with exertion. Feeling better. No new complaints. A: *Acute hypoxic respiratory failure w/ARDS: -Echocardiogram EF 55% with severe concentric LVH/diastolic dysfunction. *Multifocal pneumonia community: acquired versus viral. -flu/covid/rvp neg *ARDS: slowly improving -PaO2/FiO2 65 yesterday and today is 218 *possible acute on chronic Diastolic (II) CHF: -diuresis with lasix but did not change breathing status -Concentric LVH on echo, EF 55%. *Bronchiectasis: *Protein calorie malnutrition/generalized weakness: with BMI 18 on presentation Discharge diagnosis: Acute hypoxic respiratory pneumonia, ARDS, CHF, Bronchiectasis Secondary discharge diagnosis: malnutrition Time Spent with Patient Time attestation: Total time spent providing and/or coordinating discharge services: Time spent: Greater than 30 minutes EXAM Constitutional Vitals: Temp Pulse Resp BP Pulse Ox 97.4 F 52 L 18 113/53 90 12/03/20 08:00 12/03/20 08:00 12/03/20 08:00 12/03/20 08:00 12/03/20 08:00 Discharge Data Data Completed and Pending Labs on day of discharge: Labs from last 24 hours 12/03/20 10:49 Sodium Pending Potassium Pending Chloride Pending Carbon Dioxide Pending Anion Gap Pending BUN Pending Creatinine Pending GFR Calculation Pending Glucose Pending Uric Acid Pending Calcium Pending Phosphorus Pending Magnesium Pending Total Bilirubin Pending Direct Bilirubin Pending GGT Pending AST Pending ALT Pending Alkaline Phosphatase Pending Lactate Dehydrogenase Pending NT-Pro-B Natriuret Pep Pending Total Protein Pending Albumin Pending Globulin Pending Albumin/Globulin Ratio Pending Triglycerides Pending Discharge Plan Patient/Caregiver Discharge Instructions Activity: increase activity as tolerated Diet: Regular Diet Activity Restrictions/Additional Instructions: referral to see Pulmonology 5-10 days. Continue to wean oxygen down or off if able. Prescriptions: New lisinopril 2.5 mg Tablet 2.5 mg PO DAILY Qty: 30 RF: 0 Continued ferrous sulfate [Feosol] 325 mg (65 mg iron) tablet 325 mg PO QDAY Qty: 90 RF: 1 ascorbate calcium (vitamin C) 500 mg tablet 500 mg PO QDAY Qty: 90 RF: 1 Follow Up Plan Follow up with: Zita Forde PA-C [Primary Care Provider] - Patient Disposition: Xfer SNF Prognosis: Fair Rehab Potential: Undetermined I certify that the patient requires SNF services: Yes Overall status at discharge: patient is progressing back to baseline Discharge Orders: Discharge Order (Routine); Ordered 12/06/20 [facility]/Pulmonary Embolism Present on Admission: No
[2020-12-03 11:56] LABS: ALT/SGPT 6 U/L (<40); AST/SGOT 29 U/L (<32); Albumin 3.8 gm/dL (3.2-5.2); Albumin/Globulin Ratio 1.2 (1.0-2.3); Alkaline Phosphatase 46 U/L (39-117); Bilirubin,Direct < 0.2 mg/dL (0-0.3); Bilirubin,Total < 0.2 mg/dL (0.1-1.0); Blood Urea Nitrogen 21 mg/dL (8-23); Calcium 9.9 mg/dL (8.6-10.4); Carbon Dioxide 40 mmol/L (22-30); Chloride 90 mmol/L (96-108); Globulin 3.3 gm/dL (2.2-3.7); Glomerular Filtration Rate 69; Glucose 90 mg/dL (70-105); Lactate Dehydrogenase 339 U/L (135-225); Phosphorous 2.5 mg/dL (2.5-4.5); Triglycerides 131 mg/dL (<150); Uric Acid 4.4 mg/dL (2.5-8.0); proBNP 253.4 pg/mL (<450.0)
[2020-12-03] MEDS ORDERED: 0.9 % SODIUM CHLORIDE 400 ML IV ONE (12:56)
[2020-12-03] MEDS ORDERED: MELATONIN 3 MG TABLET PO SCH (21:00)
[2020-12-03] MEDS ORDERED: diphenhydrAMINE 25 MG CAPSULE PO PRN (21:00)
[2020-12-04] MEDS: 0.9 % SODIUM CHLORIDE 10 ML SYRINGE IV SCH ×3 (05:52→21:41)
[2020-12-04 08:31] LABS: Blood Urea Nitrogen 23 mg/dL (8-23); Calcium 9.4 mg/dL (8.6-10.4); Carbon Dioxide 40 mmol/L (22-30); Chloride 94 mmol/L (96-108); Glomerular Filtration Rate 81; Glucose 69 mg/dL (70-105)
[2020-12-04] MEDS ORDERED: ENOXAPARIN 30 MG/0.3 ML SYRINGE SQ SCH (09:00)
[2020-12-04] MEDS: MULTIVIT,THER IRON,CA,FA & MIN 1 TABLET PO SCH (09:45)
[2020-12-04] MEDS: LISINOPRIL 2.5 MG TABLET PO SCH (09:46)
[2020-12-04] MEDS: ASCORBIC ACID 500 MG TABLET PO SCH (09:46)
[2020-12-04] MEDS: FERROUS SULFATE 325 MG TABLET PO SCH (09:49)
--- NOTE | 2020-12-04 09:54 | XRay Report ---
CLINICAL INFORMATION: Hypoxia COMPARISON: None. FINDINGS: Moderate cardiomegaly is unchanged. Mediastinum is unremarkable. Marked diffuse mixed interstitial alveolar airspace disease throughout both lungs show slight improvement since comparison exam yesterday. There are no effusions. IMPRESSION: Diffuse infiltrates or edema throughout both lungs show slight improvement from exam yesterday. This may be due to edema from CHF, underlying ARDS, pneumonia or noninfectious inflammatory process Interpreted and Authenticated by: Felipe Juarez 12/04/20
--- NOTE | 2020-12-04 10:53 | Internal Med Progress Note ---
SUBJECTIVE Subjective Patient information: Note initiated : 12/04/20 at 10:43 am Service Date, if different from initiated Date: [] Patient: Mouna Jorgensen 80 y/o F admitted on 11/23/20 for covid symptoms, hypoxia. Chief Complaint: [] Interval history: History of present illness: Ms. Jorgensen is a 80 year old F with no significant prior medical history who presents to the ER with 3 weeks onset of worsening shortness of breath, malaise, weakness and loss of appetite. Patient had a short of Covid vaccine 3 weeks ago and following that she has noticed increasing malaise and a gradual decline in general functionality. 2 weeks prior to presentation started experiencing exertional shortness of breath which has progressed very and even minimal activity would lead to dyspnea. She was evaluated at primary care physician's office with a CT chest that showed multifocal chest infiltrates. She was directed to the ER for further evaluation Initial work-up was consistent with hypoxia spray failure requiring 6 L oxygen. Patient was started on remdesivir/dexamethasone after Covid test was ordered. Hospitalist service was consulted At the time of my evaluation patient is alert and was able to answer most the questions. She denies hemoptysis/diarrhea, dysuria endorses to myalgia weakness and generalized malaise and loss of appetite. She denies dysuria, diarrhea, headache, neck stiffness or photophobia. 11/24-patient seen in room this morning. No overnight events. Looks a lot better. Denies fever chills nausea vomiting. No additional concerns per nursing staff. Down from 6 to 3 L oxygen this morning. No overnight telemetry events. Afebrile. On remdesivir/dexamethasone. Covid PCR pending. Continue contact precaution. 11/25-patient doing well. Improved shortness of breath. T-max 99.4. White count 10.4 Covid negative. Remdesivir discontinued. Continuing antibiotics for pneumonia. On 5 L oxygen. 11/26-patient required up to 8 L oxygen yesterday however down to 2.5 this morning. Feels a lot better. On antibiotic coverage. Continue therapies. White count 9.7, echocardiogram results pending. Continuing dietary intervention. Transfer to medical floor today. 11/27-patient profoundly hypoxic requiring 9 L oxygen and desaturates with minimal exertion or even conversation. Start diuresis. Await echocardiogram. Continuing antibiotic coverage including azithromycin/Rocephin. 11/28-patient responding to treatment. Echocardiogram preserved EF 55%. Grade 2 diastolic dysfunction. Currently on 5 L oxygen. Dropped down to mid 50s on minimal exertion. Continue empiric antibiotic coverage. Continue therapies as tolerated. Continue gentle diuresis/interval imaging 11/29-patient seen in room. On 3 L oxygen. Desaturates during exertion requiring fires oxygen. Does not qualify for home oxygen per RT. Continuing antibiotic coverage. Remarkable improvement in 48 hours with gradual weaning oxygen. Feels a lot better. Able to talk in full sentences. Anticipate discharge in 48 hours once able to wean off oxygen. Continue daily therapy/nutrition support/antibiotic coverage. White count 7.5 11/30-patient clinically improving. Now on 2 L oxygen. Overnight on 3 L. Minimal desaturation on exertion. Feels a lot better. Echocardiogram EF 55%. On antibiotic coverage. Anticipate discharge in 24 hours. Per RT does not qualify for home oxygen at this time. 12/01 patient on 5 L O2. Frequently desaturates. Continue to antibiotic coverage. Worsening bilateral chest infiltrates on interval imaging. No clinical improvement since previous day 12/02-patient continues to be on 4 to 5 L oxygen. Responding well to steroids. Antibiotics day 03/21 DC in 24 hours. No overnight fever chills. Doing well. Tolerating diet. Ongoing physical therapy but desats to mid 60s to 70s on exerti on. 12/03 On 2 L nasal cannula. Denies any shortness of breath or cough. Poor sleep. Does have diarrhea. hold stool softener 12/04 This morning patient found to be quite hypoxic and required a nonrebreather actually placing on on high flow Chest x-ray still consistent with ARDS. She did not particularly feel short of breath. Review of Systems: denies headache/fever/chills/nausea/vomiting/chest or abdominal pain. Otherwise see above. Constitutional Vitals: Vital Signs Temp Pulse Resp BP Pulse Ox 97.5 F 51 L 22 103/53 96 12/04/20 07:15 12/04/20 07:15 12/04/20 07:50 12/04/20 07:15 12/04/20 08:00 Period Temp Pulse Resp BP Sys/Landeros Pulse Ox Last 24 Hr 97.3 F-98.6 F 46-51 18- 103-124/46-62 74-97 Intake and Output 12/03/20 12/04/20 12/04/20 21:59 05:59 13:59 Intake Total 520 0 Output Total 276 150 Balance 244 -150 Weight 46.629 kg Intake & Output: Intake & Output 12/03/20 12/04/20 12/04/20 21:59 05:59 13:59 Intake Total 520 0 Output Total 276 150 Balance 244 -150 Weight 46.629 kg Intake: IV 400 Sodium Chloride 0.9% 400 ml @ 400 75 mls/hr IV .[id number] ONE Rx#: [id number] Oral 120 0 Output: Void Amount 275 150 # of times incontinent of urine 1 Other: Meal Dinner Percent of Meal Consumed 100% Urine Appearance Clear Clear Urine Color Bright Yellow Bright Yellow Exam: General: Alert, Awake, No acute Distress Eyes/N/T: EOMI, Head/Neck: neck supple, CV: RRR, No murmurs, Pulm: mild fine rales bibase, no wheezing Abd: soft, nontender, +BS x4 Ext: no clubbing/cyanosis/edema Neuro: Alert, no focal deficits, moves all extremities, Skin: warm/dry OBJ DATA Labs CBC & Chem 7: 11/28/20 05:22 12/04/20 05:27 Labs: Abnormal Lab Results 12/04/20 12/03/20 05:27 10:49 Chloride 94 L 90 L Carbon Dioxide 40 H 40 H Anion Gap 7.0 L Glucose 69 L Lactate Dehydrogenase 339 H Meds: Medications Acetaminophen (Acetaminophen 325 Mg Tablet) 650 mg PO Q4-6HP PRN; Protocol PRN Reason: Per Pain Protocol/Fever > 101 Albuterol Sulfate (Albuterol Sulfate 200 Puff Inhaler) 1 - 2 puff INH Q4HP PRN PRN Reason: Shortness Of Breath Albuterol/Ipratropium (Ipratropium/Albuterol 3 Ml Ampul.Neb) 3 ml NEB Q4HP PRN PRN Reason: Shortness Of Breath Ascorbic Acid (Ascorbic Acid 500 Mg Tablet) 500 mg PO DAILY PAT Last Admin: 12/04/20 09:46 Dose: 500 mg Documented by: Diphenhydramine HCl (Diphenhydramine 25 Mg Capsule) 25 mg PO HSP PRN PRN Reason: Insomnia Enoxaparin Sodium (Enoxaparin 30 Mg/0.3 Ml Syringe) 30 mg SQ DAILY [facility] Last Admin: 12/04/20 08:54 Dose: 30 mg Documented by: Ferrous Sulfate (Ferrous Sulfate 325 Mg Tablet) 325 mg PO QDAY [facility] Last Admin: 12/04/20 09:49 Dose: 325 mg Documented by: Guaifenesin/Codeine Phosphate (Guaifenesin/Codeine 10 Ml Udc) 10 ml PO Q4HP PRN PRN Reason: Cough Acetaminophen (Ofirmev) 650 mg in 65 mls @ 130 mls/hr IV Q6HP PRN; Protocol PRN Reason: Per Pain Protocol/Fever > 101 Magnesium Sulfate (Magnesium Sulfate) 2 gm in 50 mls @ 50 mls/hr IV UD PRN PRN Reason: MG = or < 1.7 Potassium Chloride 40 meq/ (Dextrose) 520 mls @ 130 mls/hr IV UD PRN PRN Reason: K+ = or < 3.5 Iron Carb/Multivit/Glascock/Folic Acid (Multivit,Ther Iron,Ca,Fa & Min 1 Tablet) 1 tab PO DAILY [facility] Last Admin: 12/04/20 09:45 Dose: 1 tab Documented by: Lisinopril (Lisinopril 2.5 Mg Tablet) 2.5 mg PO DAILY [facility] Last Admin: 12/04/20 09:46 Dose: Not Given Documented by: Melatonin (Melatonin 3 Mg Tablet) 3 mg PO HSP [facility] Ondansetron HCl (Ondansetron 4 Mg Odt Tablet) 4 mg SL Q4-6HP PRN; Protocol PRN Reason: Nausea And Vomiting Ondansetron HCl (Ondansetron 4 Mg/2 Ml Vial) 4 mg IV Q4-6HP PRN; Protocol PRN Reason: Nausea And Vomiting Potassium Chloride (Potassium Chloride 20 Meq Packet) 40 meq PO DAILYP PRN PRN Reason: K+ < 3.5 Potassium/Phosphorus/Sodium (Neutra Phos 1 Packet) 2 packet PO DAILY PRN PRN Reason: PHOS <2.5 Sodium Chloride (0.9 % Sodium Chloride 10 Ml Syringe) 10 ml IV Q8 [facility] Last Admin: 12/04/20 05:52 Dose: 10 ml Documented by: ABG Interpretation ABG results: 11/23/20 17:17 ABG Methemoglobin 0.3 L VBG pH 7.43 VBG pCO2 44.6 VBG pO2 41.1 VBG HCO3 28.9 VBG Total CO2 30.3 VBG O2 Saturation 67.6 VBG Base Excess 4 H A/P Narrative A/P Narrative: A: *Acute hypoxic respiratory failure w/ARDS: secondary to multifocal pneumonia -Echocardiogram EF 55% with severe concentric LVH/diastolic dysfunction. -was on 1.5L NC yesterday but this morning became hypoxic and placed on NRB now high-flow O2 *Multifocal pneumonia community: acquired versus viral. -flu/covid/rvp neg *ARDS: slowly improving -PaO2/FiO2 65 today *possible acute on chronic Diastolic (II) CHF: -diuresis with lasix but did not change breathing status -Concentric LVH on echo, EF 55%. *Bronchiectasis: *Protein calorie malnutrition/generalized weakness: with BMI 18 on presentation *Diarrhea: stop stool softeners, pending fecal wbc Plan: -Wean oxygen as tolerated, prn ABG -abx d/c tomorrow -pending SC -stop diuresis -hold low-dose CAROLE inhibitor -RT to assess for home O2 upon eventual d/c -PT OT nutrition support -ppx: Heparin Time Spent With Patient Time: Total time spent is greater than 50% in coordination of care (as documented) at patient's floor/unit and/or counseling patient: [facility] VTE Deep Vein Thrombosis/Pulmonary Embolism Present on Admission: No
[2020-12-04] MEDS ORDERED: diphenhydrAMINE 25 MG CAPSULE PO PRN (11:13)
[2020-12-04] MEDS ORDERED: ACETAMINOPHEN 650 MG/65 ML BAG IV PRN (11:13)
[2020-12-04] MEDS ORDERED: ONDANSETRON 4 MG ODT TABLET SL PRN (11:13)
[2020-12-04] MEDS ORDERED: POTASSIUM CHLORIDE 40 MEQ in DEXTROSE 5% IN WATER 500 ML IV PRN (11:13)
[2020-12-04] MEDS ORDERED: MAGNESIUM SULFATE 2 GM/50 ML BAG IV PRN (11:13)
[2020-12-04] MEDS ORDERED: IPRATROPIUM/ALBUTEROL 3 ML AMPUL.NEB NEB PRN (11:13)
[2020-12-04] MEDS ORDERED: NEUTRA PHOS 1 PACKET PO PRN (11:13)
[2020-12-04] MEDS ORDERED: ALBUTEROL SULFATE 200 PUFF INHALER INH PRN (11:13)
[2020-12-04] MEDS ORDERED: guaiFENesin/CODEINE 10 ML UDC PO PRN (11:13)
[2020-12-04] MEDS ORDERED: POTASSIUM CHLORIDE 20 MEQ PACKET PO PRN (11:13)
[2020-12-04] MEDS ORDERED: ACETAMINOPHEN 325 MG TABLET PO PRN (11:13)
[2020-12-04] MEDS ORDERED: MELATONIN 3 MG TABLET PO SCH (11:13)
[2020-12-04] MEDS ORDERED: ONDANSETRON 4 MG/2 ML VIAL IV PRN (11:13)
[2020-12-04 13:37] LABS: Basophils # (Auto) 0.04 K/mcL (0.00-0.20); Basophils % (Auto) 0.5 % (0.0-2.0); Eosinophils # (Auto) 0.61 K/mcL (0.00-0.70); Eosinophils % (Auto) 7.8 % (0.0-7.0); Hemoglobin 10.1 g/dL (12.0-15.0); Lymphocytes # (Auto) 0.79 K/mcL (1.50-4.80); Lymphocytes % (Auto) 10.1 % (15.0-49.0); Mean Cell Volume 100.9 fL (80.0-100.0); Mean Corpuscular HGB Conc 31.6 g/dL (31.0-36.0); Mean Platelet Volume 10.3 fL (7.4-10.4); Monocytes # (Auto) 0.57 K/mcL (0.10-0.90); Monocytes % (Auto) 7.3 % (1.0-12.0); Neutrophils % (Auto) 74.3 % (38.0-78.0); Platelet Count 289 K/mcL (140-440); RBC 3.17 M/mcL (4.00-5.20); Red Cell Distribution Width 14.8 % (11.5-14.5); WBC 7.9 K/mcL (4.5-11.0)
[2020-12-04] MEDS ORDERED: 0.9 % SODIUM CHLORIDE 500 ML IV ONE (14:44)
[2020-12-05] MEDS: 0.9 % SODIUM CHLORIDE 10 ML SYRINGE IV SCH ×3 (05:27→20:54)
--- NOTE | 2020-12-05 08:00 | Internal Med Progress Note ---
SUBJECTIVE Subjective Patient information: Note initiated : 12/05/20 at 7:57 am Service Date, if different from initiated Date: [] Patient: Mouna Jorgensen 80 y/o F admitted on 11/23/20 for covid symptoms, hypoxia. Chief Complaint: [] Interval history: History of present illness: Ms. Jorgensen is a 80 year old F with no significant prior medical history who presents to the ER with 3 weeks onset of worsening shortness of breath, malaise, weakness and loss of appetite. Patient had a short of Covid vaccine 3 weeks ago and following that she has noticed increasing malaise and a gradual decline in general functionality. 2 weeks prior to presentation started experiencing exertional shortness of breath which has progressed very and even minimal activity would lead to dyspnea. She was evaluated at primary care physician's office with a CT chest that showed multifocal chest infiltrates. She was directed to the ER for further evaluation Initial work-up was consistent with hypoxia spray failure requiring 6 L oxygen. Patient was started on remdesivir/dexamethasone after Covid test was ordered. Hospitalist service was consulted At the time of my evaluation patient is alert and was able to answer most the questions. She denies hemoptysis/diarrhea, dysuria endorses to myalgia weakness and generalized malaise and loss of appetite. She denies dysuria, diarrhea, headache, neck stiffness or photophobia. 11/24-patient seen in room this morning. No overnight events. Looks a lot better. Denies fever chills nausea vomiting. No additional concerns per nursing staff. Down from 6 to 3 L oxygen this morning. No overnight telemetry events. Afebrile. On remdesivir/dexamethasone. Covid PCR pending. Continue contact precaution. 11/25-patient doing well. Improved shortness of breath. T-max 99.4. White count 10.4 Covid negative. Remdesivir discontinued. Continuing antibiotics for pneumonia. On 5 L oxygen. 11/26-patient required up to 8 L oxygen yesterday however down to 2.5 this morning. Feels a lot better. On antibiotic coverage. Continue therapies. White count 9.7, echocardiogram results pending. Continuing dietary intervention. Transfer to medical floor today. 11/27-patient profoundly hypoxic requiring 9 L oxygen and desaturates with minimal exertion or even conversation. Start diuresis. Await echocardiogram. Continuing antibiotic coverage including azithromycin/Rocephin. 11/28-patient responding to treatment. Echocardiogram preserved EF 55%. Grade 2 diastolic dysfunction. Currently on 5 L oxygen. Dropped down to mid 50s on minimal exertion. Continue empiric antibiotic coverage. Continue therapies as tolerated. Continue gentle diuresis/interval imaging 11/29-patient seen in room. On 3 L oxygen. Desaturates during exertion requiring fires oxygen. Does not qualify for home oxygen per RT. Continuing antibiotic coverage. Remarkable improvement in 48 hours with gradual weaning oxygen. Feels a lot better. Able to talk in full sentences. Anticipate discharge in 48 hours once able to wean off oxygen. Continue daily therapy/nutrition support/antibiotic coverage. White count 7.5 11/30-patient clinically improving. Now on 2 L oxygen. Overnight on 3 L. Minimal desaturation on exertion. Feels a lot better. Echocardiogram EF 55%. On antibiotic coverage. Anticipate discharge in 24 hours. Per RT does not qualify for home oxygen at this time. 12/01 patient on 5 L O2. Frequently desaturates. Continue to antibiotic coverage. Worsening bilateral chest infiltrates on interval imaging. No clinical improvement since previous day 12/02-patient continues to be on 4 to 5 L oxygen. Responding well to steroids. Antibiotics day 03/21 DC in 24 hours. No overnight fever chills. Doing well. Tolerating diet. Ongoing physical therapy but desats to mid 60s to 70s on exertion. 12/03 On 2 L nasal cannula. Denies any shortness of breath or cough. Poor sleep. Does have diarrhea. hold stool softener 12/04 This morning patient found to be quite hypoxic and required a nonrebreather actually placing on on high flow Chest x-ray still consistent with ARDS. She did not particularly feel short of breath. diarrhea improved 12/05 Now down to 1 L while at rest or when she exerts oxygen drops 70's. She feels her shortness of breath is improved especially past couple days. No cough. Review of Systems: denies headache/fever/chills/nausea/vomiting/chest or abdominal pain. Otherwise see above. Constitutional Vitals: Vital Signs Temp Pulse Resp BP Pulse Ox 98.4 F 43 L 19 113/45 91 12/05/20 04:01 12/05/20 06:11 12/05/20 06:11 12/05/20 06:11 12/05/20 07:13 Period Temp Pulse Resp BP Sys/Landeros Pulse Ox Last 24 Hr 97.6 F-98.7 F 43-115 14-25 76-147/36-63 91-100 Intake and Output 12/04/20 12/05/20 12/05/20 21:59 05:59 13:59 Intake Total 500 180 Output Total 100 450 Balance 400 -270 Weight 47.718 kg Intake & Output: Intake & Output 12/04/20 12/05/20 12/05/20 21:59 05:59 13:59 Intake Total 500 180 Output Total 100 450 Balance 400 -270 Weight 47.718 kg Intake: IV 500 Sodium Chloride 0.9% 500 ml @ 500 Wide Open IV BOLUS ONE Rx#: [id number] Oral 180 Output: Void Amount 100 450 Other: Urine Appearance Clear Clear Urine Color Dark Yellow Dark Yellow Exam: General: Alert, Awake, No acute Distress Eyes/N/T: EOMI, Head/Neck: neck supple, CV: RRR, No murmurs, Pulm: fine rales b/l, no wheezing Abd: soft, nontender, +BS x4 Ext: no clubbing/cyanosis/edema Neuro: Alert, no focal deficits, moves all extremities, Skin: warm/dry OBJ DATA Labs CBC & Chem 7: 12/04/20 12:25 12/05/20 06:08 Labs: Abnormal Lab Results 12/04/20 12/04/20 12/03/20 12:25 05:27 10:49 RBC 3.17 L Hgb 10.1 L Hct 32.0 L MCV 100.9 H RDW 14.8 H Lymph % (Auto) 10.1 L Eos % (Auto) 7.8 H Lymph # (Auto) 0.79 L Chloride 94 L 90 L Carbon Dioxide 40 H 40 H Anion Gap 7.0 L Glucose 69 L Lactate Dehydrogenase 339 H Meds: Medications Acetaminophen (Acetaminophen 325 Mg Tablet) 650 mg PO Q4-6HP PRN; Protocol PRN Reason: Per Pain Protocol/Fever > 101 Albuterol Sulfate (Albuterol Sulfate 200 Puff Inhaler) 1 - 2 puff INH Q4HP PRN PRN Reason: Shortness Of Breath Albuterol/Ipratropium (Ipratropium/Albuterol 3 Ml Ampul.Neb) 3 ml NEB Q4HP PRN PRN Reason: Shortness Of Breath Ascorbic Acid (Ascorbic Acid 500 Mg Tablet) 500 mg PO DAILY PAT Diphenhydramine HCl (Diphenhydramine 25 Mg Capsule) 25 mg PO HSP PRN PRN Reason: Insomnia Enoxaparin Sodium (Enoxaparin 30 Mg/0.3 Ml Syringe) 30 mg SQ DAILY [facility] Ferrous Sulfate (Ferrous Sulfate 325 Mg Tablet) 325 mg PO QDAY [facility] Guaifenesin/Codeine Phosphate (Guaifenesin/Codeine 10 Ml Udc) 10 ml PO Q4HP PRN PRN Reason: Cough Acetaminophen (Ofirmev) 650 mg in 65 mls @ 130 mls/hr IV Q6HP PRN; Protocol PRN Reason: Per Pain Protocol/Fever > 101 Magnesium Sulfate (Magnesium Sulfate) 2 gm in 50 mls @ 50 mls/hr IV UD PRN PRN Reason: MG = or < 1.7 Potassium Chloride 40 meq/ (Dextrose) 520 mls @ 130 mls/hr IV UD PRN PRN Reason: K+ = or < 3.5 Iron Carb/Multivit/Drop Forger Helper/Folic Acid (Multivit,Ther Iron,Ca,Fa & Min 1 Tablet) 1 tab PO DAILY [facility] Melatonin (Melatonin 3 Mg Tablet) 3 mg PO HSP PAT Ondansetron HCl (Ondansetron 4 Mg Odt Tablet) 4 mg SL Q4-6HP PRN; Protocol PRN Reason: Nausea And Vomiting Ondansetron HCl (Ondansetron 4 Mg/2 Ml Vial) 4 mg IV Q4-6HP PRN; Protocol PRN Reason: Nausea And Vomiting Potassium Chloride (Potassium Chloride 20 Meq Packet) 40 meq PO DAILYP PRN PRN Reason: K+ < 3.5 Potassium/Phosphorus/Sodium (Neutra Phos 1 Packet) 2 packet PO DAILY PRN PRN Reason: PHOS <2.5 Sodium Chloride (0.9 % Sodium Chloride 10 Ml Syringe) 10 ml IV Q8 [facility] Last Admin: 12/05/20 05:27 Dose: 10 ml Documented by: ABG Interpretation ABG results: 11/23/20 17:17 ABG Methemoglobin 0.3 L VBG pH 7.43 VBG pCO2 44.6 VBG pO2 41.1 VBG HCO3 28.9 VBG Total CO2 30.3 VBG O2 Saturation 67.6 VBG Base Excess 4 H A/P Narrative A/P Narrative: A: *Acute hypoxic respiratory failure w/ARDS: secondary to multifocal pneumonia -Echocardiogram EF 55% with severe concentric LVH/diastolic dysfunction. -back down to 1-2L NC from High flow *Multifocal pneumonia community: acquired versus viral. -flu/covid/rvp neg *ARDS: slowly improving -PaO2/FiO2 65 yesterday and today is 218 *possible acute on chronic Diastolic (II) CHF: -diuresis with lasix but did not change breathing status -Concentric LVH on echo, EF 55%. *Bronchiectasis: *Protein calorie malnutrition/generalized weakness: with BMI 18 on presentation *Diarrhea: stop stool softeners, pending fecal wbc -improed Plan: -Wean oxygen as tolerated, prn ABG -abx d/c'd -pending SC -hold low-dose CAROLE inhibitor -RT to assess for home O2 upon eventual d/c -PT OT nutrition support -CM for placement -RT for home O2 -ppx: Heparin Time Spent With Patient Time: Total time spent is greater than 50% in coordination of care (as documented) at patient's floor/unit and/or counseling patient: QUALITY VTE Deep Vein Thrombosis/Pulmonary Embolism Present on Admission: No
[2020-12-05 08:04] LABS: ALT/SGPT < 5 U/L (<40); AST/SGOT 26 U/L (<32); Albumin 3.2 gm/dL (3.2-5.2); Alkaline Phosphatase 40 U/L (39-117); Bilirubin,Direct < 0.2 mg/dL (0-0.3); Bilirubin,Total 0.2 mg/dL (0.1-1.0); Blood Urea Nitrogen 22 mg/dL (8-23); Calcium 9.3 mg/dL (8.6-10.4); Carbon Dioxide 39 mmol/L (22-30); Chloride 96 mmol/L (96-108); Globulin 3.1 gm/dL (2.2-3.7); Glomerular Filtration Rate 81; Glucose 72 mg/dL (70-105); Lactate Dehydrogenase 306 U/L (135-225); Phosphorous 3.2 mg/dL (2.5-4.5); Triglycerides 109 mg/dL (<150); Uric Acid 3.6 mg/dL (2.5-8.0)
[2020-12-05] MEDS: MULTIVIT,THER IRON,CA,FA & MIN 1 TABLET PO SCH (08:53)
[2020-12-05] MEDS: ASCORBIC ACID 500 MG TABLET PO SCH (08:53)
[2020-12-05] MEDS: ENOXAPARIN 30 MG/0.3 ML SYRINGE SQ SCH (08:53)
[2020-12-05] MEDS: FERROUS SULFATE 325 MG TABLET PO SCH (08:59)
[2020-12-05] MEDS ORDERED: predniSONE 20 MG TABLET PO ONE (11:28)
[2020-12-05] MEDS: IPRATROPIUM/ALBUTEROL 3 ML AMPUL.NEB NEB SCH ×2 (11:33→20:30)
--- NOTE | 2020-12-05 12:48 | Cat Scan Report ---
CLINICAL INFORMATION: Follow-up infiltrates COMPARISON: Chest CT less than two weeks prior 11/23/2020 TECHNIQUE: 0.625 mm axial slices were obtained from the lung apices through the bases without intravenous contrast. 2.5 mm Sagittal, coronal and axial reformatted images were processed and reviewed at bone, lung and soft tissue windows. 7 mm axial MIP images were also reconstructed to optimize pulmonary nodule detection.The exam was performed using radiation dose optimization techniques including, but not limited to, automated exposure control, adjustment of the mA and/or kV according to patient size and use of iterative reconstruction technique. FINDINGS: Pulmonary parenchymal windows again show moderate chronic bronchitis with elevated lung volumes. Extensive tubular bronchiectasis involving the lobar, segmental and subsegmental bronchi - most prominent in the lower lobes and right upper lobe. Mild atelectasis in the left upper and right middle lobes is again seen. Diffuse bilateral alveolar infiltrates show improved aeration when compared to the prior exam. There are no effusions. Mediastinal windows show the ascending thoracic aorta measures the upper limits of normal in diameter 3.9 cm. The remaining thoracic aorta is normal. The central pulmonary arteries are normal diameter - 2.7 cm. Heart is moderately enlarged. Small pericardial effusion shows a slight increase. Mildly enlarged lymph nodes the lower mediastinum including the carinal subcarinal hilar region are unchanged and compatible with benign reactive adenopathy. Esophagus is grossly normal. The thyroid is unremarkable. Bones and soft tissues the chest wall show no abnormality. Images for abdomen show 3-4 small stones in the gallbladder neck. The visualized kidneys, adrenal glands spleen pancreas and liver are normal. IMPRESSION: 1. Diffuse bilateral alveolar infiltrates in both lungs shows moderate improvement and aeration when compared to the prior CT less than two weeks ago. Differential diagnosis includes aspiration, infection and ARDS. 2. Bronchitis with moderate tubular bronchiectasis in the lobar segmental and subsegmental bronchi of both lungs - most severe in the lower lobes and right upper lobe. This would predispose to infection. 3. Mild ectasia ascending thoracic aorta, but no evidence of fredo aneurysm. 4. Mild adenopathy in the lower mediastinum and hilum compatible with reactive adenopathy - no change 5. Cholelithiasis. Interpreted and Authenticated by: Felipe Juarez 12/05/20
[2020-12-06] MEDS: 0.9 % SODIUM CHLORIDE 10 ML SYRINGE IV SCH (05:20)
[2020-12-06] MEDS ORDERED: IPRATROPIUM/ALBUTEROL 3 ML AMPUL.NEB NEB SCH (07:00)
[2020-12-06] MEDS ORDERED: predniSONE 20 MG TABLET PO ONE (07:21)
[2020-12-06] MEDS: FERROUS SULFATE 325 MG TABLET PO SCH (09:02)
[2020-12-06] MEDS: ASCORBIC ACID 500 MG TABLET PO SCH (09:02)
[2020-12-06] MEDS: MULTIVIT,THER IRON,CA,FA & MIN 1 TABLET PO SCH (09:03)
[2020-12-06] MEDS: ENOXAPARIN 30 MG/0.3 ML SYRINGE SQ SCH (09:03)
== END 2020-12-06 13:10 | DRG 189 ==
LOC: ED 16:35 → ICU 20:54 → MEDSUR 11-26 14:50 → ICU 12-04 08:14
PROVIDERS: ADMIT Internal Medicine; ATTEND Internal Medicine

== ENCOUNTER 2022-10-31 09:39 | Inpatient (IN) ==
[2022-10-31] MEDS ORDERED: IOPAMIDOL 100 ML BOTTLE IV ONE (09:40)
[2022-10-31 10:02] LABS: POC Calcium, Ionized 1.18 (1.16-1.32); POC Creatinine 0.8 (0.6-1.2); POC Potassium 4.2 (3.3-5.1)
--- NOTE | 2022-10-31 10:47 | Cat Scan Report ---
CLINICAL INFORMATION: Acute mental status change COMPARISON: None. TECHNIQUE: 2.5 mm helical slices were obtained in the skull base to vertex. Following reconstruction, axial reformatted images were reviewed at bone and parenchymal windows. The exam was performed using radiation dose optimization techniques including, but not limited to, automated exposure control, adjustment of the mA and/or kV according to patient size and use of iterative reconstruction technique. FINDINGS: The ventricles, sulci, fissures, and cisterns are symmetrically enlarged compatible with mild age-related atrophy. No extra-axial fluid collections are identified. Mild patchy chronic ischemic changes, in the deep cerebral white matter, are expected for age. There is no hemorrhage, mass effect, or edema. Bone windows show no osseous abnormality. IMPRESSION: Mild atrophy and chronic ischemic changes in the deep cerebral white matter-expected for age. No acute findings Moderate left mastoiditis. Interpreted and Authenticated by: Felipe Juarez 10/31/22
[2022-10-31 11:33] LABS: Basophils # (Auto) 0.03 K/mcL (0.00-0.30); Basophils % (Auto) 0.5 % (0.0-2.0); Eosinophils # (Auto) 0.51 K/mcL (0.00-0.70); Eosinophils % (Auto) 8.5 % (0.0-7.0); Hematocrit 35.6 % (34.1-44.9); Hemoglobin 11.1 g/dL (11.2-15.7); Lymphocytes # (Auto) 0.63 K/mcL (1.50-4.80); Lymphocytes % (Auto) 10.4 % (15.5-49.0); Mean Cell Volume 101.7 fL (80.0-100.0); Mean Corpuscular HGB Conc 31.2 g/dL (31.0-36.0); Mean Platelet Volume 9.7 fL (8.8-12.5); Monocytes # (Auto) 0.33 K/mcL (0.10-0.90); Monocytes % (Auto) 5.5 % (1.0-12.0); Neutrophils % (Auto) 74.8 % (38.0-78.0); Platelet Count 268 K/mcL (140-440); Red Cell Distribution Width 14.7 % (11.5-14.5)
[2022-10-31 12:13] LABS: proBNP 262.9 pg/mL (<450.0)
[2022-10-31 12:25] LABS: Thyroid Stimulating Hormone 36.61 uIU/mL (0.27-5.01)
[2022-10-31 12:27] LABS: ALT/SGPT < 5 U/L (<40); AST/SGOT 22 U/L (<32); Albumin 3.6 gm/dL (3.2-5.2); Alkaline Phosphatase 47 U/L (39-117); Bilirubin,Direct < 0.2 mg/dL (0-0.3); Bilirubin,Total 0.3 mg/dL (0.1-1.0); Globulin 3.3 gm/dL (2.2-3.7)
--- NOTE | 2022-10-31 12:27 | XRay Report ---
CLINICAL INFORMATION: Dyspnea COMPARISON: 02/13/2021. TECHNIQUE: Portable FINDINGS: Moderate cardiomegaly show slight increase. Mediastinum is unremarkable. The pulmonary vessels are now markedly congested and there is marked peribronchial vascular edema throughout both lungs. No effusions. No definite infiltrates. IMPRESSION: Severe congestive heart failure Interpreted and Authenticated by: Felipe Juarez 10/31/22
--- NOTE | 2022-10-31 13:13 | Emergency Department Note ---
Dizziness HPI General Chief Complaint: Dizziness Stated Complaint: "vertigo" Time Seen by Provider: 10/31/22 09:43 Source: patient Mode of arrival: ambulatory Limitations: no limitations History of Present Illness HPI Narrative: Narrative: Patient presents to the emergency department with complaints of primarily dizziness. Initially it was triaged as vertigo history from patient and her is a little bit difficult to nail down. The patient does seem slightly confused and the says that she does get confused this has progressively been going on for the last several months. It was noted in triage that patient was hypoxic however the patient denies any complaints of chest pain or shortness of breath. Patient denies any productive cough lower extremity edema. When asked if the patient feels like she is going to pass out or if it feels like the room is spinning she states both. Related Data Allergies Allergy/AdvReac Type Severity Reaction Status Date / Time No Known Drug Allergies Allergy Verified 10/31/22 16:53 Review of Systems ROS ROS Narrative: Narrative: All systems ED: reviewed and negative except as stated. PFSH Narrative Patient History Narrative: Narrative: Medical/Surgical/Family History All Active Problems (Updated 10/31/22 @ 17:42 by Arnav Ayala MD) Hypoxemia (Acute) HTN (hypertension) (Chronic) Medicare annual wellness visit, initial (Acute) Hypothyroidism (Chronic) (HFpEF) heart failure with preserved ejection fraction (Acute) COPD (chronic obstructive pulmonary disease) (Chronic) Hypoxia (Chronic) Viral pneumonia (Acute) Elevated TSH (Acute) Bilateral pulmonary infiltrates on chest x-ray (Acute) Memory impairment (Acute) Low oxygen saturation (Acute) Depression (Acute) Encounter for post surgical wound check (Acute) Cellulitis of left hand (Acute) Sprain of collateral ligament of right knee (Acute) Closed fracture of tibial plateau (Acute) Medical History Cellulitis of left hand Encounter for post surgical wound check Medicare annual wellness visit, initial Surgical History H/O heart surgery (~1963) Family History Father , age 55 Lung cancer, Onset Age: 55 smoker Social History Smoking Status: Never smoker Alcohol Intake Frequency: does not drink Substance Use: does not use Exam Narrative Narrative: Narrative: Vital signs noted General: Awake. Alert. No distress. HEENT: NCAT PERRL EOMI. No conjunctivitis. Membranes moist. Neck: Supple, trachea midline Cardiovascular: RRR. No murmur. No rubs. No gallops. Respiratory: No respiratory distress. Scattered rhonchi throughout Gastrointestinal: Soft. No tenderness Musculoskeletal: No pain. No soft tissue swelling. Good ROM. No signs injury Skin: Warm. Dry. No rash Neurologic: Alert and oriented x2 moves all extremities equally and fully, speech is fluent face is symmetric General Limitations: no limitations Course Vital Signs Vital signs: Vital Signs Temperature 97.9 F 10/31/22 09:39 Pulse Rate 67 10/31/22 09:39 Respiratory Rate 16 10/31/22 09:39 Pulse Oximetry (%) 62 L 10/31/22 09:39 Oxygen Delivery Method Room Air 10/31/22 09:39 Temperature 98.3 F 10/31/22 16:10 Pulse Rate 86 10/31/22 16:31 Respiratory Rate 16 10/31/22 16:10 Blood Pressure 136/69 10/31/22 16:31 Pulse Oximetry (%) 90 10/31/22 17:04 Oxygen Delivery Method Nasal Cannula 10/31/22 17:00 Oxygen Flow Rate (L/min) 2 10/31/22 17:00 [facility] MDM Narrative Medical decision making narrative: Narrative: Patient presents to the emergency department with complaints of dizziness. Although not listed in her chart does appear that there is some possible dementia and her corroborates the story. Patient is well-appearing she has a nonfocal neurologic exam she was noted to be hypoxic. Venous blood gas does not show significant CO2 retention. Her CBC is without evidence of leukocytosis, chemistry is grossly noncontributory. Urinalysis without evidence of infection. Chest x-ray shows diffuse infiltrates versus interstitial lung disease per my interpretation. CT scan was performed it does look to be concerning for possible interstitial lung disease. I have spoke with the hospitalist who is agreeable to admit the patient he did asked that I speak with the bodybuilder, I spoke with Dr. Sanders at [place] who reviewed patient's imaging was concern for interstitial lung disease. Recommended getting autoantibody panel, CAROLE levels, RAST test along with starting the patient on Solu-Medrol 250 mg dose for 3 days then tapering with 60 mg of prednisone decreasing to 10 mg/week and prescribing Bactrim prophylaxis. He also recommended getting echo. Patient requires 1 to 2 L of oxygen at baseline with exertion become significantly hypoxic. Lab Data 10/31/22 10:44 Labs: Lab Results 10/31/22 10/31/22 10/31/22 Range/Units 09:58 09:59 10:20 WBC (4.5-11.0) K/mcL RBC (3.59-5.38) M/mcL Hgb (11.2-15.7) g/dL Hct (34.1-44.9) % POC Hct 35.0 L (36-48) MCV (80.0-100.0) fL MCH (26.0-34.0) pg MCHC (31.0-36.0) g/dL RDW (11.5-14.5) % Plt Count (140-440) K/mcL MPV (8.8-12.5) fL Immature Gran % (Auto) (0.0-0.5) % Neut % (Auto) (38.0-78.0) % Lymph % (Auto) (15.5-49.0) % Nobles % (Auto) (1.0-12.0) % Eos % (Auto) (0.0-7.0) % Baso % (Auto) (0.0-2.0) % Lymph # (Auto) (1.50-4.80) K/mcL Nobles # (Auto) (0.10-0.90) K/mcL Eos # (Auto) (0.00-0.70) K/mcL Baso # (Auto) (0.00-0.30) K/mcL Seg Neutrophils % (38-78) % Band Neutrophils % (0-10) % Lymphocytes % (15-49) % Monocytes % (Manual) (1-12) % Eosinophils % (Manual) (0-7) % Immature Gran # (0.00-0.05) K/mcl Absolute Neutrophils (1.80-8.00) K/mcL Platelet Estimate (Normal) RBC Morphology (Normal) Hypochromasia (None Seen) Anisocytosis (None Seen) Macrocytosis (None Seen) ESR (0-30) mm/hr POC pH (7.35-7.45) POC pCO2 (35-45) mmHg POC pO2 (80-100) mmHg POC HCO3 (22-26) mmHg POC ABG Base Excess (-2-3) ABG Lactic Acid (0.5-2) POC VBG pH 7.44 H (7.32-7.42) POC VBG pCO2 at Temp 48.5 (41-51) POC VBG pO2 27 (25-40) POC VBG HCO3 33.0 H (24-28) POC VBG Total CO2 34.0 H (25-29) POC Venous O2 Sat 52.0 (40-70) POC VBG Base Excess 9.0 H* (-2-2) VBG Lactic Acid 1.4 (0.5-2) Hgb O2 Saturation (94-97) POC Sodium 141 (133-145) POC Potassium 4.2 (3.3-5.1) POC Chloride 101 (96-108) POC Total CO2 33.0 H (22-30) POC BUN 25 H (6-20) POC Creatinine 0.8 (0.6-1.2) POC Glucose 137 H (70-105) POC WB Ioniz Calcium 1.18 (1.16-1.32) Total Bilirubin (0.1-1.0) mg/dL Direct Bilirubin (0-0.3) mg/dL AST (<32) U/L ALT (<40) U/L Alkaline Phosphatase (39-117) U/L C-Reactive Protein (0.03-0.80) mg/dL NT-Pro-B Natriuret Pep (<450.0) pg/mL Total Protein (5.9-8.4) gm/dL Albumin (3.2-5.2) gm/dL Globulin (2.2-3.7) gm/dL Procalcitonin (<0.10) ng/mL TSH (0.27-5.01) uIU/mL Free T4 (0.93-1.70) ng/dL Urine Color Urine Appearance (Clear) Urine pH (5.0-9.0) Ur Specific [place] (1.000-1.035) Urine Protein (Negative) mg/dL Urine Glucose (UA) (Negative) mg/dL Urine Ketones (Negative) mg/dL Urine Occult Blood (Negative) mg/dL Urine Nitrate (Negative) Urine Bilirubin (Negative) mg/dL Urine Urobilinogen mg/dL Ur Leukocyte Esterase (Negative) /uL Urine RBC (0-3) /hpf Urine WBC (0-4) /hpf Ur Squamous Epith Cells (0-4) /hpf Calcium Oxalate Crystal (None) /hpf Urine Bacteria (0) /hpf Urine Mucus (None) /hpf Ur Culture Indicated? POC Troponin I < 0.02 (0.00-0.08) 10/31/22 10/31/22 10/31/22 Range/Units 10:44 10:44 10:44 WBC 6.0 (4.5-11.0) K/mcL RBC 3.50 L (3.59-5.38) M/mcL Hgb 11.1 L (11.2-15.7) g/dL Hct 35.6 (34.1-44.9) % POC Hct (36-48) MCV 101.7 H (80.0-100.0) fL MCH 31.7 (26.0-34.0) pg MCHC 31.2 (31.0-36.0) g/dL RDW 14.7 H (11.5-14.5) % Plt Count 268 (140-440) K/mcL MPV 9.7 (8.8-12.5) fL Immature Gran % (Auto) 0.3 (0.0-0.5) % Neut % (Auto) 74.8 (38.0-78.0) % Lymph % (Auto) 10.4 L (15.5-49.0) % Nobles % (Auto) 5.5 (1.0-12.0) % Eos % (Auto) 8.5 H (0.0-7.0) % Baso % (Auto) 0.5 (0.0-2.0) % Lymph # (Auto) 0.63 L (1.50-4.80) K/mcL Nobles # (Auto) 0.33 (0.10-0.90) K/mcL Eos # (Auto) 0.51 (0.00-0.70) K/mcL Baso # (Auto) 0.03 (0.00-0.30) K/mcL Seg Neutrophils % (38-78) % Band Neutrophils % (0-10) % Lymphocytes % (15-49) % Monocytes % (Manual) (1-12) % Eosinophils % (Manual) (0-7) % Immature Gran # 0.02 (0.00-0.05) K/mcl Absolute Neutrophils 4.51 (1.80-8.00) K/mcL Platelet Estimate (Normal) RBC Morphology (Normal) Hypochromasia (None Seen) Anisocytosis (None Seen) Macrocytosis (None Seen) ESR (0-30) mm/hr POC pH (7.35-7.45) POC pCO2 (35-45) mmHg POC pO2 (80-100) mmHg POC HCO3 (22-26) mmHg POC ABG Base Excess (-2-3) ABG Lactic Acid (0.5-2) POC VBG pH (7.32-7.42) POC VBG pCO2 at Temp (41-51) POC VBG pO2 (25-40) POC VBG HCO3 (24-28) POC VBG Total CO2 (25-29) POC Venous O2 Sat (40-70) POC VBG Base Excess (-2-2) VBG Lactic Acid (0.5-2) Hgb O2 Saturation (94-97) POC Sodium (133-145) POC Potassium (3.3-5.1) POC Chloride (96-108) POC Total CO2 (22-30) POC BUN (6-20) POC Creatinine (0.6-1.2) POC Glucose (70-105) POC WB Ioniz Calcium (1.16-1.32) Total Bilirubin 0.3 (0.1-1.0) mg/dL Direct Bilirubin < 0.2 (0-0.3) mg/dL AST 22 (<32) U/L ALT < 5 (<40) U/L Alkaline Phosphatase 47 (39-117) U/L C-Reactive Protein (0.03-0.80) mg/dL NT-Pro-B Natriuret Pep 262.9 (<450.0) pg/mL Total Protein 6.9 (5.9-8.4) gm/dL Albumin 3.6 (3.2-5.2) gm/dL Globulin 3.3 (2.2-3.7) gm/dL Procalcitonin 0.12 H (<0.10) ng/mL TSH 36.61 H (0.27-5.01) uIU/mL Free T4 (0.93-1.70) ng/dL Urine Color Urine Appearance (Clear) Urine pH (5.0-9.0) Ur Specific [place] (1.000-1.035) Urine Protein (Negative) mg/dL Urine Glucose (UA) (Negative) mg/dL Urine Ketones (Negative) mg/dL Urine Occult Blood (Negative) mg/dL Urine Nitrate (Negative) Urine Bilirubin (Negative) mg/dL Urine Urobilinogen mg/dL Ur Leukocyte Esterase (Negative) /uL Urine RBC (0-3) /hpf Urine WBC (0-4) /hpf Ur Squamous Epith Cells (0-4) /hpf Calcium Oxalate Crystal (None) /hpf Urine Bacteria (0) /hpf Urine Mucus (None) /hpf Ur Culture Indicated? POC Troponin I (0.00-0.08) 10/31/22 10/31/22 10/31/22 Range/Units 10:45 10:45 10:45 WBC (4.5-11.0) K/mcL RBC (3.59-5.38) M/mcL Hgb (11.2-15.7) g/dL Hct (34.1-44.9) % POC Hct (36-48) MCV (80.0-100.0) fL MCH (26.0-34.0) pg MCHC (31.0-36.0) g/dL RDW (11.5-14.5) % Plt Count (140-440) K/mcL MPV (8.8-12.5) fL Immature Gran % (Auto) (0.0-0.5) % Neut % (Auto) (38.0-78.0) % Lymph % (Auto) (15.5-49.0) % Nobles % (Auto) (1.0-12.0) % Eos % (Auto) (0.0-7.0) % Baso % (Auto) (0.0-2.0) % Lymph # (Auto) (1.50-4.80) K/mcL Nobles # (Auto) (0.10-0.90) K/mcL Eos # (Auto) (0.00-0.70) K/mcL Baso # (Auto) (0.00-0.30) K/mcL Seg Neutrophils % 75 (38-78) % Band Neutrophils % 1 (0-10) % Lymphocytes % 15 (15-49) % Monocytes % (Manual) 4 (1-12) % Eosinophils % (Manual) 5 (0-7) % Immature Gran # (0.00-0.05) K/mcl Absolute Neutrophils (1.80-8.00) K/mcL Platelet Estimate Normal (Normal) RBC Morphology Abnormal A (Normal) Hypochromasia 1+ A (None Seen) Anisocytosis Rare A (None Seen) Macrocytosis 1+ A (None Seen) ESR 43 H (0-30) mm/hr POC pH (7.35-7.45) POC pCO2 (35-45) mmHg POC pO2 (80-100) mmHg POC HCO3 (22-26) mmHg POC ABG Base Excess (-2-3) ABG Lactic Acid (0.5-2) POC VBG pH (7.32-7.42) POC VBG pCO2 at Temp (41-51) POC VBG pO2 (25-40) POC VBG HCO3 (24-28) POC VBG Total CO2 (25-29) POC Venous O2 Sat (40-70) POC VBG Base Excess (-2-2) VBG Lactic Acid (0.5-2) Hgb O2 Saturation (94-97) POC Sodium (133-145) POC Potassium (3.3-5.1) POC Chloride (96-108) POC Total CO2 (22-30) POC BUN (6-20) POC Creatinine (0.6-1.2) POC Glucose (70-105) POC WB Ioniz Calcium (1.16-1.32) Total Bilirubin (0.1-1.0) mg/dL Direct Bilirubin (0-0.3) mg/dL AST (<32) U/L ALT (<40) U/L Alkaline Phosphatase (39-117) U/L C-Reactive Protein (0.03-0.80) mg/dL NT-Pro-B Natriuret Pep (<450.0) pg/mL Total Protein (5.9-8.4) gm/dL Albumin (3.2-5.2) gm/dL Globulin (2.2-3.7) gm/dL Procalcitonin (<0.10) ng/mL TSH (0.27-5.01) uIU/mL Free T4 < 0.10 L (0.93-1.70) ng/dL Urine Color Urine Appearance (Clear) Urine pH (5.0-9.0) Ur Specific [place] (1.000-1.035) Urine Protein (Negative) mg/dL Urine Glucose (UA) (Negative) mg/dL Urine Ketones (Negative) mg/dL Urine Occult Blood (Negative) mg/dL Urine Nitrate (Negative) Urine Bilirubin (Negative) mg/dL Urine Urobilinogen mg/dL Ur Leukocyte Esterase (Negative) /uL Urine RBC (0-3) /hpf Urine WBC (0-4) /hpf Ur Squamous Epith Cells (0-4) /hpf Calcium Oxalate Crystal (None) /hpf Urine Bacteria (0) /hpf Urine Mucus (None) /hpf Ur Culture Indicated? POC Troponin I (0.00-0.08) 10/31/22 10/31/22 10/31/22 Range/Units 10:45 12:47 13:57 WBC (4.5-11.0) K/mcL RBC (3.59-5.38) M/mcL Hgb (11.2-15.7) g/dL Hct (34.1-44.9) % POC Hct (36-48) MCV (80.0-100.0) fL MCH (26.0-34.0) pg MCHC (31.0-36.0) g/dL RDW (11.5-14.5) % Plt Count (140-440) K/mcL MPV (8.8-12.5) fL Immature Gran % (Auto) (0.0-0.5) % Neut % (Auto) (38.0-78.0) % Lymph % (Auto) (15.5-49.0) % Nobles % (Auto) (1.0-12.0) % Eos % (Auto) (0.0-7.0) % Baso % (Auto) (0.0-2.0) % Lymph # (Auto) (1.50-4.80) K/mcL Nobles # (Auto) (0.10-0.90) K/mcL Eos # (Auto) (0.00-0.70) K/mcL Baso # (Auto) (0.00-0.30) K/mcL Seg Neutrophils % (38-78) % Band Neutrophils % (0-10) % Lymphocytes % (15-49) % Monocytes % (Manual) (1-12) % Eosinophils % (Manual) (0-7) % Immature Gran # (0.00-0.05) K/mcl Absolute Neutrophils (1.80-8.00) K/mcL Platelet Estimate (Normal) RBC Morphology (Normal) Hypochromasia (None Seen) Anisocytosis (None Seen) Macrocytosis (None Seen) ESR (0-30) mm/hr POC pH 7.39 (7.35-7.45) POC pCO2 56.7 H* (35-45) mmHg POC pO2 53 L (80-100) mmHg POC HCO3 34.5 H (22-26) mmHg POC ABG Base Excess 10.0 H (-2-3) ABG Lactic Acid 0.4 L (0.5-2) POC VBG pH (7.32-7.42) POC VBG pCO2 at Temp (41-51) POC VBG pO2 (25-40) POC VBG HCO3 (24-28) POC VBG Total CO2 (25-29) POC Venous O2 Sat (40-70) POC VBG Base Excess (-2-2) VBG Lactic Acid (0.5-2) Hgb O2 Saturation 86.0 L (94-97) POC Sodium (133-145) POC Potassium (3.3-5.1) POC Chloride (96-108) POC Total CO2 36.0 H (22-30) POC BUN (6-20) POC Creatinine (0.6-1.2) POC Glucose (70-105) POC WB Ioniz Calcium (1.16-1.32) Total Bilirubin (0.1-1.0) mg/dL Direct Bilirubin (0-0.3) mg/dL AST (<32) U/L ALT (<40) U/L Alkaline Phosphatase (39-117) U/L C-Reactive Protein 1.60 H (0.03-0.80) mg/dL NT-Pro-B Natriuret Pep (<450.0) pg/mL Total Protein (5.9-8.4) gm/dL Albumin (3.2-5.2) gm/dL Globulin (2.2-3.7) gm/dL Procalcitonin (<0.10) ng/mL TSH (0.27-5.01) uIU/mL Free T4 (0.93-1.70) ng/dL Urine Color Yellow Urine Appearance Hazy A (Clear) Urine pH 5.0 (5.0-9.0) Ur Specific [place] 1.026 (1.000-1.035) Urine Protein 30 A (Negative) mg/dL Urine Glucose (UA) Negative (Negative) mg/dL Urine Ketones Negative (Negative) mg/dL Urine Occult Blood Negative (Negative) mg/dL Urine Nitrate Negative (Negative) Urine Bilirubin Negative (Negative) mg/dL Urine Urobilinogen 2.0 A mg/dL Ur Leukocyte Esterase 25 A (Negative) /uL Urine RBC 1 (0-3) /hpf Urine WBC 4 (0-4) /hpf Ur Squamous Epith Cells 3 (0-4) /hpf Calcium Oxalate Crystal Mod A (None) /hpf Urine Bacteria None (0) /hpf Urine Mucus Many A (None) /hpf Ur Culture Indicated? No POC Troponin I (0.00-0.08) ED POC Tests ED POC Tests: ALICJA - Influenza A Negative ALICJA - Influenza B Negative ALICJA - SARS Antigen Negative Discharge Plan Patient/Caregiver Discharge Instructions Pt seen by ADMINISTRATIVE OFFICER/PA only: No Clinical Impression: Hypoxemia Patient Disposition: Xfer As Inpt ([facility]) Discharge Date/Time: 10/31/22 15:50
--- NOTE | 2022-10-31 13:38 | Internal Med History&Physical ---
HPI History of Present Illness Patient information: Note initiated : 10/31/22 at 1:37 pm Service Date, if different from initiated Date: [] Patient: Mouna Jorgensen 82 y/o F admitted on for "vertigo". Chief Complaint: [] History of present illness: Ms. Jorgensen is a 82 year old F Patient presented today for dizziness and lightheadedness. Found to be hypoxic in 60's in triage, when asked if she is short of breath she told triage nurse that she sometimes is short of breath. She denied cough in the ER but admitted it to me. Patient seems to be quite a poor historian. But does believe she came to the ER because of weakness and falling. Patient says that she has had shortness of breath for couple months as well as a dry cough. She thinks she had a stroke several months ago when she developed drooling on the right side of her mouth. Patient has acid reflux/pyrosis occasionally but not frequently. She does admit to falling recently as well. Her states that she eats poorly and this has been worsening over the past year. A CT of the brain in the ED showed no old infarcts, just chronic ischemic changes. Work-up in the ED was unremarkable for obvious bacterial pneumonia or heart failure. When I discussed with the patient the possible etiology of aspiration pneumonitis she thought aspiration was high likelihood even though when I asked her if she coughed when she ate or drink or if food and drink ever went down the wrong pipe she said no. No leukocytosis or fever in the ED. Manual differential pending. Procalcitonin low. BNP low. PaO2 is 53 on room air. Chest x-ray with diffuse bilateral infiltrates, CTA of the chest with large patchy diffuse infiltrates to both lungs concerning for an interstitial lung disease process. Chronic bronchitis and tubular bronchiectasis also noted in both lungs upper and lower. Case was discussed with [place] licensed land surveyor who recommended work-up for autoimmune and connective tissue disease process. Reviewed images and felt probably an interstitial lung disease and recommended high-dose steroids 1gm/day for 3 days followed by taper. TSH was quite elevated and she did admit to not taking her medications 3 to 4 months ago. Review of Systems: Pertinent positives above. Denies headache/fever/chills/nausea/vomiting/chest or abdominal pain/diarrhea. Remaining 10 point review of system reviewed negative PHYSICAL EXAM: General: Alert, Awake, No acute Distress, cachectic Eyes/N/T: EOMI, no scleral icterus, PERRL, dry MM Head/Neck: neck supple, full ROM, normocephalic atraumatic, no jvd CV: Mildly bradycardic but regular, 2/6SM, normal s1/s2 Pulm: fine rales b/l, no wheezing, no respiratory distress Abd: soft, nontender, +BS x4 Ext: no clubbing/cyanosis/edema, nontender Neuro: Alert, no focal deficits, moves all extremities, CN 2-12 grossly intact, sensations intact b/l upper/lower Psychiatric: Skin: warm/dry, normal color PFSH PFSH All Active Problems (Updated 01/16/22 @ 09:29 by Zita Forde PA-C) HTN (hypertension) (Chronic) Medicare annual wellness visit, initial (Acute) Hypothyroidism (Chronic) (HFpEF) heart failure with preserved ejection fraction (Acute) COPD (chronic obstructive pulmonary disease) (Chronic) Hypoxia (Chronic) Viral pneumonia (Acute) Elevated TSH (Acute) Bilateral pulmonary infiltrates on chest x-ray (Acute) Memory impairment (Acute) Low oxygen saturation (Acute) Depression (Acute) Encounter for post surgical wound check (Acute) Cellulitis of left hand (Acute) Sprain of collateral ligament of right knee (Acute) Closed fracture of tibial plateau (Acute) Medical History Cellulitis of left hand Encounter for post surgical wound check Medicare annual wellness visit, initial Surgical History H/O heart surgery (~1963) Family History Father , age 55 Lung cancer, Onset Age: 55 smoker Social History adopted: No caregiver/support person: No foster care: No household members: spouse lives independently: Yes marital status: education level: college smoking status: Never smoker alcohol intake frequency: does not drink substance use type: does not use MEDS/ALLERGIES Home Medications and Allergies Home Medications Medication Instructions Recorded Confirmed Type levothyroxine 50 mcg tablet 50 mcg PO QDAY #90 tabs 01/14/22 01/14/22 Rx lisinopril 5 mg tablet 5 mg PO QDAY #90 tabs 01/14/22 01/14/22 Rx Allergies Allergy/AdvReac Type Severity Reaction Status Date / Time No Known Drug Allergies Allergy Verified 01/14/22 10:48 EXAM Constitutional Vitals: Temp Pulse Resp BP Pulse Ox O2 Del Method O2 Flow Rate 97.9 F 50 L 18 116/56 96 Nasal Cannula 1 10/31/22 09:39 10/31/22 13:31 10/31/22 13:31 10/31/22 13:31 10/31/22 13:31 10/31/22 13:31 10/31/22 13:31 DATA Data Completed and Pending Labs: Labs from last 24 hours 10/31/22 10/31/22 10/31/22 12:47 10:44 10:44 WBC RBC Hgb Hct POC Hct MCV MCH MCHC RDW Plt Count MPV Immature Gran % (Auto) Neut % (Auto) Lymph % (Auto) [place] % (Auto) Eos % (Auto) Baso % (Auto) Lymph # (Auto) [place] # (Auto) Eos # (Auto) Baso # (Auto) Immature Gran # Absolute Neutrophils POC VBG pH POC VBG pCO2 at Temp POC VBG pO2 POC VBG HCO3 POC VBG Total CO2 POC Venous O2 Sat POC VBG Base Excess VBG Lactic Acid POC Sodium POC Potassium POC Chloride POC Total CO2 POC BUN POC Creatinine POC Glucose POC WB Ioniz Calcium Total Bilirubin 0.3 Direct Bilirubin < 0.2 AST 22 ALT < 5 Alkaline Phosphatase 47 NT-Pro-B Natriuret Pep 262.9 Total Protein 6.9 Albumin 3.6 Globulin 3.3 Procalcitonin 0.12 H TSH 36.61 H Urine Color Pending Urine Appearance Pending Urine pH Pending Ur Specific [place] Pending Urine Protein Pending Urine Glucose (UA) Pending Urine Ketones Pending Urine Occult Blood Pending Urine Nitrate Pending Urine Bilirubin Pending Urine Urobilinogen Pending Ur Leukocyte Esterase Pending POC Troponin I Pending 10/31/22 10/31/22 10/31/22 10:44 10:20 09:59 WBC 6.0 RBC 3.50 L Hgb 11.1 L Hct 35.6 POC Hct MCV 101.7 H MCH 31.7 MCHC 31.2 RDW 14.7 H Plt Count 268 MPV 9.7 Immature Gran % (Auto) 0.3 Neut % (Auto) 74.8 Lymph % (Auto) 10.4 L [place] % (Auto) 5.5 Eos % (Auto) 8.5 H Baso % (Auto) 0.5 Lymph # (Auto) 0.63 L [place] # (Auto) 0.33 Eos # (Auto) 0.51 Baso # (Auto) 0.03 Immature Gran # 0.02 Absolute Neutrophils 4.51 POC VBG pH 7.44 H POC VBG pCO2 at Temp 48.5 POC VBG pO2 27 POC VBG HCO3 33.0 H POC VBG Total CO2 34.0 H POC Venous O2 Sat 52.0 POC VBG Base Excess 9.0 H* VBG Lactic Acid 1.4 POC Sodium POC Potassium POC Chloride POC Total CO2 POC BUN POC Creatinine POC Glucose POC WB Ioniz Calcium Total Bilirubin Direct Bilirubin AST ALT Alkaline Phosphatase NT-Pro-B Natriuret Pep Total Protein Albumin Globulin Procalcitonin TSH Urine Color Urine Appearance Urine pH Ur Specific [place] Urine Protein Urine Glucose (UA) Urine Ketones Urine Occult Blood Urine Nitrate Urine Bilirubin Urine Urobilinogen Ur Leukocyte Esterase POC Troponin I < 0.02 10/31/22 09:58 WBC RBC Hgb Hct POC Hct 35.0 L MCV MCH MCHC RDW Plt Count MPV Immature Gran % (Auto) Neut % (Auto) Lymph % (Auto) [place] % (Auto) Eos % (Auto) Baso % (Auto) Lymph # (Auto) [place] # (Auto) Eos # (Auto) Baso # (Auto) Immature Gran # Absolute Neutrophils POC VBG pH POC VBG pCO2 at Temp POC VBG pO2 POC VBG HCO3 POC VBG Total CO2 POC Venous O2 Sat POC VBG Base Excess VBG Lactic Acid POC Sodium 141 POC Potassium 4.2 POC Chloride 101 POC Total CO2 33.0 H POC BUN 25 H POC Creatinine 0.8 POC Glucose 137 H POC WB Ioniz Calcium 1.18 Total Bilirubin Direct Bilirubin AST ALT Alkaline Phosphatase NT-Pro-B Natriuret Pep Total Protein Albumin Globulin Procalcitonin TSH Urine Color Urine Appearance Urine pH Ur Specific [place] Urine Protein Urine Glucose (UA) Urine Ketones Urine Occult Blood Urine Nitrate Urine Bilirubin Urine Urobilinogen Ur Leukocyte Esterase POC Troponin I A/P Narrative A/P Narrative: A: *Acute hypoxic respiratory failure w/ALI: -no features consistent with bacterial pna -no edema/jvd/bnp to suggest heart failure -flu/covid/rsv neg -suspect aspiration/gastric chemical pneumonitis w/ALI vs viral pna w/ALI superimposed on chronic injury -CTA *Encephalopathy: 2/2 above *h/o COPD(not on home O2) / Bronchiectasis (mod-sev): *h/o diastolic(II)CHF: *Severe protein calorie malnutrition: Fat and muscle loss *Generalized weakness/deconditioning/falling/failure to thrive: appetite continues to decline *Anemia, chronic *HTN: *Dementia: *Hypothyroidism: elevated tsh and low t4 d/t medication noncompliance * P: -O2 supp, wean -ABG -RVP -IS/Acapella, prn nebs, RT -monitor fluid balance, i/o, uop, -check esr/crp -autoimmune/vasculitis work up -ST eval -t4/tsh -Dietary consult -cont home ACEI -Home medication reconciliation -PT/OT -ppx: Lovenox / ppi Time Spent With Patient Time: Total time spent is greater than 50% in coordination of care (as documented) at patient's floor/unit and/or counseling patient: Initial: Total time with patient: 75 - 90 minutes
[2022-10-31 14:08] LABS: Appearance,Urine HAZY (Clear); Bilirubin,Urine Negative (Negative); Calcium Oxalate Crystals,Urine MOD /hpf; Color,Urine YELLOW; Culture Indicated,Urine No; Glucose,Urine (UA) Negative (Negative); Ketones,Urine Negative (Negative); Leukocyte Esterase,Urine 25 /uL (Negative); Mucus,Urine MANY /hpf; Nitrate,Urine Negative (Negative); Protein,Urine 30 mg/dL (Negative); Specific Gravity,Urine 1.026 (1.000-1.035); Urine Blood Negative (Negative); Urine RBC 1 /hpf (0-3); Urine Squamous Epithelial Cell 3 /hpf (0-4); Urine WBC 4 /hpf (0-4)
--- NOTE | 2022-10-31 15:16 | Cat Scan Report ---
CLINICAL INFORMATION: Hypoxia COMPARISON: None. TECHNIQUE: 80ml of Isovue-370 were injected intravenously. Using SmartPrep to maximize pulmonary artery opacification, .625mm helical slices were obtained from the lung apices through the lung bases. Following reconstruction, 2.5 mm sagittal, coronal, and axial reformations were processed. The exam was reviewed at mediastinal, lung, and bone windows. The exam was performed using radiation dose optimization techniques including, but not limited to, automated exposure control, adjustment of the mA and/or kV according to patient size and use of iterative reconstruction technique. FINDINGS: Pulmonary parenchymal windows show extensive patchy alveolar infiltrates throughout both lungs which has progressed or recurred from the comparison exam nearly 2 years prior 12/05/2020. Lung volumes are elevated with wall thickening/ dilatation of bronchi compatible with underlying chronic bronchitis. In addition, there is tubular and varicose bronchiectasis in the segmental and subsegmental bronchi of both upper lower and right middle lobes.. Pleural spaces are unremarkable-no effusions. Mediastinal windows show the heart is moderately enlarged slightly increased.. The central pulmonary arteries are enlarged main pulmonary diameter 3.3 cm compatible with pulmonary hypertension. Pulmonary arteries are well opacified no evidence of embolus. The noncontrast thoracic aorta is normal diameter. There is no adenopathy in the mediastinal hilar or axillary region. Esophagus is grossly normal. Thyroid is unremarkable. Bones and soft tissues the chest wall are normal. Images through the superior abdomen show diffuse small stones in the gallbladder.. IMPRESSION: 1. Large patchy infiltrates diffusely throughout both lungs which have progressed from the comparison exam nearly 2 years prior. While this likely represents recurrent infection or aspiration, other diagnostic possibilities for chronic or recurrent bilateral infiltrates should be entertained including hypersensitivity pneumonitis, organizing pneumonia, chronic eosinophilic pneumonia and NSIP. Suggest pulmonary consult. 2. No evidence of pulmonary embolus. Mild central pulmonary enlargement compatible with pulmonary hypertension 3. Chronic bronchitis with tubular bronchiectasis in the segmental and subsegmental bronchi of both upper, lower and right middle lobes. This would predispose to recurrent infection. 4. Lithiasis Interpreted and Authenticated by: Felipe Juarez 10/31/22
[2022-10-31 15:41] LABS: Anisocytosis RARE (None Seen); Band Neutrophils % 1 % (0-10); Eosinophils % (Manual) 5 % (0-7); Hypochromasia 1+ (None Seen); Lymphocytes % 15 % (15-49); Macrocytosis 1+ (None Seen); Monocytes % (Manual) 4 % (1-12); Platelet Estimate NORMAL (Normal); RBC Morphology ABNORMAL (Normal); Segmented Neutrophils % 75 % (38-78)
[2022-10-31 15:56] LABS: Free T4 (Free Thyroxine) < 0.10 ng/dL (0.93-1.70)
[2022-10-31] MEDS ORDERED: POTASSIUM CHLORIDE 20 MEQ TABLET PO PRN ×2 (16:10)
[2022-10-31] MEDS ORDERED: IPRATROPIUM/ALBUTEROL 3 ML AMPUL.NEB NEB PRN (16:10)
[2022-10-31] MEDS ORDERED: ACETAMINOPHEN 325 MG TABLET PO PRN (16:10)
[2022-10-31] MEDS ORDERED: POTASSIUM CHLORIDE 40 MEQ in DEXTROSE 5% IN WATER 500 ML IV PRN (16:10)
[2022-10-31] MEDS ORDERED: ONDANSETRON 4 MG/2 ML VIAL IV PRN (16:10)
[2022-10-31] MEDS ORDERED: PANTOPRAZOLE 40 MG VIAL IV SCH (16:10)
[2022-10-31] MEDS ORDERED: MAGNESIUM SULFATE 2 GM/50 ML BAG IV PRN (16:10)
[2022-10-31] MEDS ORDERED: POLYETHYLENE GLYCOL 3350 17 GM PACKET PO PRN (16:10)
[2022-10-31] MEDS: methylPREDNISolone SOD SUCC 125 MG/2 ML VIAL IV SCH ×2 (16:43→18:08)
[2022-10-31 18:01] LABS: Rheumatoid Factor < 10 IU/mL (<14)
[2022-10-31] MEDS: DOCUSATE SODIUM 100 MG CAPSULE PO SCH (21:34)
[2022-10-31] MEDS: 0.9 % SODIUM CHLORIDE 10 ML SYRINGE IV SCH (21:34)
[2022-10-31] MEDS: LEVOTHYROXINE 100 MCG VIAL IV SCH (22:22)
[2022-11-01] MEDS: methylPREDNISolone SOD SUCC 125 MG/2 ML VIAL IV SCH ×4 (01:30→17:41)
[2022-11-01] MEDS: 0.9 % SODIUM CHLORIDE 10 ML SYRINGE IV SCH ×3 (05:52→20:38)
[2022-11-01 06:29] LABS: Basophils # (Auto) 0.01 K/mcL (0.00-0.30); Basophils % (Auto) 0.2 % (0.0-2.0); Eosinophils # (Auto) 0 K/mcL (0.00-0.70); Eosinophils % (Auto) 0 % (0.0-7.0); Hematocrit 38.6 % (34.1-44.9); Hemoglobin 11.7 g/dL (11.2-15.7); Lymphocytes # (Auto) 0.59 K/mcL (1.50-4.80); Lymphocytes % (Auto) 9.4 % (15.5-49.0); Mean Cell Volume 103.8 fL (80.0-100.0); Mean Corpuscular HGB Conc 30.3 g/dL (31.0-36.0); Mean Platelet Volume 9.4 fL (8.8-12.5); Monocytes # (Auto) 0.04 K/mcL (0.10-0.90); Monocytes % (Auto) 0.6 % (1.0-12.0); Neutrophils % (Auto) 88.7 % (38.0-78.0); Platelet Count 265 K/mcL (140-440); RBC 3.72 M/mcL (3.59-5.38); Red Cell Distribution Width 14.8 % (11.5-14.5); WBC 6.3 K/mcL (4.5-11.0)
[2022-11-01 06:46] LABS: ALT/SGPT < 5 U/L (<40); AST/SGOT 22 U/L (<32); Albumin 3.5 gm/dL (3.2-5.2); Alkaline Phosphatase 52 U/L (39-117); Bilirubin,Direct < 0.2 mg/dL (0-0.3); Bilirubin,Total 0.2 mg/dL (0.1-1.0); Blood Urea Nitrogen 26 mg/dL (8-23); Calcium 9.2 mg/dL (8.6-10.4); Carbon Dioxide 33 mmol/L (22-30); Chloride 104 mmol/L (96-108); Globulin 3.6 gm/dL (2.2-3.7); Glomerular Filtration Rate 59; Glucose 140 mg/dL (70-105); Lactate Dehydrogenase 390 U/L (135-225); Phosphorous 5.5 mg/dL (2.5-4.5); Triglycerides 90 mg/dL (<150); Uric Acid 4.4 mg/dL (2.5-8.0)
[2022-11-01] MEDS ORDERED: LEVOTHYROXINE 50 MCG TABLET PO SCH (07:30)
[2022-11-01] MEDS: LEVOTHYROXINE 100 MCG VIAL IV SCH (07:36)
[2022-11-01] MEDS: PANTOPRAZOLE 40 MG VIAL IV SCH (07:37)
--- NOTE | 2022-11-01 07:43 | Internal Med Progress Note ---
SUBJECTIVE Subjective Patient information: Note initiated : 11/01/22 at 7:29 am Service Date, if different from initiated Date: [] Patient: Mouna Jorgensen 82 y/o F admitted on 10/31/22 for "vertigo". Chief Complaint: [] Interval history: History of present illness: Ms. Jorgensen is a 82 year old F Patient presented today for dizziness and lightheadedness. Found to be hypoxic in 60's in triage, when asked if she is short of breath she told triage nurse that she sometimes is short of breath. She denied cough in the ER but admitted it to me. Patient seems to be quite a poor historian. But does believe she came to the ER because of weakness and falling. Patient says that she has had shortness of breath for couple months as well as a dry cough. She thinks she had a stroke several months ago when she developed drooling on the right side of her mouth. Patient has acid reflux/pyrosis occasionally but not frequently. She does admit to falling recently as well. Her states that she eats poorly and this has been worsening over the past year. A CT of the brain in the ED showed no old infarcts, just chronic ischemic changes. Work-up in the ED was unremarkable for obvious bacterial pneumonia or heart failure. When I discussed with the patient the possible etiology of aspiration pneumonitis she thought aspiration was high likelihood even though when I asked her if she coughed when she ate or drink or if food and drink ever went down the wrong pipe she said no. No leukocytosis or fever in the ED. Manual differential pending. Procalcitonin low. BNP low. PaO2 is 53 on room air. Chest x-ray with diffuse bilateral infiltrates, CTA of the chest with large patchy diffuse infiltrates to both lungs concerning for an interstitial lung disease process. Chronic bronchitis and tubular bronchiectasis also noted in both lungs upper and lower. Case was discussed with [place] vamp liner who recommended work-up for autoimmune and connective tissue disease process. Reviewed images and felt probably an interstitial lung disease and recommended high-dose steroids 1gm/day for 3 days followed by taper. TSH was quite elevated and she did admit to not taking her medications 3 to 4 months ago. 11/01 Patient complains of weakness, dry mouth. Dry cough. Shortness of breath Patient required increasing oxygen needs while sleeping last night to the point where she needed CPAP. However while she is awake she requires very little oxygen, 1L. PHYSICAL EXAM: General: Alert, Awake, No acute Distress, cachectic Eyes/N/T: EOMI, no scleral icterus, periorbital edema Head/Neck: neck supple, full ROM, CV: Mildly bradycardic but regular, 2/6SM, Pulm: mild fine rales b/l, no wheezing, no respiratory distress Abd: soft, nontender, +BS x4 Ext: no clubbing/cyanosis/edema, nontender Neuro: Alert, no focal deficits, moves all extremities, sensations intact b/l upper/lower Psychiatric: Skin: warm/dry, normal color Constitutional Vitals: Vital Signs Temp Pulse Resp BP Pulse Ox O2 Del Method O2 Flow Rate 97.1 F 46 L 12 101/51 96 CPAP 3 11/01/22 04:39 11/01/22 05:00 11/01/22 05:00 11/01/22 04:39 11/01/22 05:00 11/01/22 04:39 10/31/22 22:01 Period Temp Pulse Resp BP Sys/[place] Pulse Ox O2 Del Method O2 Flow Rate Last 24 Hr 97.1 F-99.2 F 42-86 12-24 99-143/44-75 62-100 CPAP-Room Air 1-3 Intake and Output 10/31/22 11/01/22 11/01/22 19:59 03:59 11:59 Intake Total 100 Output Total 120 150 Balance -120 -50 Weight 41.816 kg 42.638 kg Intake & Output: Intake & Output 10/31/22 11/01/22 11/01/22 19:59 03:59 11:59 Intake Total 100 Output Total 120 150 Balance -120 -50 Weight 41.816 kg 42.638 kg Intake: Oral 100 Output: Void Amount 150 Urine/Stool Mix 120 Other: Meal Dinner Percent of Meal Consumed 75% Feeding Ability Independent Urine Appearance Clear Urine Color Dark Yellow Stool Size Small Small Stool Color Brown Brown Stool Consistency Formed Loose Watery OBJ DATA Labs 11/01/22 05:24 11/01/22 05:23 Labs: Abnormal Lab Results 11/01/22 11/01/22 10/31/22 05:24 05:23 13:57 RBC Hgb POC Hct MCV 103.8 H MCHC 30.3 L RDW 14.8 H Immature Gran % (Auto) 1.1 H Neut % (Auto) 88.7 H Lymph % (Auto) 9.4 L [place] % (Auto) 0.6 L Eos % (Auto) Lymph # (Auto) 0.59 L [place] # (Auto) 0.04 L Immature Gran # 0.07 H RBC Morphology Hypochromasia Anisocytosis Macrocytosis ESR POC pCO2 56.7 H* POC pO2 53 L POC HCO3 34.5 H POC ABG Base Excess 10.0 H ABG Lactic Acid 0.4 L POC VBG pH POC VBG HCO3 POC VBG Total CO2 POC VBG Base Excess Hgb O2 Saturation 86.0 L Carbon Dioxide 33 H POC Total CO2 36.0 H Anion Gap 6.0 L POC BUN BUN 26 H Glucose 140 H POC Glucose Phosphorus 5.5 H Lactate Dehydrogenase 390 H C-Reactive Protein Procalcitonin TSH Free T4 Urine Appearance Urine Protein Urine Urobilinogen Ur Leukocyte Esterase Calcium Oxalate Crystal Urine Mucus 10/31/22 10/31/22 10/31/22 12:47 10:45 10:45 RBC Hgb POC Hct MCV MCHC RDW Immature Gran % (Auto) Neut % (Auto) Lymph % (Auto) [place] % (Auto) Eos % (Auto) Lymph # (Auto) [place] # (Auto) Immature Gran # RBC Morphology Hypochromasia Anisocytosis Macrocytosis ESR 43 H POC pCO2 POC pO2 POC HCO3 POC ABG Base Excess ABG Lactic Acid POC VBG pH POC VBG HCO3 POC VBG Total CO2 POC VBG Base Excess Hgb O2 Saturation Carbon Dioxide POC Total CO2 Anion Gap POC BUN BUN Glucose POC Glucose Phosphorus Lactate Dehydrogenase C-Reactive Protein 1.60 H Procalcitonin TSH Free T4 Urine Appearance Hazy A Urine Protein 30 A Urine Urobilinogen 2.0 A Ur Leukocyte Esterase 25 A Calcium Oxalate Crystal Mod A Urine Mucus Many A 10/31/22 10/31/22 10/31/22 10:45 10:45 10:44 RBC Hgb POC Hct MCV MCHC RDW Immature Gran % (Auto) Neut % (Auto) Lymph % (Auto) [place] % (Auto) Eos % (Auto) Lymph # (Auto) [place] # (Auto) Immature Gran # RBC Morphology Abnormal A Hypochromasia 1+ A Anisocytosis Rare A Macrocytosis 1+ A ESR POC pCO2 POC pO2 POC HCO3 POC ABG Base Excess ABG Lactic Acid POC VBG pH POC VBG HCO3 POC VBG Total CO2 POC VBG Base Excess Hgb O2 Saturation Carbon Dioxide POC Total CO2 Anion Gap POC BUN BUN Glucose POC Glucose Phosphorus Lactate Dehydrogenase C-Reactive Protein Procalcitonin 0.12 H TSH Free T4 < 0.10 L Urine Appearance Urine Protein Urine Urobilinogen Ur Leukocyte Esterase Calcium Oxalate Crystal Urine Mucus 10/31/22 10/31/22 10/31/22 10:44 10:44 09:59 RBC 3.50 L Hgb 11.1 L POC Hct MCV 101.7 H MCHC RDW 14.7 H Immature Gran % (Auto) Neut % (Auto) Lymph % (Auto) 10.4 L [place] % (Auto) Eos % (Auto) 8.5 H Lymph # (Auto) 0.63 L [place] # (Auto) Immature Gran # RBC Morphology Hypochromasia Anisocytosis Macrocytosis ESR POC pCO2 POC pO2 POC HCO3 POC ABG Base Excess ABG Lactic Acid POC VBG pH 7.44 H POC VBG HCO3 33.0 H POC VBG Total CO2 34.0 H POC VBG Base Excess 9.0 H* Hgb O2 Saturation Carbon Dioxide POC Total CO2 Anion Gap POC BUN BUN Glucose POC Glucose Phosphorus Lactate Dehydrogenase C-Reactive Protein Procalcitonin TSH 36.61 H Free T4 Urine Appearance Urine Protein Urine Urobilinogen Ur Leukocyte Esterase Calcium Oxalate Crystal Urine Mucus 10/31/22 09:58 RBC Hgb POC Hct 35.0 L MCV MCHC RDW Immature Gran % (Auto) Neut % (Auto) Lymph % (Auto) [place] % (Auto) Eos % (Auto) Lymph # (Auto) [place] # (Auto) Immature Gran # RBC Morphology Hypochromasia Anisocytosis Macrocytosis ESR POC pCO2 POC pO2 POC HCO3 POC ABG Base Excess ABG Lactic Acid POC VBG pH POC VBG HCO3 POC VBG Total CO2 POC VBG Base Excess Hgb O2 Saturation Carbon Dioxide POC Total CO2 33.0 H Anion Gap POC BUN 25 H BUN Glucose POC Glucose 137 H Phosphorus Lactate Dehydrogenase C-Reactive Protein Procalcitonin TSH Free T4 Urine Appearance Urine Protein Urine Urobilinogen Ur Leukocyte Esterase Calcium Oxalate Crystal Urine Mucus Meds: Medications Acetaminophen (Acetaminophen 325 Mg Tablet) 650 mg PO Q6HP PRN; Protocol PRN Reason: Per Pain Protocol/Fever > 101 Albuterol/Ipratropium (Ipratropium/Albuterol 3 Ml Ampul.Neb) 3 ml NEB Q4HP PRN PRN Reason: Shortness Of Breath Docusate Sodium (Docusate Sodium 100 Mg Capsule) 100 mg PO BID [facility] Last Admin: 10/31/22 21:34 Dose: Not Given Enoxaparin Sodium (Enoxaparin 30 Mg/0.3 Ml Syringe) 30 mg SQ DAILY [facility] Potassium Chloride 40 meq/ (Dextrose) 520 mls @ 130 mls/hr IV UD PRN PRN Reason: Potassium < 3 Magnesium Sulfate (Magnesium Sulfate) 2 gm in 50 mls @ 50 mls/hr IV UD PRN PRN Reason: Magnesium </= 1.6 Levothyroxine Sodium ([facility] 100 Mcg Vial) [facility] Admin: 10/31/22 22:22 Dose: 50 mcg Megestrol Acetate (Megestrol Acetate 400 Mg/10 Ml Udc) 400 mg PO DAILY [facility] Methylprednisolone Sodium Succinate (Methylprednisolone Sod Succ 125 Mg/2 Ml Vial) 250 mg IV Q6 [facility] Stop: 11/03/22 06:01 Last Admin: 11/01/22 05:51 Dose: 250 mg Ondansetron HCl (Ondansetron 4 Mg/2 Ml Vial) 4 mg IV Q4HP PRN PRN Reason: Nausea And Vomiting Pantoprazole Sodium (Pantoprazole 40 Mg Vial) [facility] Polyethylene Glycol (Polyethylene Glycol 3350 17 Gm Packet) 17 gm PO DAILYP PRN PRN Reason: Constipation Potassium Chloride (Potassium Chloride 20 Meq Tablet) 40 meq PO UD PRN PRN Reason: Potssium is 3-3.5 Potassium Chloride (Potassium Chloride 20 Meq Tablet) 40 meq PO UD PRN PRN Reason: Potassium < 3 Prednisone (Pred[facility] 20 Mg Tablet) [facility] Senna (Sennosides 1 Tablet) 2 tab PO DAILYP PRN PRN Reason: Constipation Sodium Chloride (0.9 % Sodium Chloride 10 Ml Syringe) 10 ml IV Q8 [facility] Last Admin: 11/01/22 05:52 Dose: 10 ml A/P Narrative A/P Narrative: A: *Acute hypoxic respiratory failure w/ALI: 2/2 chemical/aspiration pneumonitis vs ILD -no features consistent with bacterial pna; -no edema/jvd/bnp to suggest heart failure -flu/covid/rsv/rvp neg -ESR/CRP mildly elevated -suspect aspiration/gastric chemical pneumonitis w/ALI vs viral pna w/ALI superimposed on chronic injury -CTA diffuse b/l patchy infiltrates -hypoxia while sleeping (very shallow breathing) required increased O2 & subsequently cpap with good results *h/o COPD(not on home O2) / Bronchiectasis (mod-sev): *Encephalopathy: 2/2 above, improved *h/o diastolic(II)CHF: *Severe protein calorie malnutrition: Fat and muscle loss *Generalized weakness/deconditioning/falling/failure to thrive: appetite has been declining over past year *Dementia: *Macrocytic Anemia, chronic: 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 *HTN: was on lisinopril but hasn't taken in several months *Hypothyroidism, symptomatic: elevated tsh and low t4 d/t medication noncompliance P: -O2 supp, wean -case discussed with [place] [facility] who recommended high-dose steroid x3 day then taper, autoimmune w/u -IS/Acapella, prn nebs, RT -monitor fluid balance, i/o, uop, -monitor inflamamtory markers -autoimmune/vasculitis work up - evaz -Dietary consult -Levothyroxine IV -check t3, prealbumin -start ACEI if BP elevates -b12(if low test for mma,homocyst,ab-IF)/folate -PT/OT -ppx: Lovenox / ppi Time Spent With Patient Time: Total time spent is greater than 50% in coordination of care (as documented) at patient's floor/unit and/or counseling patient: Subsequent: Total time with patient: 50 - 65 Minutes QUALITY VTE Deep Vein Thrombosis/Pulmonary Embolism Present on Admission: No
[2022-11-01] MEDS: DOCUSATE SODIUM 100 MG CAPSULE PO SCH ×2 (08:43→20:38)
[2022-11-01] MEDS: ENOXAPARIN 30 MG/0.3 ML SYRINGE SQ SCH (09:22)
[2022-11-01] MEDS: MEGESTROL ACETATE 400 MG/10 ML UDC PO SCH (09:22)
[2022-11-01 09:50] LABS: Prealbumin 10.2 mg/dL (20.0-40.0)
[2022-11-01 09:55] LABS: Free T3 0.4 pg/mL (2.0-4.4)
[2022-11-01] MEDS ORDERED: LIOTHYRONINE 5 MCG TABLET PO ONE (10:11)
[2022-11-01] MEDS: SENNOSIDES 1 TABLET PO PRN (20:38)
[2022-11-02] MEDS: methylPREDNISolone SOD SUCC 125 MG/2 ML VIAL IV SCH ×2 (00:42→06:18)
[2022-11-02] MEDS: 0.9 % SODIUM CHLORIDE 10 ML SYRINGE IV SCH ×4 (00:43→20:12)
[2022-11-02] MEDS: LEVOTHYROXINE 100 MCG VIAL IV SCH (07:25)
[2022-11-02] MEDS: PANTOPRAZOLE 40 MG VIAL IV SCH (07:26)
--- NOTE | 2022-11-02 07:50 | Internal Med Progress Note ---
SUBJECTIVE Subjective Patient information: Note initiated : 11/02/22 at 7:47 am Service Date, if different from initiated Date: [] Patient: Mouna Jorgensen 82 y/o F admitted on 10/31/22 for "vertigo". Chief Complaint: [] Interval history: History of present illness: Ms. Jorgensen is a 82 year old F Patient presented today for dizziness and lightheadedness. Found to be hypoxic in 60's in triage, when asked if she is short of breath she told triage nurse that she sometimes is short of breath. She denied cough in the ER but admitted it to me. Patient seems to be quite a poor historian. But does believe she came to the ER because of weakness and falling. Patient says that she has had shortness of breath for couple months as well as a dry cough. She thinks she had a stroke several months ago when she developed drooling on the right side of her mouth. Patient has acid reflux/pyrosis occasionally but not frequently. She does admit to falling recently as well. Her states that she eats poorly and this has been worsening over the past year. A CT of the brain in the ED showed no old infarcts, just chronic ischemic changes. Work-up in the ED was unremarkable for obvious bacterial pneumonia or heart failure. When I discussed with the patient the possible etiology of aspiration pneumonitis she thought aspiration was high likelihood even though when I asked her if she coughed when she ate or drink or if food and drink ever went down the wrong pipe she said no. No leukocytosis or fever in the ED. Manual differential pending. Procalcitonin low. BNP low. PaO2 is 53 on room air. Chest x-ray with diffuse bilateral infiltrates, CTA of the chest with large patchy diffuse infiltrates to both lungs concerning for an interstitial lung disease process. Chronic bronchitis and tubular bronchiectasis also noted in both lungs upper and lower. Case was discussed with [place] technical writing lead/mgr who recommended work-up for autoimmune and connective tissue disease process. Reviewed images and felt probably an interstitial lung disease and recommended high-dose steroids 1gm/day for 3 days followed by taper. TSH was quite elevated and she did admit to not taking her medications 3 to 4 months ago. 11/01 Patient complains of weakness, dry mouth. Dry cough. Shortness of breath Patient required increasing oxygen needs while sleeping last night to the point where she needed CPAP. However while she is awake she requires very little oxygen, 1L. 11/02 Has good oxygenation while awake but when sleeps she desats. Patient states shortness of breath is mildly improved. Dry cough dry mouth. PHYSICAL EXAM: General: Alert, Awake, No acute Distress, cachectic Eyes/N/T: EOMI, no scleral icterus, periorbital edema Head/Neck: neck supple, full ROM, CV: bradycardic but regular, 2/6SM, Pulm: mild rhonchi b/l, no wheezing, no respiratory distress Abd: soft, nontender, +BS x4 Ext: no clubbing/cyanosis/edema, nontender Neuro: Alert, no focal deficits, moves all extremities, sensations intact b/l upper/lower Psychiatric: Skin: warm/dry, normal color Constitutional Vitals: Vital Signs Temp Pulse Resp BP Pulse Ox O2 Del Method O2 Flow Rate 97.4 F 50 L 16 95/46 96 Nasal Cannula 2 11/02/22 07:41 11/02/22 04:48 11/02/22 04:47 11/02/22 04:47 11/02/22 04:48 11/02/22 04:47 11/02/22 04:47 Period Temp Pulse Resp BP Sys/Landeros Pulse Ox O2 Del Method O2 Flow Rate Last 24 Hr 97.4 F-99.4 F 48-64 16-20 95-112/46-55 93-99 CPAP-Nasal Cannula 1-2 Intake and Output 11/01/22 11/02/22 11/02/22 19:59 03:59 11:59 Intake Total 360 480 Output Total 100 225 Balance 260 255 Weight 49.986 kg Intake & Output: Intake & Output 11/01/22 11/02/22 11/02/22 19:59 03:59 11:59 Intake Total 360 480 Output Total 100 225 Balance 260 255 Weight 49.986 kg Intake: Nourishment/Supplement quantity 360 (ml) Oral 360 120 Output: Void Amount 100 225 Other: Meal Dinner Applejuice Percent of Meal Consumed 50% Feeding Ability Assist with Tray Set Up Nourishment/Supplement name Ensure Clear-Apple Flavor Urine Appearance Cloudy Clear Urine Color Dark Yellow Dark Yellow Urine Odor Normal Normal Stool Size Smear Smear Stool Color Brown Brown Stool Consistency Liquid Liquid OBJ DATA Labs 11/01/22 05:24 11/01/22 05:23 Labs: Abnormal Lab Results 11/01/22 11/01/22 11/01/22 08:24 05:24 05:23 RBC Hgb POC Hct MCV 103.8 H MCHC 30.3 L RDW 14.8 H Immature Gran % (Auto) 1.1 H Neut % (Auto) 88.7 H Lymph % (Auto) 9.4 L Logan % (Auto) 0.6 L Eos % (Auto) Lymph # (Auto) 0.59 L Logan # (Auto) 0.04 L Immature Gran # 0.07 H RBC Morphology Hypochromasia Anisocytosis Macrocytosis ESR POC pCO2 POC pO2 POC HCO3 POC ABG Base Excess ABG Lactic Acid POC VBG pH POC VBG HCO3 POC VBG Total CO2 POC VBG Base Excess Hgb O2 Saturation Carbon Dioxide 33 H POC Total CO2 Anion Gap 6.0 L POC BUN BUN 26 H Glucose 140 H POC Glucose Phosphorus 5.5 H Lactate Dehydrogenase 390 H C-Reactive Protein Prealbumin 10.2 L Procalcitonin TSH Free T4 Free T3 pg/mL 0.4 L Urine Appearance Urine Protein Urine Urobilinogen Ur Leukocyte Esterase Calcium Oxalate Crystal Urine Mucus 10/31/22 10/31/22 10/31/22 13:57 12:47 10:45 RBC Hgb POC Hct MCV MCHC RDW Immature Gran % (Auto) Neut % (Auto) Lymph % (Auto) Logan % (Auto) Eos % (Auto) Lymph # (Auto) Logan # (Auto) Immature Gran # RBC Morphology Hypochromasia Anisocytosis Macrocytosis ESR POC pCO2 56.7 H* POC pO2 53 L POC HCO3 34.5 H POC ABG Base Excess 10.0 H ABG Lactic Acid 0.4 L POC VBG pH POC VBG HCO3 POC VBG Total CO2 POC VBG Base Excess Hgb O2 Saturation 86.0 L Carbon Dioxide POC Total CO2 36.0 H Anion Gap POC BUN BUN Glucose POC Glucose Phosphorus Lactate Dehydrogenase C-Reactive Protein 1.60 H Prealbumin Procalcitonin TSH Free T4 Free T3 pg/mL Urine Appearance Hazy A Urine Protein 30 A Urine Urobilinogen 2.0 A Ur Leukocyte Esterase 25 A Calcium Oxalate Crystal Mod A Urine Mucus Many A 10/31/22 10/31/22 10/31/22 10:45 10:45 10:45 RBC Hgb POC Hct MCV MCHC RDW Immature Gran % (Auto) Neut % (Auto) Lymph % (Auto) Logan % (Auto) Eos % (Auto) Lymph # (Auto) Logan # (Auto) Immature Gran # RBC Morphology Abnormal A Hypochromasia 1+ A Anisocytosis Rare A Macrocytosis 1+ A ESR 43 H POC pCO2 POC pO2 POC HCO3 POC ABG Base Excess ABG Lactic Acid POC VBG pH POC VBG HCO3 POC VBG Total CO2 POC VBG Base Excess Hgb O2 Saturation Carbon Dioxide POC Total CO2 Anion Gap POC BUN BUN Glucose POC Glucose Phosphorus Lactate Dehydrogenase C-Reactive Protein Prealbumin Procalcitonin TSH Free T4 < 0.10 L Free T3 pg/mL Urine Appearance Urine Protein Urine Urobilinogen Ur Leukocyte Esterase Calcium Oxalate Crystal Urine Mucus 10/31/22 10/31/22 10/31/22 10:44 10:44 10:44 RBC 3.50 L Hgb 11.1 L POC Hct MCV 101.7 H MCHC RDW 14.7 H Immature Gran % (Auto) Neut % (Auto) Lymph % (Auto) 10.4 L Logan % (Auto) Eos % (Auto) 8.5 H Lymph # (Auto) 0.63 L Logan # (Auto) Immature Gran # RBC Morphology Hypochromasia Anisocytosis Macrocytosis ESR POC pCO2 POC pO2 POC HCO3 POC ABG Base Excess ABG Lactic Acid POC VBG pH POC VBG HCO3 POC VBG Total CO2 POC VBG Base Excess Hgb O2 Saturation Carbon Dioxide POC Total CO2 Anion Gap POC BUN BUN Glucose POC Glucose Phosphorus Lactate Dehydrogenase C-Reactive Protein Prealbumin Procalcitonin 0.12 H TSH 36.61 H Free T4 Free T3 pg/mL Urine Appearance Urine Protein Urine Urobilinogen Ur Leukocyte Esterase Calcium Oxalate Crystal Urine Mucus 10/31/22 10/31/22 09:59 09:58 RBC Hgb POC Hct 35.0 L MCV MCHC RDW Immature Gran % (Auto) Neut % (Auto) Lymph % (Auto) Logan % (Auto) Eos % (Auto) Lymph # (Auto) Logan # (Auto) Immature Gran # RBC Morphology Hypochromasia Anisocytosis Macrocytosis ESR POC pCO2 POC pO2 POC HCO3 POC ABG Base Excess ABG Lactic Acid POC VBG pH 7.44 H POC VBG HCO3 33.0 H POC VBG Total CO2 34.0 H POC VBG Base Excess 9.0 H* Hgb O2 Saturation Carbon Dioxide POC Total CO2 33.0 H Anion Gap POC BUN 25 H BUN Glucose POC Glucose 137 H Phosphorus Lactate Dehydrogenase C-Reactive Protein Prealbumin Procalcitonin TSH Free T4 Free T3 pg/mL Urine Appearance Urine Protein Urine Urobilinogen Ur Leukocyte Esterase Calcium Oxalate Crystal Urine Mucus Meds: Medications Acetaminophen (Acetaminophen 325 Mg Tablet) 650 mg PO Q6HP PRN; Protocol PRN Reason: Per Pain Protocol/Fever > 101 Albuterol/Ipratropium (Ipratropium/Albuterol 3 Ml Ampul.Neb) 3 ml NEB Q4HP PRN PRN Reason: Shortness Of Breath Docusate Sodium (Docusate Sodium 100 Mg Capsule) 100 mg PO BID [facility] Last Admin: 11/01/22 20:38 Dose: 100 mg Enoxaparin Sodium (Enoxaparin 30 Mg/0.3 Ml Syringe) 30 mg SQ DAILY [facility] Last Admin: 11/01/22 09:22 Dose: 30 mg Potassium Chloride 40 meq/ (Dextrose) 520 mls @ 130 mls/hr IV UD PRN PRN Reason: Potassium < 3 Magnesium Sulfate (Magnesium Sulfate) 2 gm in 50 mls @ 50 mls/hr IV UD PRN PRN Reason: Magnesium </= 1.6 Levothyroxine Sodium (Levothyroxine 100 Mcg Vial) 50 mcg IV QAMAC [facility] Last Admin: 11/02/22 07:25 Dose: 50 mcg Megestrol Acetate (Megestrol Acetate 400 Mg/10 Ml Udc) 400 mg PO DAILY [facility] Last Admin: 11/01/22 09:22 Dose: 400 mg Methylprednisolone Sodium Succinate (Methylprednisolone Sod Succ 125 Mg/2 Ml Vial) 250 mg IV Q6 [facility] Stop: 11/03/22 06:01 Last Admin: 11/02/22 06:18 Dose: 250 mg Ondansetron HCl (Ondansetron 4 Mg/2 Ml Vial) 4 mg IV Q4HP PRN PRN Reason: Nausea And Vomiting Pantoprazole Sodium (Pantoprazole 40 Mg Vial) 40 mg IV QAMAC [facility] Last Admin: 11/02/22 07:26 Dose: 40 mg Polyethylene Glycol (Polyethylene Glycol 3350 17 Gm Packet) 17 gm PO DAILYP PRN PRN Reason: Constipation Potassium Chloride (Potassium Chloride 20 Meq Tablet) 40 meq PO UD PRN PRN Reason: Potssium is 3-3.5 Potassium Chloride (Potassium Chloride 20 Meq Tablet) 40 meq PO UD PRN PRN Reason: Potassium < 3 Prednisone (Prednisone 20 Mg Tablet) 60 mg PO [facility] Senna (Sennosides 1 Tablet) 2 tab PO DAILYP PRN PRN Reason: Constipation Last Admin: 11/01/22 20:38 Dose: 2 tab Sodium Chloride (0.9 % Sodium Chloride 10 Ml Syringe) 10 ml IV Q8 [facility] Last Admin: 11/02/22 06:20 Dose: 10 ml A/P Narrative A/P Narrative: A: *Acute hypoxic respiratory failure w/ALI: 2/2 chemical/aspiration pneumonitis vs ILD -no features consistent with bacterial pna; -no edema/jvd/bnp to suggest heart failure -flu/covid/rsv/rvp neg; -ESR/CRP mildly elevated -suspect aspiration/gastric chemical pneumonitis w/ALI vs viral pna w/ALI superimposed on chronic injury -CTA diffuse b/l patchy infiltrates -hypoxia while sleeping (very shallow breathing) required increased O2 & subsequently cpap with good results -on 2L NC with good sats *h/o COPD(not on home O2) / Bronchiectasis (mod-sev): *Encephalopathy: 2/2 above, improved *h/o diastolic(II)CHF: *Severe protein calorie malnutrition: Fat and muscle loss *Generalized weakness/deconditioning/falling/Failure To Thrive: appetite has been declining over past year *Dementia: *Macrocytic Anemia, chronic: b12/folate ok *HTN: was on lisinopril but hasn't taken in several months *Hypothyroidism, symptomatic: elevated tsh and low t4 d/t medication noncompliance P: -am chem pending -O2 supp, wean -prn cpap while sleeping -case discussed with [facility] heart Pulmonology who recommended high-dose steroid x3 day then taper, autoimmune w/u -IS/Acapella, prn nebs, RT -monitor fluid balance, i/o, uop, -monitor inflammtory markers -autoimmune/vasculitis work up -ST eval pending -Dietary consult -Levothyroxine IV -start ACEI if BP elevates -PT/OT -ppx: Lovenox / ppi Time Spent With Patient Time: Total time spent is greater than 50% in coordination of care (as documented) at patient's floor/unit and/or counseling patient: Subsequent: Total time with patient: 50 - 65 Minutes QUALITY VTE Deep Vein Thrombosis/Pulmonary Embolism Present on Admission: No
[2022-11-02] MEDS: SENNOSIDES 1 TABLET PO PRN (09:20)
[2022-11-02] MEDS: DOCUSATE SODIUM 100 MG CAPSULE PO SCH ×2 (09:20→20:11)
[2022-11-02] MEDS: ENOXAPARIN 30 MG/0.3 ML SYRINGE SQ SCH (09:21)
[2022-11-02] MEDS: MEGESTROL ACETATE 400 MG/10 ML UDC PO SCH (09:21)
[2022-11-02 09:50] LABS: ALT/SGPT < 5 U/L (<40); AST/SGOT 17 U/L (<32); Albumin 3.3 gm/dL (3.2-5.2); Albumin/Globulin Ratio 1.1 (1.0-2.3); Alkaline Phosphatase 42 U/L (39-117); Bilirubin,Direct < 0.2 mg/dL (0-0.3); Bilirubin,Total < 0.2 mg/dL (0.1-1.0); Blood Urea Nitrogen 40 mg/dL (8-23); Calcium 9.2 mg/dL (8.6-10.4); Carbon Dioxide 30 mmol/L (22-30); Chloride 100 mmol/L (96-108); Glomerular Filtration Rate 46; Glucose 200 mg/dL (70-105); Lactate Dehydrogenase 323 U/L (135-225); Phosphorous 3.1 mg/dL (2.5-4.5); Triglycerides 60 mg/dL (<150)
--- NOTE | 2022-11-02 13:45 | EKG ---
[facility] Test Date: 2022-10-31 Pat Name: Mouna Jorgensen Department: ED Room: Gender: Female [employer]: lr : 1940 Requested By: Arnav Ayala Order Number: [id number] Reading MD: Zachary Gorman Measurements Intervals [place] Rate: 57 P: 82 UT: 198 QRS: 89 QRSD: 98 T: 103 QT: 419 QTc: 408 Interpretive Statements Sinus rhythm Borderline right axis deviation Probable LVH with secondary repol abnrm Baseline wander in lead(s) V6 Electronically Signed On 11-02-2022 13:44:52 PST by Zachary Gorman /store/M0/[id number]/[id number]
[2022-11-03] MEDS: 0.9 % SODIUM CHLORIDE 10 ML SYRINGE IV SCH ×3 (06:11→21:28)
[2022-11-03 07:22] LABS: Basophils # (Auto) 0.01 K/mcL (0.00-0.30); Basophils % (Auto) 0.1 % (0.0-2.0); Eosinophils # (Auto) 0 K/mcL (0.00-0.70); Eosinophils % (Auto) 0 % (0.0-7.0); Hematocrit 32.3 % (34.1-44.9); Lymphocytes # (Auto) 0.57 K/mcL (1.50-4.80); Mean Cell Volume 103.9 fL (80.0-100.0); Mean Platelet Volume 10.3 fL (8.8-12.5); Monocytes # (Auto) 0.78 K/mcL (0.10-0.90); Monocytes % (Auto) 5.4 % (1.0-12.0); Neutrophils % (Auto) 89.9 % (38.0-78.0); Platelet Count 248 K/mcL (140-440); RBC 3.11 M/mcL (3.59-5.38); Red Cell Distribution Width 15.1 % (11.5-14.5); WBC 14.4 K/mcL (4.5-11.0)
[2022-11-03] MEDS: PANTOPRAZOLE 40 MG VIAL IV SCH (07:43)
[2022-11-03] MEDS: predniSONE 20 MG TABLET PO SCH (07:43)
[2022-11-03] MEDS: LEVOTHYROXINE 100 MCG VIAL IV SCH (07:43)
[2022-11-03] MEDS: ENOXAPARIN 30 MG/0.3 ML SYRINGE SQ SCH (08:16)
[2022-11-03] MEDS: MEGESTROL ACETATE 400 MG/10 ML UDC PO SCH (08:16)
[2022-11-03] MEDS: DOCUSATE SODIUM 100 MG CAPSULE PO SCH ×2 (08:17→21:28)
[2022-11-03 08:58] LABS: ALT/SGPT < 5 U/L (<40); AST/SGOT 17 U/L (<32); Albumin 3.2 gm/dL (3.2-5.2); Albumin/Globulin Ratio 1.1 (1.0-2.3); Alkaline Phosphatase 40 U/L (39-117); Bilirubin,Total 0.2 mg/dL (0.1-1.0); Blood Urea Nitrogen 36 mg/dL (8-23); Calcium 9.4 mg/dL (8.6-10.4); Carbon Dioxide 30 mmol/L (22-30); Chloride 104 mmol/L (96-108); Glomerular Filtration Rate 68; Glucose 89 mg/dL (70-105)
--- NOTE | 2022-11-03 17:15 | Internal Med Progress Note ---
SUBJECTIVE Subjective Patient information: Note initiated : 11/03/22 at 5:05 pm Service Date, if different from initiated Date: [] Patient: Mouna Jorgensen 82 y/o F admitted on 10/31/22 for "vertigo". Chief Complaint: [] Interval history: Ms. Jorgensen is a 82 year old F Patient presented today for dizziness and lightheadedness. Found to be hypoxic in 60's in triage, when asked if she is short of breath she told triage nurse that she sometimes is short of breath. She denied cough in the ER but admitted it to me. Patient seems to be quite a poor historian. But does believe she came to the ER because of weakness and falling. Patient says that she has had shortness of breath for couple months as well as a dry cough. She thinks she had a stroke several months ago when she developed drooling on the right side of her mouth. Patient has acid reflux/pyrosis occasionally but not frequently. She does admit to falling recently as well. Her states that she eats poorly and this has been worsening over the past year. A CT of the brain in the ED showed no old infarcts, just chronic ischemic changes. Work-up in the ED was unremarkable for obvious bacterial pneumonia or heart failure. When I discussed with the patient the possible etiology of aspiration pneumonitis she thought aspiration was high likelihood even though when I asked her if she coughed when she ate or drink or if food and drink ever went down the wrong pipe she said no. No leukocytosis or fever in the ED. Manual differential pending. Procalcitonin low. BNP low. PaO2 is 53 on room air. Chest x-ray with diffuse bilateral infiltrates, CTA of the chest with large patchy diffuse infiltrates to both lungs concerning for an interstitial lung disease process. Chronic bronchitis and tubular bronchiectasis also noted in both lungs upper and lower. Case was discussed with [place] information systems planner who recommended work-up for autoimmune and connective tissue disease process. Reviewed images and felt probably an interstitial lung disease and recommended high-dose steroids 1gm/day for 3 days followed by taper. TSH was quite elevated and she did admit to not taking her medications 3 to 4 months ago. 11/01 Patient complains of weakness, dry mouth. Dry cough. Shortness of breath Patient required increasing oxygen needs while sleeping last night to the point where she needed CPAP. However while she is awake she requires very little oxygen, 1L. 11/02 Has good oxygenation while awake but when sleeps she desats. Patient states shortness of breath is mildly improved. Dry cough dry mouth. 11/03: Patient is currently tolerating 1 L/min nasal cannula oxygen. She was evaluated by speech therapist and no dysphagia identified. She tolerated regular diet fine. She denies any shortness of breath or cough/sputum productions or respiratory wheezing. She denies any chest pain or palpitations. She denies any fever chills or diaphoresis. She denies any GI symptoms such as nausea or vomiting. She is currently very comfortable. We will continue oral prednisone for ILD. We will plan to discharge her home with home health services tomorrow. Constitutional Vitals: Vital Signs Temp Pulse Resp BP Pulse Ox O2 Del Method O2 Flow Rate 37.2 C 63 18 123/60 96 Nasal Cannula 1 11/03/22 15:10 11/03/22 15:10 11/03/22 15:10 11/03/22 15:10 11/03/22 15:10 11/03/22 15:10 11/03/22 15:10 Period Temp Pulse Resp BP Sys/Landeros Pulse Ox O2 Del Method O2 Flow Rate Last 24 Hr 36.1 C-37.3 C 47-63 14-20 103-123/48-70 93-97 Nasal Cannula- Nasal Cannula 0.5-2 Intake and Output 11/03/22 11/03/22 11/03/22 03:59 11:59 19:59 Intake Total 240 400 600 Output Total 400 200 350 Balance -160 200 250 Intake & Output: Intake & Output 11/03/22 11/03/22 11/03/22 03:59 11:59 19:59 Intake Total 240 400 600 Output Total 400 200 350 Balance -160 200 250 Intake: Oral 240 400 600 Output: Void Amount 400 200 350 Other: Meal Breakfast Lunch Percent of Meal Consumed 100% 100% Urine Appearance Clear Clear Sediment Urine Color Yellow Yellow Urine Odor Normal Stool Size Smear Large Smear Stool Color Brown Brown Brown Stool Consistency Normal for Patient Soft Soft Formed # Bowel Movements 1 Head Head exam: Present atraumatic and normal inspection Eye Eye exam: Present normal appearance ENT ENT exam: Present mucous membranes moist and normal external ear exam; Absent normal exam Additional comments: Nasal cannula in place Bilateral hard of hearing Neck Neck exam: Present normal inspection Respiratory Respiratory exam: Present rhonchi Cardiovascular Cardiovascular exam: Present normal rate and rhythm GI/Abdominal GI/Abdominal exam: Present normal bowel sounds Back Exam Back exam: Present normal inspection Neurological Exam Neurological exam: Present alert and oriented X3 Skin Skin exam: Present intact and warm OBJ DATA Labs 11/03/22 05:36 11/03/22 05:36 Labs: Abnormal Lab Results 11/03/22 11/03/22 11/02/22 05:36 05:36 08:10 WBC 14.4 H RBC 3.11 L Hgb 10.0 L Hct 32.3 L MCV 103.9 H MCHC RDW 15.1 H Immature Gran % (Auto) 0.6 H Neut % (Auto) 89.9 H Lymph % (Auto) 4.0 L Gates % (Auto) Lymph # (Auto) 0.57 L Gates # (Auto) Immature Gran # 0.09 H Absolute Neutrophils 12.91 H Carbon Dioxide Anion Gap BUN 36 H 40 H Glucose 200 H Phosphorus Lactate Dehydrogenase 323 H Prealbumin Free T3 pg/mL 11/01/22 11/01/22 11/01/22 08:24 05:24 05:23 WBC RBC Hgb Hct MCV 103.8 H MCHC 30.3 L RDW 14.8 H Immature Gran % (Auto) 1.1 H Neut % (Auto) 88.7 H Lymph % (Auto) 9.4 L Gates % (Auto) 0.6 L Lymph # (Auto) 0.59 L Gates # (Auto) 0.04 L Immature Gran # 0.07 H Absolute Neutrophils Carbon Dioxide 33 H Anion Gap 6.0 L BUN 26 H Glucose 140 H Phosphorus 5.5 H Lactate Dehydrogenase 390 H Prealbumin 10.2 L Free T3 pg/mL 0.4 L Meds: Medications Acetaminophen (Acetaminophen 325 Mg Tablet) 650 mg PO Q6HP PRN; Protocol PRN Reason: Per Pain Protocol/Fever > 101 Albuterol/Ipratropium (Ipratropium/Albuterol 3 Ml Ampul.Neb) 3 ml NEB Q4HP PRN PRN Reason: Shortness Of Breath Docusate Sodium (Docusate Sodium 100 Mg Capsule) 100 mg PO BID [facility] Last Admin: 11/03/22 08:17 Dose: Not Given Enoxaparin Sodium (Enoxaparin 30 Mg/0.3 Ml Syringe) 30 mg SQ DAILY [facility] Last Admin: 11/03/22 08:16 Dose: 30 mg Potassium Chloride 40 meq/ (Dextrose) 520 mls @ 130 mls/hr IV UD PRN PRN Reason: Potassium < 3 Magnesium Sulfate (Magnesium Sulfate) 2 gm in 50 mls @ 50 mls/hr IV UD PRN PRN Reason: Magnesium </= 1.6 Levothyroxine Sodium (Levothyroxine 100 Mcg Vial) [facility] Last Admin: 11/03/22 07:43 Dose: 50 mcg Megestrol Acetate (Megestrol Acetate 400 Mg/10 Ml Udc) 400 mg PO DAILY [facility] Last Admin: 11/03/22 08:16 Dose: 400 mg Ondansetron HCl (Ondansetron 4 Mg/2 Ml Vial) 4 mg IV Q4HP PRN PRN Reason: Nausea And Vomiting Pantoprazole Sodium (Pantoprazole 40 Mg Vial) 40 [facility] Last Admin: 11/03/22 07:43 Dose: 40 mg Polyethylene Glycol (Polyethylene Glycol 3350 17 Gm Packet) 17 gm PO DAILYP PRN PRN Reason: Constipation Last Admin: 11/02/22 09:20 Dose: 17 gm Potassium Chloride (Potassium Chloride 20 Meq Tablet) 40 meq PO UD PRN PRN Reason: Potssium is 3-3.5 Potassium Chloride (Potassium Chloride 20 Meq Tablet) 40 meq PO UD PRN PRN Reason: Potassium < 3 Prednisone (Prednisone 20 Mg Tablet) [facility] Last Admin: 11/03/22 07:43 Dose: 60 mg Senna (Sennosides 1 Tablet) 2 tab PO DAILYP PRN PRN Reason: Constipation Last Admin: 11/02/22 09:20 Dose: 2 tab Sodium Chloride (0.9 % Sodium Chloride 10 Ml Syringe) 10 ml IV Q8 [facility] Last Admin: 11/03/22 14:13 Dose: 10 ml A/P Assessment and plan (1) Hypoxemia: Status: Acute (2) ILD (interstitial lung disease): Status: Acute (3) COPD (chronic obstructive pulmonary disease): Status: Chronic Qualifiers: COPD type: chronic bronchitis Chronic bronchitis type: unspecified Qualified Code(s): J42 - Unspecified chronic bronchitis (4) (HFpEF) heart failure with preserved ejection fraction: Status: Acute Qualifiers: Heart failure chronicity: unspecified Qualified Code(s): I50.30 - Unspecified diastolic (congestive) heart failure (5) Hypothyroidism: Status: Chronic (6) HTN (hypertension): Status: Chronic (7) Memory impairment: Status: Acute Narrative A/P Narrative: Assessment and Plans: 1. Hypoxia: DDx: interstitial lung disease vs aspiration pneumonia: Evaluated by speech therapy, no dysphagia identified Prednisone, will taper when being discharged home Supplemental oxygen therapy. 6min walk test to evaluate for candidacy for home oxygen 2. h/o COPD: Continue bronchodilators 3. Hypothyroidism: Continue thyroid replacement therapy 4. Essential hypertension: Start CAROLE-i if blood pressure elevated 5. Cognitive impairment: Pending home health services upon discharge 6. HFpEF: Stable, continue to monitor GI ppx: Protonix DVT ppx: Lovenox Code status: DNR Prognosis: stable Disposition: inpatient med surg; upon d/c Time Spent With Patient Time: Total time spent is greater than 50% in coordination of care (as documented) at patient's floor/unit and/or counseling patient: Subsequent: Total time with patient: 35 - 49 minutes QUALITY VTE Deep Vein Thrombosis/Pulmonary Embolism Present on Admission: No
[2022-11-03 19:34] LABS: Cryoglobulin Negative (Negative)
[2022-11-04] MEDS: 0.9 % SODIUM CHLORIDE 10 ML SYRINGE IV SCH (05:30)
[2022-11-04 06:59] LABS: ALT/SGPT < 5 U/L (<40); AST/SGOT 17 U/L (<32); Albumin 3.2 gm/dL (3.2-5.2); Albumin/Globulin Ratio 1.1 (1.0-2.3); Alkaline Phosphatase 43 U/L (39-117); Bilirubin,Total < 0.2 mg/dL (0.1-1.0); Blood Urea Nitrogen 30 mg/dL (8-23); Calcium 9.4 mg/dL (8.6-10.4); Carbon Dioxide 35 mmol/L (22-30); Chloride 101 mmol/L (96-108); Glomerular Filtration Rate 68; Glucose 109 mg/dL (70-105)
[2022-11-04 07:01] LABS: Basophils # (Auto) 0.02 K/mcL (0.00-0.30); Basophils % (Auto) 0.2 % (0.0-2.0); Eosinophils # (Auto) 0 K/mcL (0.00-0.70); Eosinophils % (Auto) 0 % (0.0-7.0); Hematocrit 34.1 % (34.1-44.9); Hemoglobin 10.4 g/dL (11.2-15.7); Lymphocytes # (Auto) 0.53 K/mcL (1.50-4.80); Lymphocytes % (Auto) 4.2 % (15.5-49.0); Mean Cell Volume 105.9 fL (80.0-100.0); Mean Corpuscular HGB Conc 30.5 g/dL (31.0-36.0); Mean Platelet Volume 10.3 fL (8.8-12.5); Monocytes # (Auto) 0.68 K/mcL (0.10-0.90); Monocytes % (Auto) 5.4 % (1.0-12.0); Neutrophils % (Auto) 89.3 % (38.0-78.0); Platelet Count 234 K/mcL (140-440); RBC 3.22 M/mcL (3.59-5.38); Red Cell Distribution Width 15.4 % (11.5-14.5); WBC 12.7 K/mcL (4.5-11.0)
[2022-11-04] MEDS ORDERED: LEVOTHYROXINE 50 MCG TABLET PO SCH (07:30)
[2022-11-04] MEDS: DOCUSATE SODIUM 100 MG CAPSULE PO SCH (07:59)
[2022-11-04] MEDS: PANTOPRAZOLE 40 MG VIAL IV SCH (08:12)
[2022-11-04] MEDS: MEGESTROL ACETATE 400 MG/10 ML UDC PO SCH (08:12)
[2022-11-04] MEDS: ENOXAPARIN 30 MG/0.3 ML SYRINGE SQ SCH (08:12)
[2022-11-04] MEDS: predniSONE 20 MG TABLET PO SCH (08:12)
--- NOTE | 2022-11-04 11:01 | Discharge Summary ---
Discharge Provider Provider IMPORTANT FOLLOW-UP INFORMATION FOR PCP: Patient information: Note initiated : 11/04/22 at 10:58 am Service Date, if different from initiated Date: [] Patient: Mouna Jorgensen 82 y/o F admitted on 10/31/22 for "vertigo". Chief Complaint: [] Date of admission: 10/31/22 15:50 Discharge date: 11/04/22 Primary care physician: Zita Forde PA-C Attending physician on admission: Wilder Morse Consults: 10/31/22 Consult to Physician [CONS] Stat Comment: Consulting Provider: Wilder Morse Reason For Exam: Physician to Consult Attending physician on discharge: [facility] Matteo Pui COURSE Hospital Course Hospital course: Ms. Jorgensen is a 82 year old F Patient presented today for dizziness and lightheadedness. Found to be hypoxic in 60's in triage, when asked if she is short of breath she told triage nurse that she sometimes is short of breath. She denied cough in the ER but admitted it to me. Patient seems to be quite a poor historian. But does believe she came to the ER because of weakness and falling. Patient says that she has had shortness of breath for couple months as well as a dry cough. She thinks she had a stroke several months ago when she developed drooling on the right side of her mouth. Patient has acid reflux/pyrosis occasionally but not frequently. She does admit to falling recently as well. Her states that she eats poorly and this has been worsening over the past year. A CT of the brain in the ED showed no old infarcts, just chronic ischemic changes. Work-up in the ED was unremarkable for obvious bacterial pneumonia or heart failure. When I discussed with the patient the possible etiology of aspiration pneumonitis she thought aspiration was high likelihood even though when I asked her if she coughed when she ate or drink or if food and drink ever went down the wrong pipe she said no. No leukocytosis or fever in the ED. Manual differential pending. Procalcitonin low. BNP low. PaO2 is 53 on room air. Chest x-ray with diffuse bilateral infiltrates, CTA of the chest with large patchy diffuse infiltrates to both lungs concerning for an interstitial lung disease process. Chronic bronchitis and tubular bronchiectasis also noted in both lungs upper and lower. Case was discussed with [place] speech language pathologist assistant who recommended work-up for autoimmune and connective tissue disease process. Reviewed images and felt probably an interstitial lung disease and recommended high-dose steroids 1gm/day for 3 days followed by taper. TSH was quite elevated and she did admit to not taking her medications 3 to 4 months ago. 11/01 Patient complains of weakness, dry mouth. Dry cough. Shortness of breath Patient required increasing oxygen needs while sleeping last night to the point where she needed CPAP. However while she is awake she requires very little oxygen, 1L. 11/02 Has good oxygenation while awake but when sleeps she desats. Patient states shortness of breath is mildly improved. Dry cough dry mouth. 11/03: Patient is currently tolerating 1 L/min nasal cannula oxygen. She was evaluated by speech therapist and no dysphagia identified. She tolerated regular diet fine. She denies any shortness of breath or cough/sputum productions or respiratory wheezing. She denies any chest pain or palpitations. She denies any fever chills or diaphoresis. She denies any GI symptoms such as nausea or vomiting. She is currently very comfortable. We will continue oral prednisone for ILD. We will plan to discharge her home with home health services tomorrow. 11/04: Discharged to home with home health services. Follow up with PCP 1-2 week arranged. Referral to speech language pathologist assistant Dr. Kahn. Rx sent to pharmacy/given. All questions were answered prior to patient being physically discharged. Discharge diagnosis: Interstitial lung disease Time Spent with Patient Time attestation: Total time spent providing and/or coordinating discharge services: Time spent: Greater than 30 minutes EXAM Constitutional Vitals: Temp Pulse Resp BP Pulse Ox O2 Del Method O2 Flow Rate 36.9 C 51 L 16 122/56 98 Nasal Cannula 1 11/04/22 08:19 11/04/22 08:19 11/04/22 08:19 11/04/22 08:19 11/04/22 08:19 11/04/22 08:19 11/04/22 08:19 General appearance: cooperative and no acute distress Head Head exam: Present atraumatic and normocephalic Eye Eye exam: Present EOMI and PERRL ENT ENT exam: Present mucous membranes moist, normal exam and normal external ear exam Neck Neck exam: Present normal inspection; Absent lymphadenopathy, tenderness or thyromegaly Respiratory Respiratory exam: Present decreased breath sounds and rhonchi; Absent accessory muscle use, respiratory distress or wheezes Cardiovascular Cardiovascular exam: Present normal rate and rhythm; Absent JVD GI/Abdominal GI/Abdominal exam: Present normal bowel sounds and soft; Absent organomegaly or tenderness Extremities Exam Extremities exam: Present full ROM, normal capillary refill and normal inspection; Absent tenderness Neurological Exam Neurological exam: Present alert, CN II-XII intact and oriented X3; Absent motor sensory deficit Psychiatric Psychiatric exam: Present normal affect and normal mood; Absent anxious or depressed Skin Skin exam: Present dry and intact Discharge Data Data Completed and Pending Labs on day of discharge: Labs from last 24 hours 11/04/22 11/04/22 10/31/22 05:22 05:22 16:46 WBC 12.7 H RBC 3.22 L Hgb 10.4 L Hct 34.1 MCV 105.9 H MCH 32.3 MCHC 30.5 L RDW 15.4 H Plt Count 234 MPV 10.3 Immature Gran % (Auto) 0.9 H Neut % (Auto) 89.3 H Lymph % (Auto) 4.2 L [place] % (Auto) 5.4 Eos % (Auto) 0 Baso % (Auto) 0.2 Lymph # (Auto) 0.53 L [place] # (Auto) 0.68 Eos # (Auto) 0 Baso # (Auto) 0.02 Immature Gran # 0.11 H Absolute Neutrophils 11.34 H Sodium 140 Potassium 4.3 Chloride 101 Carbon Dioxide 35 H Anion Gap 4.0 L BUN 30 H Creatinine 0.8 GFR Calculation 68 Glucose 109 H Calcium 9.4 Total Bilirubin < 0.2 AST 17 ALT < 5 Alkaline Phosphatase 43 Total Protein 6.2 Albumin 3.2 Globulin 3.0 Albumin/Globulin Ratio 1.1 Cryoglobulin Negative Discharge Plan Patient/Caregiver Discharge Instructions Instructions: Using Oxygen at Home (GEN), Hypoxia (GEN) Activity Restrictions/Additional Instructions: [facility] will contact you to schedule an appointment Prescriptions: New prednisone 20 mg Tablet 20 mg PO QAMCC 7 Days Qty: 7 0RF levothyroxine 50 mcg Tablet 50 mcg PO QAMAC 30 Days Qty: 30 1RF megestrol 400 mg/10 mL (10 mL) Suspension 400 mg PO DAILY 30 Days Qty: 300 1RF Follow Up Plan Follow up with: Eula,Zita, PA-C [Primary Care Provider] - (They will contact you to schedule an appointment) Jb Kahn MD [Physician] - (A referral has been sent, they will contact you to schedule an appointment.) Patient Disposition: Home Health Service Rehab Potential: Good I certify that the patient requires SNF services: No Overall status at discharge: patient is progressing back to baseline Discharge Orders: Discharge Order (Routine); Ordered 11/04/22 Ordered By: Frederick HOPE VTE Deep Vein Thrombosis/Pulmonary Embolism Present on Admission: No
[2022-11-05 12:37] LABS: SCL-70(Scleroderma AB)-SO <1.0 NEG AI (<1.0 NEG)
[2022-11-05 17:46] LABS: Anti-CCP Antibody-SO < 16 UNITS
[2022-11-06 16:16] LABS: M. Pneumoniae IGG 2.52
[2022-11-06 19:10] LABS: Legionella pneumophilia Ag, Ur NOT DETECTED
[2022-11-08 18:16] LABS: Angiotensin Converting Enzy-SO 39 U/L (9-67)
[2022-11-12 20:51] LABS: Myeloperoxidase Antibody <1.0 AI (<1.0)
== END 2022-11-04 12:30 | disposition home health service (06) | DRG 196 ==
LOC: ED 09:39 → ICU 15:50
PROVIDERS: ADMIT Internal Medicine; ATTEND Internal Medicine